=== PATIENT | male | born 1930 | race Caucasian/White ===

== ENCOUNTER 2016-10-25 21:43 | Emergency (ER) | payer MEDICARE, BC ==
[~2016-10-25] VITALS: Ht 167.6 cm; Wt 78.4 kg
[~2016-10-25 21:43] MED LIST: ASPI-483 PO; ATEN-39 PO; INSU100C11 SQ; INSU100C13 SQ; LEVO75TA58 PO; LISI-126 PO; NIFE90TA7 PO; SIMV80TA54 PO
[2016-10-25 21:45] VITALS: TEMP 99.8; Ht 167.6 cm; Wt 78.4 kg
--- OUTSIDE RECORDS SUMMARY | 2016-10-25 21:47 | XMS REPORT | Continuity of Care Document ---
Author Author [facility] Organization [facility] Address Unknown Phone Unavailable Allergies Active Description Code Type Severity Reaction Onset Reported/Identified Relationship to Patient Clinical Status Yes No Known Contrast Allergies No Known Contrast Allergies Drug Allergy Unknown N/A 02/14/2004 Yes No Known Drug Allergies No Known Drug Allergies Drug Allergy Unknown N/A 02/14/2004 Yes No Known Drug Intolerances No Known Drug Intolerances Drug Allergy Unknown N/A 02/14/2004 Yes No Known Food Allergies No Known Food Allergies Drug Allergy Unknown N/A 02/14/2004 Yes NO KNOWN LATEX ALLERGY/SENSITI NO KNOWN LATEX ALLERGY/SENSITI Drug Allergy Unknown N/A 2003 Yes No Known Drug Intolerances No Known Drug Intolerances Drug Allergy Unknown none 06/05/2015 Medications Problems Date Dx Coded Attending Type Code Diagnosis Diagnosed By 06/05/2015 Jayjay Back MD D64.9 ANEMIA, UNSPECIFIED 06/05/2015 Jayjay Back MD E11.21 TYPE 2 DIABETES MELLITUS WITH DIABETIC NEPHROPATHY 06/05/2015 Jayjay Back MD 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 06/05/2015 Jayjay Back MD E83.39 OTHER DISORDERS OF PHOSPHORUS METABOLISM 06/05/2015 Jayjay Back MD 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 06/05/2015 Jayjay Back MD 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 06/05/2015 Jayjay Back MD I95.1 ORTHOSTATIC HYPOTENSION 06/05/2015 Jayjay Back MD J44.9 CHRONIC OBSTRUCTIVE PULMONARY DISEASE, UNSPECIFIED 06/05/2015 Jayjay Back MD N17.9 ACUTE KIDNEY FAILURE, UNSPECIFIED 06/05/2015 Jayjay Back MD N18.3 CHRONIC KIDNEY DISEASE, STAGE 3 (MODERATE) 06/05/2015 Jayjay Back MD R55 SYNCOPE AND COLLAPSE 06/05/2015 Jayjay Back MD Z66 DO NOT RESUSCITATE 06/05/2015 Jayjay Back MD Z79.4 NURSING HOME (CURRENT) USE OF INSULIN 06/05/2015 Jayjay Back MD Z95.1 PRESENCE OF AORTOCORONARY BYPASS GRAFT Procedures Code Description Performed By Performed On [id number] MEASURE OF CARDIAC SAMPL PRESSURE, L HEART, CHAO Back MD, [facility] 06/05/2015 [id number] MEASUREMENT OF ARTERIAL FLOW, CORONARY, PERC APPRO Wong DOUGLASS, [facility] 06/05/2015 [id number] FLUOROSCOPY OF MULT COR ART USING L OSM CONTRAST Wong DOUGLASS [facility] 06/05/2015 [id number] FLUOROSCOPY OF MULT COR A GRAFT USING L OSM CONTRA Wong DOUGLASS, Jayjay 06/05/2015 [id number] FLUOROSCOPY OF R INT MAMM GRAFT USING L OSM CONTRA Wong DOUGLASS [facility] 06/05/2015 [id number] FLUOROSCOPY OF L INT MAMM GRAFT USING L OSM CONTRA 06/05/2015 [id number] FLUOROSCOPY OF BILATERAL RENAL ARTERIES USING L OS Wong DOUGLASS [facility] 06/05/2015 [id number] FLUOROSCOPY OF OTHER LOWER ARTERIES USING L OSM CO Wong DOUGLASS [facility] 06/05/2015 Results Test Result Range URINALYSIS, ROUTINE - 06/05/15 14:20 UA LEUKOCYTE ESTERASE DIPSTICK NEGATIVE NEGATIVE UA NITRITE DIPSTICK NEGATIVE NEGATIVE UA PROTEIN DIPSTICK 1+ NEGATIVE UA GLUCOSE DIPSTICK NEGATIVE NEGATIVE UA KETONE DIPSTICK NEGATIVE NEGATIVE UA UROBILINOGEN DIPSTICK NORMAL NORMAL UA BILIRUBIN DIPSTICK NEGATIVE NEGATIVE UA BLOOD DIPSTICK NEGATIVE NEGATIVE UA SPECIFIC GRAVITY 1.020 1.015-1.025 UR PH 5.0 5.0-7.0 UA MICROSCOPIC - 06/05/15 14:20 UA BACTERIA 1+ NEGATIVE UA EPITHELIAL CELLS 1+ epi/hpf 0 - 1+ UA GRANULAR CAST 2-5 cast/lpf NEGATIVE UA MUCUS 2+ NEG TO 1+ UA RBC 0-3 rbc/hpf 0 - 3 UA SPERM PRESENT UA VOLUME FOR EXAM 12.0 mL (12mL STD) UA WBC 2-5 wbc/hpf 0 - 5 B-TYPE NATRIURETIC PEPTIDE - 06/05/15 14:24 B-TYPE NATRIURETIC PEPTIDE 107 pg/mL < 100 CBC W/DIFF - 06/05/15 14:24 EOSINOPHIL # 0.3 k/cumm 0.1-0.5 EOSINOPHIL % 2 % 2-4 GRANULOCYTE # 10.0 k/cumm 2.0-9.0 GRANULOCYTE % 64 % 50-75 LYMPHOCYTE # 4.2 k/cumm 1.0-4.0 LYMPHOCYTE % 27 % 20-30 MEAN CELL HGB 27.9 pg 27.0-33.0 MEAN CELL HGB CONCENTRATION 31.3 g/dL 32.0-37.0 MEAN CELL VOLUME 89.3 fl 80.0-100.0 MONOCYTE # 1.1 k/cumm 0.1-1.0 MONOCYTE % 7 % 4-6 RED BLOOD CELL 4.66 m/cumm 4.00-6.00 RED CELL DISTRIBUTION WIDTH 14.7 % 11.0- 15.6 WHITE BLOOD CELL 15.6 k/cumm 5.0-10.0 HEMOGLOBIN 13.0 gm/dL 14.0-18.0 HEMATOCRIT 41.6 % 40.0-54.0 PLATELET COUNT 331 k/cumm 150-400 PROTHROMBIN TIME WITH INR - 06/05/15 14:24 INTERNATIONAL NORMAL RATIO 1.1 0.9-1.1 PROTHROMBIN TIME 12.1 sec 9.3-12.2 PARTIAL THROMBOPLASTIN TIME - 06/05/15 14:24 PARTIAL THROMBOPLASTIN TIME 33 sec 23-39 METABOLIC PANEL, COMPREHN - 06/05/15 14:24 POTASSIUM 4.8 mmol/L 3.5-5.3 EST GFR (MDRD) 30 mL/min > 59 ANION GAP 8 mmol/L 5-15 EST CrCl (CG) 26 mL/min > 59 GLUCOSE 212 mg/dL 70-99 CALCIUM 8.2 mg/dL 8.5-10.1 BLOOD UREA NITROGEN 35 mg/dL 7-20 CREATININE 2.1 mg/dL 0.7-1.3 SODIUM 139 mmol/L 135-148 CHLORIDE 107 mmol/L 98-110 AST/SGOT 13 Units/L 10-37 ALT/SGPT 21 Units/L < 66 CARBON DIOXIDE 24 mmol/L 21-32 TOTAL PROTEIN 7.8 gm/dL 6.4-8.2 ALBUMIN 3.1 gm/dL 3.4-5.0 BILI TOTAL 0.4 mg/dL 0.0-1.0 ALKALINE PHOSPHATASE TOTAL 99 IU/L 45- 117 MAGNESIUM - 06/05/15 14:24 MAGNESIUM 1.9 mg/dL 1.8-2.4 THYROID STIM HORMONE (TSH) - 06/05/15 14:24 THYROID STIM HORMONE (TSH) 2.90 uIU/mL 0.34-4.82 TROPONIN I - 06/05/15 14:24 TROPONIN I < 0.02 ng/mL < 0.07 GLUCOSE (POC) - 06/05/15 17:07 GLUCOSE (POC) 221 mg/dL 70-99 TROPONIN I - 06/05/15 17:53 TROPONIN I < 0.02 ng/mL < 0.07 GLUCOSE (POC) - 06/05/15 20:00 GLUCOSE (POC) 163 mg/dL 70-99 TROPONIN I - 06/05/15 22:39 TROPONIN I < 0.02 ng/mL < 0.07 GLUCOSE (POC) - 06/06/15 04:54 GLUCOSE (POC) 155 mg/dL 70-99 METABOLIC PANEL, BASIC - 06/06/15 05:14 POTASSIUM 4.3 mmol/L 3.5-5.3 EST GFR (MDRD) 34 mL/min > 59 ANION GAP 7 mmol/L 5-15 EST CrCl (CG) 29 mL/min > 59 GLUCOSE 153 mg/dL 70-99 CALCIUM 8.0 mg/dL 8.5-10.1 BLOOD UREA NITROGEN 35 mg/dL 7-20 CREATININE 1.9 mg/dL 0.7-1.3 SODIUM 139 mmol/L 135-148 CHLORIDE 108 mmol/L 98-110 CARBON DIOXIDE 24 mmol/L 21-32 LIPID PANEL - 06/06/15 05:14 CHOLESTEROL/HDL RATIO 5.0 < 5.0 LDL CHOLESTEROL 83 mg/dL < 100 VLDL CHOLESTEROL 33 mg/dL < 30 TRIGLYCERIDES 164 mg/dL < 150 CHOLESTEROL 145 mg/dL < 200 HDL CHOLESTEROL 29 mg/dL > 39 GLUCOSE (POC) - 06/06/15 12:16 GLUCOSE (POC) 113 mg/dL 70-99 GLUCOSE (POC) - 06/06/15 17:10 GLUCOSE (POC) 101 mg/dL 70-99 GLUCOSE (POC) - 06/06/15 21:00 GLUCOSE (POC) 275 mg/dL 70-99 GLUCOSE (POC) - 06/07/15 07:09 GLUCOSE (POC) 124 mg/dL 70-99 CBC - 06/07/15 11:20 MEAN CELL HGB 28.2 pg 27.0-33.0 MEAN CELL HGB CONCENTRATION 32.1 g/dL 32.0-37.0 MEAN CELL VOLUME 88.0 fl 80.0-100.0 RED BLOOD CELL 4.43 m/cumm 4.00-6.00 RED CELL DISTRIBUTION WIDTH 14.6 % 11.0- 15.6 WHITE BLOOD CELL 12.4 k/cumm 5.0-10.0 HEMOGLOBIN 12.5 gm/dL 14.0-18.0 HEMATOCRIT 39.0 % 40.0-54.0 PLATELET COUNT 335 k/cumm 150-400 RENAL FUNCTION PANEL - 06/07/15 11:20 POTASSIUM 4.3 mmol/L 3.5-5.3 EST GFR (MDRD) 34 mL/min > 59 ANION GAP 6 mmol/L 5-15 EST CrCl (CG) 29 mL/min > 59 GLUCOSE 80 mg/dL 70-99 CALCIUM 8.1 mg/dL 8.5-10.1 BLOOD UREA NITROGEN 34 mg/dL 7-20 CREATININE 1.9 mg/dL 0.7-1.3 SODIUM 141 mmol/L 135-148 CHLORIDE 107 mmol/L 98-110 CARBON DIOXIDE 28 mmol/L 21-32 ALBUMIN 2.9 gm/dL 3.4-5.0 PHOSPHORUS 2.7 mg/dL 2.5-4.9 GLUCOSE (POC) - 06/07/15 11:29 GLUCOSE (POC) 83 mg/dL 70-99 GLUCOSE (POC) - 06/07/15 17:17 GLUCOSE (POC) 129 mg/dL 70-99 GLUCOSE (POC) - 06/07/15 20:59 GLUCOSE (POC) 194 mg/dL 70-99 GLUCOSE (POC) - 06/08/15 05:35 GLUCOSE (POC) 125 mg/dL 70-99 GLUCOSE (POC) - 06/08/15 11:53 GLUCOSE (POC) 129 mg/dL 70-99 GLUCOSE (POC) - 06/08/15 17:27 GLUCOSE (POC) 129 mg/dL 70-99 GLUCOSE (POC) - 06/08/15 20:27 GLUCOSE (POC) 191 mg/dL 70-99 PROTHROMBIN TIME WITH INR - 06/09/15 04:48 INTERNATIONAL NORMAL RATIO 1.0 0.9-1.1 PROTHROMBIN TIME 11.4 sec 9.3-12.2 CBC - 06/09/15 04:49 MEAN CELL HGB 27.9 pg 27.0-33.0 MEAN CELL HGB CONCENTRATION 31.8 g/dL 32.0-37.0 MEAN CELL VOLUME 87.8 fl 80.0-100.0 RED BLOOD CELL 4.33 m/cumm 4.00-6.00 RED CELL DISTRIBUTION WIDTH 14.8 % 11.0- 15.6 WHITE BLOOD CELL 13.3 k/cumm 5.0-10.0 HEMOGLOBIN 12.1 gm/dL 14.0-18.0 HEMATOCRIT 38.0 % 40.0-54.0 PLATELET COUNT 318 k/cumm 150-400 RENAL FUNCTION PANEL - 06/09/15 04:49 POTASSIUM 4.4 mmol/L 3.5-5.3 EST GFR (MDRD) 36 mL/min > 59 ANION GAP 8 mmol/L 5-15 EST CrCl (CG) 31 mL/min > 59 GLUCOSE 147 mg/dL 70-99 CALCIUM 8.7 mg/dL 8.5-10.1 BLOOD UREA NITROGEN 27 mg/dL 7-20 CREATININE 1.8 mg/dL 0.7-1.3 SODIUM 140 mmol/L 135-148 CHLORIDE 109 mmol/L 98-110 CARBON DIOXIDE 23 mmol/L 21-32 ALBUMIN 3.0 gm/dL 3.4-5.0 PHOSPHORUS 2.3 mg/dL 2.5-4.9 MAGNESIUM - 06/09/15 04:49 MAGNESIUM 2.0 mg/dL 1.8-2.4 GLUCOSE (POC) - 06/09/15 05:37 GLUCOSE (POC) 160 mg/dL 70-99 GLUCOSE (POC) - 06/09/15 11:50 GLUCOSE (POC) 163 mg/dL 70-99 GLUCOSE (POC) - 06/09/15 17:16 GLUCOSE (POC) 122 mg/dL 70-99 GLUCOSE (POC) - 06/10/15 05:12 GLUCOSE (POC) 140 mg/dL 70-99 CBC - 06/10/15 06:46 MEAN CELL HGB 28.0 pg 27.0-33.0 MEAN CELL HGB CONCENTRATION 31.9 g/dL 32.0-37.0 MEAN CELL VOLUME 87.7 fl 80.0-100.0 RED BLOOD CELL 4.22 m/cumm 4.00-6.00 RED CELL DISTRIBUTION WIDTH 14.8 % 11.0- 15.6 WHITE BLOOD CELL 11.9 k/cumm 5.0-10.0 HEMOGLOBIN 11.8 gm/dL 14.0-18.0 HEMATOCRIT 37.0 % 40.0-54.0 PLATELET COUNT 298 k/cumm 150-400 RENAL FUNCTION PANEL - 06/10/15 09:39 POTASSIUM 4.4 mmol/L 3.5-5.3 EST GFR (MDRD) 38 mL/min > 59 ANION GAP 9 mmol/L 5-15 EST CrCl (CG) 32 mL/min > 59 GLUCOSE 190 mg/dL 70-99 CALCIUM 8.5 mg/dL 8.5-10.1 BLOOD UREA NITROGEN 24 mg/dL 7-20 CREATININE 1.7 mg/dL 0.7-1.3 SODIUM 139 mmol/L 135-148 CHLORIDE 106 mmol/L 98-110 CARBON DIOXIDE 24 mmol/L 21-32 ALBUMIN 2.9 gm/dL 3.4-5.0 PHOSPHORUS 2.6 mg/dL 2.5-4.9 GLUCOSE (POC) - 06/10/15 12:08 GLUCOSE (POC) 101 mg/dL 70-99 GLUCOSE (POC) - 06/10/15 17:01 GLUCOSE (POC) 107 mg/dL 70-99 GLUCOSE (POC) - 06/10/15 20:07 GLUCOSE (POC) 245 mg/dL RENAL FUNCTION PANEL - 06/11/15 04:48 POTASSIUM 4.2 mmol/L 3.5-5.3 EST GFR (MDRD) 34 mL/min > 59 ANION GAP 10 mmol/L 5-15 EST CrCl (CG) 29 mL/min > 59 GLUCOSE 132 mg/dL 70-99 CALCIUM 8.1 mg/dL 8.5-10.1 BLOOD UREA NITROGEN 33 mg/dL 7-20 CREATININE 1.9 mg/dL 0.7-1.3 SODIUM 139 mmol/L 135-148 CHLORIDE 107 mmol/L 98-110 CARBON DIOXIDE 22 mmol/L 21-32 ALBUMIN 2.7 gm/dL 3.4-5.0 PHOSPHORUS 2.8 mg/dL 2.5-4.9 GLUCOSE (POC) - 06/11/15 05:59 GLUCOSE (POC) 138 mg/dL 70-99 GLUCOSE (POC) - 06/11/15 10:06 GLUCOSE (POC) 158 mg/dL 70-99 GLUCOSE (POC) - 06/11/15 12:18 GLUCOSE (POC) 359 mg/dL 70-99 GLUCOSE (POC) - 06/11/15 18:09 GLUCOSE (POC) 140 mg/dL 70-99 GLUCOSE (POC) - 06/11/15 21:21 GLUCOSE (POC) 191 mg/dL 70-99 RENAL FUNCTION PANEL - 06/12/15 05:13 POTASSIUM 4.4 mmol/L 3.5-5.3 EST GFR (MDRD) 36 mL/min > 59 ANION GAP 8 mmol/L 5-15 EST CrCl (CG) 31 mL/min > 59 GLUCOSE 123 mg/dL 70-99 CALCIUM 8.3 mg/dL 8.5-10.1 BLOOD UREA NITROGEN 30 mg/dL 7-20 CREATININE 1.8 mg/dL 0.7-1.3 SODIUM 139 mmol/L 135-148 CHLORIDE 108 mmol/L 98-110 CARBON DIOXIDE 23 mmol/L 21-32 ALBUMIN 2.7 gm/dL 3.4-5.0 PHOSPHORUS 2.4 mg/dL 2.5-4.9 GLUCOSE (POC) - 06/12/15 05:46 GLUCOSE (POC) 132 mg/dL 70-99 GLUCOSE (POC) - 06/12/15 12:40 GLUCOSE (POC) 152 mg/dL 70-99 Encounters ACCT No. Visit Date/Time Discharge Status Pt. Type Provider Facility Loc./Unit Complaint [id number] 06/05/2015 10:31:00 2015 17:39:00 DIS Inpatient Wong DOUGLASS, [facility] [id number]
[2016-10-25] MEDS ORDERED: ONDANSETRON 4mg/2ml INJECTION IV ONE (22:15)
[2016-10-25] MEDS ORDERED: NORMAL SALINE 1,000 ML IV ONE (22:15)
--- NOTE | 2016-10-25 22:16 | ERPDOC ---
Departure Disposition Decision Date: October 26, 2016 Disposition Decision Time: 01:53 Disposition: DISCHARGED HOME, SELF-CARE Impression Impression Impression: Primary Impression: Diverticulitis Diverticulitis site: large intestine Diverticulitis bleeding: without bleeding Diverticulitis complication: without perforation or abscess Qualified Codes: K57.32 - Diverticulitis of large intestine without perforation or abscess without bleeding Severity: Moderate Condition: Improved Seen By: Physician only Referrals: WOLF CRUZ DO (Family) Patient Instructions: Diverticulitis (ED) Problems/Meds/Labs Reviewed?: Yes Medications reviewed and manag: Yes Additional Instructions: Zofran 4 mg dissolvable tablets, one every 6 hours as needed for nausea Bactrim DS, one tablet twice daily for 10 days See your doctor later this week for any worsening or ongoing problems Follow up care ordered?: Yes Mental Status: Alert Scripts Ondansetron (Zofran Odt) 4 Mg Tab.rapdis 4 MG PO Q6HR, #10 TAB Oral disintegrating tablet Prov: WOLF STEELE MD 10/26/16 Sulfamethoxazole/Trimethoprim (Bactrim Ds Tablet) 1 Each Tablet 1 TAB PO BID, #20 TAB Take 1 tablet, by mouth, 2 times a day. Prov: WOLF STEELE MD 10/26/16 HPI - Abdominal Pain General Chief Complaint: Nausea,Vomiting,Diarrhea Stated Complaint: VOMITING,SYNCOPE Time Seen by Provider: 22:07 Source: patient History/Exam Limitations: no limitations HPI - Abdominal Pain Initial Comments Patient became nauseated as he was walking to go to the bathroom in his assisted living apartment [facility]. Once in the bathroom the patient vomited a large amount, and then walking back to bed patient became lightheaded, fell onto all fours, and then apparently passed out for a few seconds. Patient was able to initiate his medical arm, EMS was contacted and found the patient hypotensive briefly, but this realized by the time he was in the ER. Currently the patient states he is a full gassy feeling in the lower abdomen, mild persistent nausea, but all other symptoms have resolved. Occurred At: home Onset: Rapid Duration: 1 hr Quality: fullness Location: RLQ, LLQ Radiation: no radiation Associated Symptoms: nausea/vomiting, syncope, weakness, DENIES: back pain, chest pain, diaphoresis, fatigue, fever/chills, headache, heartburn, rash, shortness of breath, swelling/mass in abdomen Hx of Similar Symptoms: No Allergies: Coded Allergies: No Known Drug Allergies (Verified Allergy, Unknown, 08/25/11) Past History Patient Medical History Problem List Updates: Diverticulosis Past Medical History Metabolic: diabetes, hypercholesterolemia, hypertension Cardiac: CAD Respiratory: COPD Family History Family PMH: FOUND: COPD, CA, diabetes, hypertension Vaccines Hx Influenza Vaccination: Yes (2010) Hx Pneumococcal Vaccination: Yes (2008) Hx Tetanus, Diptheria, Pertuss: Yes (UNKNOWN, NO SKIN TEAR) Social History Smoking Status: Never smoker Does patient use chewing tobac: No Second Hand Exposure: No Substance Use Type: does not use Alcohol Intake: none Record Review Pertinent history updated: Yes Review of Systems Constitutional Constitutional: DENIES: appetite decrease, appetite increase, chills, dizziness , fever, weakness ENMT Ears: DENIES: pain Hearing: DENIES: hearing loss, tinnitus Balance: DENIES: vertigo Mouth/Throat: DENIES: change in swallowing, change in voice, hoarsness, painful swallowing, sore throat Cardiovascular Cardiac: DENIES: chest pain, dyspnea on exertion Rhythm/Rate: DENIES: irregular beat, palpitations, tachycardia Vascular: DENIES: pedal edema Pulmonary Respiratory: DENIES: cough, dyspnea, pleuritic chest pain GI Upper Abdomen: DENIES: dysphagia, heartburn/indigestion, nausea, pain, vomiting Lower Abdomen: DENIES: blood in stool, constipation, diarrhea, pain General: DENIES: burning, dysuria, frequency, pain, urgency Musculoskeletal General: DENIES: cramps, joint pain, joint swelling, pain, weakness Integumentary Skin: DENIES: rash, sores Neurological General: DENIES: headache, numbness, tingling, vertigo, weakness Psychiatric Psychiatric: DENIES: anxiety, depression, nervousness Physical Exam General General Nourishment: well nourished, well developed, appears stated age, no acute distress General Body Habitus: well groomed Vitals and Pain First Documented Vital Signs Date Time Temp Pulse Resp B/P Pulse Ox O2 Delivery O2 Flow Rate FiO2 10/25/16 21:45 99.8 70 20 139/62 96 Room Air Weight: Kilograms: Height (feet): Height (inches): Triage Pain Scale: RN VS reviewed by Provider: Yes Normal Exams: Head: Normocephalic w/o trauma Eyes: Pupils are PERRLA w/ EOMI, No scleral icterus, irritation, or foreign bodies noted ENMT: No facial trauma, nasal exudates, pharyngeal erythema, or exudates are noted Neck: Full range of motion, without adenopathy, JVD, bruits or thyromegaly Chest/Resp: Clear all arambula, with good airflow, and symmetry bilaterally CV: Regular rate and rhythm, without murmur or gallop, Pulses 2+ all extremities, capillary refill, <2 seconds all ext., no pedal edema noted Lymphatic: No lymphadenopathy, or lymphedema noted Musculoskeletal: No tenderness, or deformity noted, good range of motion, all extremities Integumentary: No rashes, hives, or bruising noted, hair and nails, without abnormality Neurologic: Patient is alert, and oriented, cranial nerves, motor/sensory/ cerebellar, exams w/o gross deficits, to observation Psychiatric: Patient exhibits, appropriate attention, emotion and affect Abdomen (brief) Abdominal Brief: FOUND: bowel normo active x4, soft, tender (mild diffuse lobe Neo tenderness, minimal.), NOT FOUND: distended, hepatosplenomegaly, pulsatile mass Progress Results/Orders Orders Procedure Category Date Status Time Iv Lock (Ed Only) EDM 10/25/16 Transmitted 22:08 Cbc W/Auto LAB 10/25/16 Complete Diff-Reflex Manual Cmp - Comprehensive LAB 10/25/16 Complete Metabolic Ondansetron Inj PHA 10/25/16 Complete (Zofran) 22:15 Normal Saline (Normal PHA 10/25/16 Complete Saline Iv) 22:15 Ct Abd/Pelvis W/O CT 10/25/16 Logged Contrast Hydromorphone PHA 10/26/16 Complete (Dilaudid) 00:00 Sulfamethoxazole/Trimethoprim PHA 10/26/16 In Process (Bactrim D 09:00 Methylprednisolone PHA 10/26/16 Complete Sod Succ (Solu-Medrol 01:30 Ondansetron Odt PHA 10/26/16 Complete (Prepack) (Zofran Odt 01:30 UA, LAB 10/26/16 Complete Dip&Micro(Complete) & 01:21 Lab Results Laboratory Tests Test 10/25/16 22:21 10/26/16 01:21 White Blood Count 13.6T/MM3 Red Blood Count 4.02M/MM3 Hemoglobin 12.0GM/DL Hematocrit 36.5% Mean Corpuscular Volume 90.8UM3 Mean Corpuscular Hemoglobin 29.9UUG Mean Corpuscular Hemoglobin Concent 32.9GM/DL RDW Standard Deviation 47.2FL Platelet Count 467T/MM3 Mean Platelet Volume 11.2UM3 Immature Granulocyte % (Auto) % Neutrophils (%) (Auto) % Lymphocytes (%) (Auto) % Monocytes (%) (Auto) % Eosinophils (%) (Auto) % Basophils (%) (Auto) % Absolute Immature Granulocyte (auto T/MM3 Absolute Neutrophils (auto) T/MM3 Absolute Lymphocytes (auto) T/MM3 Absolute Monocytes (auto) T/MM3 Absolute Eosinophils (auto) T/MM3 Absolute Basophils (auto) T/MM3 Neutrophils % (Manual) 81.0% Band Neutrophils % 3.0% Lymphocytes % (Manual) 12.0% Monocytes % (Manual) 3.0% Eosinophils % (Manual) 1.0% Absolute Neutrophils (Manual) 11.0T/MM3 Band Neutrophils # 0.4T/MM3 Lymphocytes # (Manual) 1.6T/MM3 Monocytes # (Manual) 0.4T/MM3 Eosinophils # (Manual) 0.1T/MM3 Red Cell Morphology Comment Normal Turbidity < 20 Sodium Level 145MEQ/L Potassium Level 3.8MEQ/L Chloride Level 101MEQ/L Carbon Dioxide Level 20MEQ/L Anion Gap 24MEQ/L Blood Urea Nitrogen 43.0MG/DL Creatinine 2.4MG/DL Glomerular Filtration Rate Calc 26 BUN/Creatinine Ratio 18RATIO Glucose Level 147MG/DL Calculated Osmolality 293MOSM/KG Calcium Level 9.4MG/DL Total Bilirubin 4.80MG/DL Icterus Index < 2 Aspartate Amino Transf (AST/SGOT) 148U/L Alanine Aminotransferase (ALT/SGPT) 138U/L Alkaline Phosphatase 1004U/L Total Protein 7.7G/DL Albumin 4.0G/DL Globulin 3.7G/DL Albumin/Globulin Ratio 1.1RATIO Chemistry Specimen Hemolysis < 15 Urine Collection Type Cleancatch-midstream Urine Color Yellow Urine Turbidity Clear Urine pH 5.0 Urine Specific Glover 1.020 Urine Protein 1+ Urine Glucose (UA) Trace Urine Ketones Negative Urine Blood 1+ Urine Nitrite Negative Urine Bilirubin 2+ Urine Urobilinogen 4.0EU/DL Urine Leukocyte Esterase Negative Urine RBC 1-3/HPF Urine WBC None seen/HPF Urine Bacteria None seen Urine Culture Indicated Cult not indicated Medications Current ED Medications Ondansetron HCl 4 mg 4 mg O ONCE IV Last administered on 10/25/16 22:32; Start 10/25/16 at 22:15; Stop 10/25/16 at 22:16; Status DC Sodium Chloride (Normal Saline IV) 1,000 ml @ 0 mls/hr Q0M ONCE IV Last administered on 10/25/16 22:32; Start 10/25/16 at 22:15; Stop 10/25/16 at 22:16 ; Status DC Hydromorphone HCl (Dilaudid) 0.5 mg O ONCE IV Last administered on 10/26/16 00:00; Start 10/26/16 at 00:00; Stop 10/26/16 at 00:01; Status DC Trimethoprim/ Sulfamethoxazole (Bactrim Ds) 1 tab BID PO Last administered on 01:30; Start 10/26/16 at 09:00 Methylprednisolone Sodium Succinate (Solu-Medrol) 125 mg O ONCE IV Last administered on 10/26/16 01:27; Start 10/26/16 at 01:30; Stop 10/26/16 at 01:31 ; Status DC Ondansetron HCl (ZOFRAN ODT (PrePack)) 1 pack O ONCE SENT HOME Last administered on 10/26/16 01:29; Start 10/26/16 at 01:30; Stop 10/26/16 at 01:31 ; Status DC Progress Progress Patient given 1 L normal saline IV fluid bolus and Zofran 4 mg IV - patient has had no relief Given Dilaudid 0.5 mg IV CBC - normal CMP - shows significant abnormalities consistent with the patient's previous history, but we have no reference loss since 2011. Creatinine is elevated at 2+ , bilirubin is elevated at 4.9, liver enzymes are globally elevated with alkaline phosphatase greater than 1000. UA -positive bilirubin, otherwise normal CT abdomen pelvis without - mild diverticulitis Patient elects home treatment, started on her 25 mg Solu-Medrol IV in the ER and Bactrim DS twice daily for 10 days. Patient also given Zofran for nausea Patient has known, and bile duct traction, is seeing a specialist in 3 weeks, and has no symptoms with stable lab values. WOLF STEELE MD October 25, 2016 22:16
--- OUTSIDE RECORDS SUMMARY | 2016-10-25 22:19 | XMS REPORT | Continuity of Care Document ---
Author Author [facility] Organization [facility] Address Unknown Phone Unavailable Allergies Active [...] MD N17.9 ACUTE KIDNEY FAILURE, UNSPECIFIED 06/05/2015 aJyjay Back MD N18.3 CHRONIC KIDNEY DISEASE, STAGE 3 (MODERATE) 06/05/2015 Jayjay Back MD R55 SYNCOPE AND COLLAPSE 06/05/2015 Jayjay Back MD Z66 DO NOT RESUSCITATE 06/05/2015 Jayjay Back MD Z79.4 PRISON (CURRENT) USE OF INSULIN 06/05/2015 Jayjay Back MD Z95.1 PRESENCE OF AORTOCORONARY BYPASS GRAFT Procedures Code Description Performed By Performed On [id number] MEASURE OF CARDIAC SAMPL PRESSURE, L HEART, CHAO Back MD, [facility] 06/05/2015 [id number] MEASUREMENT OF ARTERIAL FLOW, CORONARY, PERC APPRO Wong DOUGLASS, [facility] 06/05/2015 [id number] FLUOROSCOPY OF MULT COR ART USING L OSM CONTRAST Wong DOUGLASS [facility] 06/05/2015 [id number] FLUOROSCOPY OF MULT COR A GRAFT USING L OSM CONTRA Wong DOUGLASS, Jayjay 06/05/2015 [id number] FLUOROSCOPY OF R INT MAMM GRAFT USING L OSM CONTRA Wong DOUGLASS [facility] 06/05/2015 [id number] FLUOROSCOPY OF L INT MAMM GRAFT USING L OSM CONTRA 06/05/2015 [id number] FLUOROSCOPY OF BILATERAL RENAL ARTERIES USING L OS Wong DOUGLASS [facility] 06/05/2015 [id number] FLUOROSCOPY OF OTHER LOWER ARTERIES USING L OSM CO Wong DOUGLASS [facility] 06/05/2015 Results Test Result Range URINALYSIS, ROUTINE [...] Status Pt. Type Provider Facility Loc./Unit Complaint [id number] 06/05/2015 10:31:00 2015 17:39:00 DIS Inpatient Wong DOUGLASS, [facility] [address]
--- NOTE | 2016-10-25 22:20 | NUR ---
LAB IN WITH ELIZABETH
--- NOTE | 2016-10-25 22:20 | NUR ---
PHARMACY PT STATES THAT HE USES [facility]
[2016-10-25 22:29] LABS: HCT - HEMATOCRIT 36.5 % (41-53); MEAN CORPUSCULAR HGB 29.9 UUG (26-34); MEAN CORPUSCULAR HGB CONC(MCHC 32.9 GM/DL (31-37); MEAN CORPUSCULAR VOLUME 90.8 UM3 (80-100); MEAN PLATELET VOLUME 11.2 UM3 (9.4-12.4); RED BLOOD COUNT 4.02 M/MM3 (4.50-5.90); WBC - WHITE BLOOD COUNT 13.6 T/MM3 (4.5-11.0)
[2016-10-25 22:38] LABS: ALBUMIN/GLOBULIN RATIO 1.1 RATIO (1.1-2.2); ALKALINE PHOSPHATASE 1004 U/L (38-126); ALT (SGPT) 138 U/L (21-72); ANION GAP 24 MEQ/L (5-15); AST (SGOT) 148 U/L (17-59); BUN/CREATININE RATIO 18 RATIO (6-26); CALCIUM 9.4 MG/DL (8.4-10.2); CHLORIDE 101 MEQ/L (98-107); CO2 - CARBON DIOXIDE 20 MEQ/L (22-30); CREATININE 2.4 MG/DL (0.8-1.5); GLOMERULAR FILTRATION RATE 26; GLUCOSE 147 MG/DL (75-110); POTASSIUM 3.8 MEQ/L (3.6-5); SODIUM 145 MEQ/L (134-144); TOTAL PROTEIN 7.7 G/DL (6.3-8.2)
[2016-10-25 22:48] LABS: BAND NEUTROPHILS # 0.4 T/MM3; EOSINOPHILS # (MANUAL) 0.1 T/MM3 (0-0.5); LYMPHOCYTES # (MANUAL) 1.6 T/MM3 (1-4.8); MONOCYTES # (MANUAL) 0.4 T/MM3 (0-0.8)
[2016-10-26] MEDS ORDERED: HYDROMORPHONE 2mg/ml INJECTION IV ONE
--- NOTE | 2016-10-26 00:57 | NUR ---
STATUS PT RESTING WITH EYES CLOSED ON CART. RESPIRATIONS EVEN AND UNLABORED.
[2016-10-26 01:28] LABS: BLOOD, URINE 1+ (NEGATIVE); COLOR,URINE YELLOW (YELLOW); LEUKOCYTE ESTERASE ,URINE NEGATIVE (NEGATIVE); NITRITE,URINE NEGATIVE (NEGATIVE)
[2016-10-26] MEDS ORDERED: ONDANSETRON ODT 4mg #3 (PrePack) SENT HOME ONE (01:30)
[2016-10-26 01:32] LABS: BACTERIA,URINE NONE SEEN (NEGATIVE); WBC,URINE NONE SEEN /HPF (0-5)
[2016-10-26] MEDS ORDERED: SULF1TAB42 PO (01:54)
[2016-10-26] MEDS ORDERED: ONDA4TAB7 PO (01:54)
[2016-10-26 02:07] VITALS: BP 119/56; PULSE 62; RESP 12; O2SAT 94
--- NOTE | 2016-10-26 02:07 | NUR ---
DEPART PT IS DISCHARGED AT THIS TIME, PT IS ASSISTED TO DRESS BY FAMILY AND LEAVES VIA WHEELCHAIR.
--- NOTE | 2016-10-26 07:58 | DI ---
Indication: ITS.REASON: lower abd pain, vomiting PROCEDURE: CT ABD/PELVIS W/O CONTRAST: Encounter: Initial Comparison: August 11, 2016 Technique: Axial CT images were performed through the abdomen and pelvis without intravenous contrast. Coronal and sagittal two-dimensional reformats. Automated Exposure Control and Iterative Reconstruction dose reducing techniques were utilized. Findings: The possible intrapulmonary lymph node along the right major fissure measuring 6 mm in size on axial image #12. Mild atelectasis in the right lower lobe. Heart is enlarged. The liver shows no contour deforming mass and scattered granulomas. The gallbladder is surgically absent. Granulomatous disease within the normal sized spleen. There is density within the distal common duct, similar to the prior study with continued dilatation of the extrahepatic duct which has worsened now measuring up to 2 cm in diameter. Kidneys are stable. No abdominal or pelvic adenopathy or bladder appears normal. No free fluid. Sigmoid diverticulosis is again noted without evidence of acute diverticulitis. Some colonic wall thickening the proximal sigmoid colon. There is a giant diverticulum again noted between the sigmoid colon and the bladder without adjacent inflammatory change. No evidence of a bowel obstruction. The appendix is normal. Bone windows show degenerative changes in the spine. Impression: 1. Continued choledocholithiasis with worsening common duct obstruction. Again ERCP is recommended for further evaluation. 2. 6 mm right lower lobe pulmonary nodule. Recommend follow-up noncontrast chest CT in 12 months to evaluate for stability. 3. Colonic wall thickening in the proximal sigmoid colon. Recommend flexible sigmoidoscopy or colonoscopy for further evaluation to exclude neoplasm. There is a preliminary report by [facility]. .
[2016-10-26] MEDS ORDERED: SULFAMETHOXAZOLE/TMP 800mg/160mg TABLET PO SCH (09:00)
== END 2016-10-26 02:07 | disposition home or self-care (01) ==
LOC: ED 21:43
DX: K57.32 Diverticulitis of large intestine without perforation or abscess without bleeding (principal)
CPT/HCPCS: 74176; 80053; 81001; 85025; 96361; 96374; 96375; 99284; A9270; J1170; J2405; J2930; J7030

== ENCOUNTER 2017-05-02 12:12 | Inpatient (IN) ==
--- OUTSIDE RECORDS SUMMARY | 2017-05-02 12:29 | External Medical Summary | Continuity of Care Document ---
:1930 Author Organization [facility] Allergies Active Description Code Type Severity Reaction Onset Reported/ Identified Relationship Clinical to Patient Status Yes No Known No Drug Unknown N/A 02/14/2004 Contrast Known Aller Allergies Contr gy ast Aller gies Yes No Known No Drug Unknown N/A 02/14/2004 Drug Known Aller Allergies Drug gy Aller gies Yes No Known No Drug Unknown N/A 02/14/2004 Drug Known Aller Intolerances Drug gy Intol eranc es Yes No Known No Drug Unknown N/A 02/14/2004 Food Known Aller Allergies Food gy Aller gies Yes NO KNOWN NO Drug Unknown N/A 02/14/2004 LATEX KNOWN Aller ALLERGY/SENS LATEX gy ITI ALLER GY/SE NSITI Yes No Known No Drug Unknown none 06/05/2015 Drug Known Aller Intolerances Drug gy Intol eranc es Medications Problems Date Dx Attending Type Code Diagnosis Diagnosed By Coded 06/05/2015 Wong DOUGLASS, F D64.9 ANEMIA, UNSPECIFIED Jayjay 06/05/2015 Wong DOUGLASS, F 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 06/05/2015 Wong DOUGLASS, F E11.22 TYPE 2 DIABETES Jayjay MELLITUS W DIABETIC CHRONIC KIDNEY 06/05/2015 Wong DOUGLASS, F 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 06/05/2015 Wong DOUGLASS, F I12.9 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 06/05/2015 Wong DOUGLASS, F 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 06/05/2015 Wong DOUGLASS, F I95.1 ORTHOSTATIC Jayjay HYPOTENSION 06/05/2015 Wong DOUGLASS, F J44.9 CHRONIC OBSTRUCTIVE Jayjay PULMONARY DISEASE, UNSPECIFIED 06/05/2015 Wong DOUGLASS, F N17.9 ACUTE KIDNEY Jayjay FAILURE, UNSPECIFIED 06/05/2015 Wong DOUGLASS, F N18.3 CHRONIC KIDNEY Jayjay DISEASE, STAGE 3 (MODERATE) 06/05/2015 Wong DOUGLASS, A R55 SYNCOPE AND COLLAPSE Jayjay 06/05/2015 Wong DOUGLASS, F Z66 DO NOT RESUSCITATE Jayjay 06/05/2015 Wong DOUGLASS, F 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 06/05/2015 Wong DOUGLASS, F 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 10/28/2016 Jovana DOUGLASS, J F D64.9 ANEMIA, UNSPECIFIED Anirudh 10/28/2016 Jovana DOUGLASS, J F D72.829 ELEVATED WHITE BLOOD Anirudh CELL COUNT, UNSPECIFIED 10/28/2016 Jovana DOUGLASS, J F E03.9 HYPOTHYROIDISM, Anirudh UNSPECIFIED 10/28/2016 Jovana DOUGLASS, J F E11.649 TYPE 2 DIABETES Anirudh MELLITUS WITH HYPOGLYCEMIA WITHOUT 10/28/2016 Jovana DOUGLASS, J F E78.5 HYPERLIPIDEMIA, Anirudh UNSPECIFIED 10/28/2016 Jovana DOUGLASS, J F 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 10/28/2016 Jovana DOUGLASS, J F 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 10/28/2016 Jovana DOUGLASS, J F J44.9 CHRONIC OBSTRUCTIVE Anirudh PULMONARY DISEASE, UNSPECIFIED 10/28/2016 Jovana DOUGLASS, J F K57.92 DVTRCLI OF INTEST, Anirudh PART UNSP, W/O PERF OR ABSCESS 10/28/2016 Jovana DOUGLASS, J F K80.51 CALCULUS OF BILE Anirudh DUCT W/O CHOLANGITIS OR CHOLECYST 10/28/2016 Jovana DOUGLASS, J F K92.0 HEMATEMESIS Anirudh 10/28/2016 Jovana DOUGLASS, J F N17.9 ACUTE KIDNEY Anirudh FAILURE, UNSPECIFIED 10/28/2016 Jovana DOUGLASS, J F Z79.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) Anirudh USE OF INSULIN 10/28/2016 Jovana DOUGLASS, J F Z79.82 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) Anirudh USE OF ASPIRIN 10/28/2016 Jovana DOUGLASS, J F Z95.1 PRESENCE OF Anirudh AORTOCORONARY BYPASS GRAFT Procedures Code Description Performed By Performed On Jayjay Back MD 06/05/2015 [id number] MEASURE OF CARDIAC SAMPL PRESSURE, L HEART, PERC Amirani MD, [facility] 06/05/2015 [id number] MEASUREMENT OF ARTERIAL FLOW, CORONARY, CHAO Back MD, Jayjay 06/05/2015 [id number] FLUOROSCOPY OF MULT COR ART USING L OSM CONTRAST Wong DOUGLASS Jayjay 06/05/2015 [id number] FLUOROSCOPY OF MULT COR A GRAFT USING L OSM CONTRA Wong DOUGLASS Jayjay 06/05/2015 [id number] FLUOROSCOPY OF R INT MAMM GRAFT USING L OSM CONTRA 06/05/2015 [id number] FLUOROSCOPY OF L INT MAMM GRAFT USING L OSM CONTRA Wong DOUGLASS Jayjay 06/05/2015 [id number] FLUOROSCOPY OF BILATERAL RENAL ARTERIES USING L OS Wong DOUGLASS Jayjay 06/05/2015 [id number] FLUOROSCOPY OF OTHER LOWER ARTERIES USING L OSM CO Nettie Mace DO 10/28/2016 [id number] EXTIRPATION OF MATTER FROM COMMON BILE DUCT, ENDO Encounters ACCT Visit Discharge Status Pt. Type Provider Facility Loc./Unit Complaint No. Date/Time [id number] 10/28/2016 10/31/2016 DIS Inpatient oJvana [id number] [id number] 15:38:00 15:14:00 MD [facility] [id number] 06/05/2015 06/12/2015 DIS Inpatient Wong [id number] [id number] 10:31:00 17:39:00 , [facility]
--- NOTE | 2017-05-02 12:37 | Emergency Department Report ---
SOB HPI - General Chief Complaint: Shortness of Breath/Dyspnea <Rick Noriega - 05/03/17 07:11 > Stated Complaint: Sent by Dr Hill, diff breathing <Johanna Noriegan - 07:11> Time Seen by Provider: 05/02/17 12:15 <Rick Noriega - 05/03/17 07:11> Source: patient <KymvenkataJessica 05/02/17 12:37> Mode of arrival: wheelchair <Jessica Eddy 05/02/17 12:37> Limitations: no limitations <Jessica Eddy 05/02/17 12:37> - History of Present Illness Pt brought over from his PCP office where he arrived with a complaint of SOA and not feeling well for about 2 weeks. SpO2 at PCP was in the 80s after ambulation pt was dyspnic and showed some potential changes on his EKG. Here pt c/o SOA with a non productive cough. He denies CP or nausea but does report diaphoresis at night. Denies pedal edema <Jessica Eddy 05/02/17 12:37> MD Complaint: shortness of breath, cough <Jessica Eddy 05/02/17 12:41> Onset (ago): week(s) <Jessica Eddy 05/02/17 12:41> Severity: moderate <Jessica Eddy 05/02/17 12:41> Consistency/Duration: constant <Jessica Eddy 05/02/17 12:41> Relieving factors: nothing <Jessica Eddy 05/02/17 12:41> Exacerbating factors: exertion, movement <Jessica Eddy 05/02/17 12:41> Known history of: diabetes <Jessica Eddy 05/02/17 12:41> Associated symptoms: cough, diaphoresis <Jessica Eddy 05/02/17 12:41> Treatment prior to arrival: aspirin <Jessica Eddy 05/02/17 12:41> - Related Data Home oxygen amount: none <Jessica Eddy 05/02/17 12:41> Home Medications Medication Instructions Recorded Confirmed Atenolol 50 mg PO DAILY #0 06/18/09 05/02/17 Simvastatin [Zocor] 80 mg PO HS #0 06/18/09 05/02/17 Aspirin [Aspirin EC] 81 mg PO DAILY 04/27/17 05/02/17 Calcitriol [Rocaltrol] 0.25 mcg PO DAILY 04/27/17 05/02/17 Insulin Aspart [Novolog Flexpen] 8 unit SQ WB 04/27/17 05/02/17 Insulin Aspart [Novolog Flexpen] 10 unit SQ WS 04/27/17 05/02/17 Insulin Aspart [Novolog Flexpen] 14 unit SQ WL 04/27/17 05/02/17 Insulin Glargine,Hum.rec.anlog 60 unit SQ HS 04/27/17 05/02/17 [Lantus Solostar] Levothyroxine Sodium 50 mcg PO DAILY 04/27/17 05/02/17 NIFEdipine [Nifedipine ER] 90 mg PO DAILY 04/27/17 05/02/17 [place]-3S/Dha/Epa/Fish Oil [Fish 300 mg PO BID 04/27/17 05/02/17 Oil [place]-3 Softgel] Aspirin [Aspirin EC] 243 mg PO O 05/02/17 05/02/17 D-Methorphan/PE/Acetaminophen 2 tab PO BID PRN 05/02/17 05/02/17 [Tylenol Cold Multi-Symp Caplet] <Rick Noriega - 05/03/17 07:11> Allergies Allergy/AdvReac Type Severity Reaction Status Date / Time No Known Drug Allergies Allergy Unknown Verified 05/02/17 12:41 <Rick Noriega - 05/03/17 07:11> Review of Systems All systems: reviewed and negative except as stated <Jessica Eddy 12:41> Constitutional: Reports: weakness. Denies: fever, chills <Jessica Eddy 05/02/17 12:41> Cardiovascular: Reports: dyspnea on exertion. Denies: chest pain, palpitations , edema <Jessica Eddy 05/02/17 12:41> Respiratory: Reports: cough, dyspnea. Denies: wheezes <Jessica Eddy 05/02/17 12:41> Gastrointestinal: Denies: abdominal pain, nausea, vomiting, diarrhea < SurjitJessica Mclean 05/02/17 12:41> Musculoskeletal: Reports: arthralgia <SurjitJessica Edwina Mclean 05/02/17 12:41> Neurological: Reports: weakness <Jessica Eddy 05/02/17 12:41> [facility] Patient Stated Medical History Cataracts Yes Hypertension Yes Myocardial Infarction Yes Diabetes Mellitus Type 2 Yes Clinic Medical History NSTEMI (non-ST elevated myocardial infarction) (Acute Medical) Myocardial infarction acute (Acute Medical) Myocardial infarction complications (Acute Medical) 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) Essential (primary) hypertension (Chronic Medical) Mixed hyperlipidemia (Chronic Medical) Type 2 diabetes mellitus without complications (Chronic Medical) CKD (chronic kidney disease) (Chronic Medical) COPD (chronic obstructive pulmonary disease) (Chronic Medical) Hypoglycemia (Inactive Medical) <Rick Noriega 05/03/17 07:11> Surgical History: Eye Surgery <SurjitJessica Edwina 05/02/17 12:37> - Social History Smoking status: Former smoker <Luis DanieldavidJessica 05/02/17 12:37> Physical Exam - Limitations Limitations: no limitations <KymvenkataJessica Mclean 05/02/17 12:41> - General General appearance: alert <Rick Noriega 05/03/17 07:11> alert, in distress <SurjitJessica Bland 05/02/17 12:41> - Normal Exams: Head:: Normocephalic without trauma <Jessica Eddy Edwina Mclean 05/02/17 12:41> Eyes:: Pupils are PERRLA w/ EOMI <SurjitJessica Mclean 05/02/17 12:41> Neck:: Full range of motion, without adenopathy <Jessica Eddy Edwina Mclean 12:41> Cardiovascular:: Regular rate and rhythm, without murmur or gallop, Pulses 2+ all extremities <Jessica Eddy 05/02/17 12:41> Abdomen:: Bowel sounds positive, soft, non-tender, non-distended <Jessica Eddy R - 05/02/17 12:41> Musculoskeletal:: No tenderness, or deformity noted, good range of motion, all extremities <Jessica Eddy - 05/02/17 12:41> Integumentary:: No rashes <Jessica Eddy - 05/02/17 12:41> Neurological:: Patient is alert, and oriented, cranial nerves, motor/sensory/ cerebellar, exams w/o gross deficits, to observation <Jessica Eddy - 12:41> Psychiatric:: Patient exhibits, appropriate attention, emotion and affect < Jessica Eddy - 05/02/17 12:41> - Respiratory Respiratory exam: Present: respiratory distress, accessory muscle use. Absent: wheezes, stridor <GoveRick - 05/03/17 07:11> Present: respiratory distress, accessory muscle use < Jessica Eddy - 05/02/17 12:59> - Expanded Respiratory Exam Location: Right: decreased breath sounds, Lower: decreased breath sounds < Jessica Eddy - 05/02/17 12:59> - Cardiovascular Cardiovascular exam: Present: regular rate, normal rhythm, normal heart sounds. Absent: systolic murmur <Rick Noriega Q - 05/03/17 07:11> - Abdominal Exam Abdominal exam: Present: soft, normal bowel sounds. Absent: distention, tenderness <Rick Noriega Q - 05/03/17 07:11> - Neurological Exam Neurological exam: Present: alert, oriented X3 <Rick Noriega - 05/03/17 07: 11> - Psychiatric Psychiatric exam: Present: normal affect, normal mood <Rick Noriega Q - 05/03 07:11> Course Vital Signs Temperature 97.7 F 05/02/17 12:13 Pulse Rate 61 05/02/17 12:13 Respiratory Rate 26 H 05/02/17 12:13 Blood Pressure 188/78 H 05/02/17 12:13 Pulse Oximetry 95 05/02/17 12:13 Temperature 98.3 F 05/03/17 00:00 Pulse Rate 59 L 05/03/17 06:00 Respiratory Rate 42 H 05/03/17 06:00 Blood Pressure 168/79 H 05/03/17 06:00 Pulse Oximetry 97 05/03/17 06:00 <Rick Noriega - 05/03/17 07:11> Vital Signs Temperature 97.7 F 05/02/17 12:13 Pulse Rate 61 05/02/17 12:13 Respiratory Rate 26 H 05/02/17 12:13 Blood Pressure 188/78 H 05/02/17 12:13 Pulse Oximetry 95 05/02/17 12:13 Temperature 98.3 F 05/03/17 00:00 Pulse Rate 59 L 05/03/17 06:00 Respiratory Rate 42 H 05/03/17 06:00 Blood Pressure 168/79 H 05/03/17 06:00 Pulse Oximetry 97 05/03/17 06:00 <Jessica Eddy 05/02/17 12:41> Shortness of Breath/Dyspnea - [facility] Narrative Medical decision making narrative: This patient seen and examined by me, given EKG changes, EKG was presented to Dr. Back, cardiology. Dr. Rosales did not feel that this was an acute CO, however did agree that there was signs of myocardial ischemia. Patient's troponin returned at 3.3. Dr. Rosales was recontacted, decision was made to admit to the CCU, possible heart cath today. <Rick Noriega - 05/03/17 07:11> Labs, Xray, and EKG reviewed. Discussed with Dr Noriega who made notification with Dr Ty.. Pt is to be admitted for heart cath. Family and pt advised of findings and need for admission, questions answered and pt verbalizes understanding <Jessica Eddy 05/02/17 14:03> - Differential Diagnosis Likely: acute exacerbation of chronic obstructive airways disease, congestive heart failure, community acquired pneumonia, pulmonary embolism <Jessica Eddy 05/02/17 12:41> - Medical Records Attestation: I reviewed the patient's medical records. <Rick Noriega 07:11> - Lab Data Attestation: I reviewed the patient's lab results. <Rick Noriega - 05/03 07:11> I reviewed the patient's lab results. <Jessica Eddy 14:03> Result diagrams: 05/03/17 04:25 05/03/17 04:25 <Rick Noriega Q - 05/03/17 07:11> Lab Results 05/02/17 05/02/17 05/02/17 Range/Units 12:41 12:41 12:41 WBC 13.7 H (4.5-11.0) T/MM3 RBC 3.97 L (4.50-5.90) M/MM3 Hgb 11.2 L (13.5-17.5) GM/DL Hct 35.0 L (41-53) % MCV 88.2 (80-100) UM3 MCH 28.2 (26-34) UUG MCHC 32.0 (31-37) GM/DL RDW Std Deviation 48.2 (36.9-50.2) FL Plt Count 357 (130-400) T/MM3 MPV 11.3 (9.4-12.4) UM3 Immature Gran % (Auto) 0.3 (0.0-0.5) % Neut % (Auto) 72.0 H (33-66) % Lymph % (Auto) 18.0 L (23-45) % [place] % (Auto) 8.7 (0-9.0) % Eos % (Auto) 0.6 (0-4) % Baso % (Auto) 0.4 (0-2) % Neut # (Auto) 9.9 H (1.8-7.7) T/MM3 Lymph # (Auto) 2.5 (1-4.8) T/MM3 [place] # (Auto) 1.2 H (0-0.8) T/MM3 Eos # (Auto) 0.1 (0-0.5) T/MM3 Baso # (Auto) 0.1 (0-0.2) T/MM3 Abs Immat Gran (auto) 0.04 H (0.00-0.03) T/MM3 D-Dimer 1002 H (0-230) NG/ML Turbidity < 20 (0-20) Sodium 141 (134-144) MEQ/L Potassium 5.0 (3.6-5) MEQ/L Chloride 107 (98-107) MEQ/L Carbon Dioxide 19 L (22-30) MEQ/L Anion Gap 15 (5-15) MEQ/L BUN 50.0 H (9-20) MG/DL Creatinine 2.5 H (0.8-1.5) MG/DL GFR Calculation 24 BUN/Creatinine Ratio 20 (6-26) RATIO Glucose 228 H (75-110) MG/DL Calculated Osmolality 291 H (261-280) MOSM/KG Calcium 8.9 (8.4-10.2) MG/DL Total Bilirubin 0.70 (0.20-1.30) MG/DL Icterus Index < 2 (0-7) AST 26 (17-59) U/L ALT 44 (21-72) U/L Alkaline Phosphatase 177 H (38-126) U/L Troponin I 3.300 H (0-0.12) ng/ml B-Natriuretic Peptide 42513 H (0-175) pg/mL Total Protein 7.2 (6.3-8.2) G/DL Albumin 3.5 (3.5-5.0) G/DL Globulin 3.7 H (2.4-3.6) G/DL Albumin/Globulin Ratio 0.9 L (1.1-2.2) RATIO Plasma Lactate 2.2 (0.6-2.2) MMOL/L Specimen Hemolysis 18 (0-25) Ur Collection Type Urine Color (YELLOW) Urine Clarity Urine pH (5.0-8.0) Ur Specific [place] (1.015-1.025) Urine Protein (NEGATIVE) Urine Glucose (UA) (NEGATIVE) Urine Ketones (NEGATIVE) Urine Occult Blood (NEGATIVE) Urine Nitrate (NEGATIVE) Urine Bilirubin (NEGATIVE) Urine Urobilinogen (NORMAL) EU/DL Ur Leukocyte Esterase (NEGATIVE) Urine RBC (0-3) /HPF Urine WBC (0-5) /HPF Ur Transition Epith Cell /HPF Urine Bacteria (NEGATIVE) Ur Culture Indicated? 05/02/17 Range/Units 13:15 WBC (4.5-11.0) T/MM3 RBC (4.50-5.90) M/MM3 Hgb (13.5-17.5) GM/DL Hct (41-53) % MCV (80-100) UM3 MCH (26-34) UUG MCHC (31-37) GM/DL RDW Std Deviation (36.9-50.2) FL Plt Count (130-400) T/MM3 MPV (9.4-12.4) UM3 Immature Gran % (Auto) (0.0-0.5) % Neut % (Auto) (33-66) % Lymph % (Auto) (23-45) % [place] % (Auto) (0-9.0) % Eos % (Auto) (0-4) % Baso % (Auto) (0-2) % Neut # (Auto) (1.8-7.7) T/MM3 Lymph # (Auto) (1-4.8) T/MM3 [place] # (Auto) (0-0.8) T/MM3 Eos # (Auto) (0-0.5) T/MM3 Baso # (Auto) (0-0.2) T/MM3 Abs Immat Gran (auto) (0.00-0.03) T/MM3 D-Dimer (0-230) NG/ML Turbidity (0-20) Sodium (134-144) MEQ/L Potassium (3.6-5) MEQ/L Chloride (98-107) MEQ/L Carbon Dioxide (22-30) MEQ/L Anion Gap (5-15) MEQ/L BUN (9-20) MG/DL Creatinine (0.8-1.5) MG/DL GFR Calculation BUN/Creatinine Ratio (6-26) RATIO Glucose (75-110) MG/DL Calculated Osmolality (261-280) MOSM/KG Calcium (8.4-10.2) MG/DL Total Bilirubin (0.20-1.30) MG/DL Icterus Index (0-7) AST (17-59) U/L ALT (21-72) U/L Alkaline Phosphatase (38-126) U/L Troponin I (0-0.12) ng/ml B-Natriuretic Peptide (0-175) pg/mL Total Protein (6.3-8.2) G/DL Albumin (3.5-5.0) G/DL Globulin (2.4-3.6) G/DL Albumin/Globulin Ratio (1.1-2.2) RATIO Plasma Lactate (0.6-2.2) MMOL/L Specimen Hemolysis (0-25) Ur Collection Type Urine, catheter Urine Color Yellow (YELLOW) Urine Clarity Clear Urine pH 5.0 (5.0-8.0) Ur Specific [place] 1.025 (1.015-1.025) Urine Protein 2+ A (NEGATIVE) Urine Glucose (UA) Trace A (NEGATIVE) Urine Ketones Negative (NEGATIVE) Urine Occult Blood 1+ A (NEGATIVE) Urine Nitrate Negative (NEGATIVE) Urine Bilirubin Negative (NEGATIVE) Urine Urobilinogen 1.0 (NORMAL) EU/DL Ur Leukocyte Esterase Negative (NEGATIVE) Urine RBC 5-10 H (0-3) /HPF Urine WBC None seen (0-5) /HPF Ur Transition Epith Cell 1-3 /HPF Urine Bacteria Trace H (NEGATIVE) Ur Culture Indicated? Cult not indicated <Rick Noriega Q - 05/03/17 07:11> Lab Results 05/02/17 05/02/17 05/02/17 Range/Units 12:41 12:41 12:41 WBC 13.7 H (4.5-11.0) T/MM3 RBC 3.97 L (4.50-5.90) M/MM3 Hgb 11.2 L (13.5-17.5) GM/DL Hct 35.0 L (41-53) % MCV 88.2 (80-100) UM3 MCH 28.2 (26-34) UUG MCHC 32.0 (31-37) GM/DL RDW Std Deviation 48.2 (36.9-50.2) FL Plt Count 357 (130-400) T/MM3 MPV 11.3 (9.4-12.4) UM3 Immature Gran % (Auto) 0.3 (0.0-0.5) % Neut % (Auto) 72.0 H (33-66) % Lymph % (Auto) 18.0 L (23-45) % [place] % (Auto) 8.7 (0-9.0) % Eos % (Auto) 0.6 (0-4) % Baso % (Auto) 0.4 (0-2) % Neut # (Auto) 9.9 H (1.8-7.7) T/MM3 Lymph # (Auto) 2.5 (1-4.8) T/MM3 [place] # (Auto) 1.2 H (0-0.8) T/MM3 Eos # (Auto) 0.1 (0-0.5) T/MM3 Baso # (Auto) 0.1 (0-0.2) T/MM3 Abs Immat Gran (auto) 0.04 H (0.00-0.03) T/MM3 D-Dimer 1002 H (0-230) NG/ML Turbidity < 20 (0-20) Sodium 141 (134-144) MEQ/L Potassium 5.0 (3.6-5) MEQ/L Chloride 107 (98-107) MEQ/L Carbon Dioxide 19 L (22-30) MEQ/L Anion Gap 15 (5-15) MEQ/L BUN 50.0 H (9-20) MG/DL Creatinine 2.5 H (0.8-1.5) MG/DL GFR Calculation 24 BUN/Creatinine Ratio 20 (6-26) RATIO Glucose 228 H (75-110) MG/DL Calculated Osmolality 291 H (261-280) MOSM/KG Calcium 8.9 (8.4-10.2) MG/DL Total Bilirubin 0.70 (0.20-1.30) MG/DL Icterus Index < 2 (0-7) AST 26 (17-59) U/L ALT 44 (21-72) U/L Alkaline Phosphatase 177 H (38-126) U/L Troponin I 3.300 H (0-0.12) ng/ml B-Natriuretic Peptide 59656 H (0-175) pg/mL Total Protein 7.2 (6.3-8.2) G/DL Albumin 3.5 (3.5-5.0) G/DL Globulin 3.7 H (2.4-3.6) G/DL Albumin/Globulin Ratio 0.9 L (1.1-2.2) RATIO Plasma Lactate 2.2 (0.6-2.2) MMOL/L Specimen Hemolysis 18 (0-25) Ur Collection Type Urine Color (YELLOW) Urine Clarity Urine pH (5.0-8.0) Ur Specific [place] (1.015-1.025) Urine Protein (NEGATIVE) Urine Glucose (UA) (NEGATIVE) Urine Ketones (NEGATIVE) Urine Occult Blood (NEGATIVE) Urine Nitrate (NEGATIVE) Urine Bilirubin (NEGATIVE) Urine Urobilinogen (NORMAL) EU/DL Ur Leukocyte Esterase (NEGATIVE) Urine RBC (0-3) /HPF Urine WBC (0-5) /HPF Ur Transition Epith Cell /HPF Urine Bacteria (NEGATIVE) Ur Culture Indicated? 05/02/17 Range/Units 13:15 WBC (4.5-11.0) T/MM3 RBC (4.50-5.90) M/MM3 Hgb (13.5-17.5) GM/DL Hct (41-53) % MCV (80-100) UM3 MCH (26-34) UUG MCHC (31-37) GM/DL RDW Std Deviation (36.9-50.2) FL Plt Count (130-400) T/MM3 MPV (9.4-12.4) UM3 Immature Gran % (Auto) (0.0-0.5) % Neut % (Auto) (33-66) % Lymph % (Auto) (23-45) % [place] % (Auto) (0-9.0) % Eos % (Auto) (0-4) % Baso % (Auto) (0-2) % Neut # (Auto) (1.8-7.7) T/MM3 Lymph # (Auto) (1-4.8) T/MM3 [place] # (Auto) (0-0.8) T/MM3 Eos # (Auto) (0-0.5) T/MM3 Baso # (Auto) (0-0.2) T/MM3 Abs Immat Gran (auto) (0.00-0.03) T/MM3 D-Dimer (0-230) NG/ML Turbidity (0-20) Sodium (134-144) MEQ/L Potassium (3.6-5) MEQ/L Chloride (98-107) MEQ/L Carbon Dioxide (22-30) MEQ/L Anion Gap (5-15) MEQ/L BUN (9-20) MG/DL Creatinine (0.8-1.5) MG/DL GFR Calculation BUN/Creatinine Ratio (6-26) RATIO Glucose (75-110) MG/DL Calculated Osmolality (261-280) MOSM/KG Calcium (8.4-10.2) MG/DL Total Bilirubin (0.20-1.30) MG/DL Icterus Index (0-7) AST (17-59) U/L ALT (21-72) U/L Alkaline Phosphatase (38-126) U/L Troponin I (0-0.12) ng/ml B-Natriuretic Peptide (0-175) pg/mL Total Protein (6.3-8.2) G/DL Albumin (3.5-5.0) G/DL Globulin (2.4-3.6) G/DL Albumin/Globulin Ratio (1.1-2.2) RATIO Plasma Lactate (0.6-2.2) MMOL/L Specimen Hemolysis (0-25) Ur Collection Type Urine, catheter Urine Color Yellow (YELLOW) Urine Clarity Clear Urine pH 5.0 (5.0-8.0) Ur Specific [place] 1.025 (1.015-1.025) Urine Protein 2+ A (NEGATIVE) Urine Glucose (UA) Trace A (NEGATIVE) Urine Ketones Negative (NEGATIVE) Urine Occult Blood 1+ A (NEGATIVE) Urine Nitrate Negative (NEGATIVE) Urine Bilirubin Negative (NEGATIVE) Urine Urobilinogen 1.0 (NORMAL) EU/DL Ur Leukocyte Esterase Negative (NEGATIVE) Urine RBC 5-10 H (0-3) /HPF Urine WBC None seen (0-5) /HPF Ur Transition Epith Cell 1-3 /HPF Urine Bacteria Trace H (NEGATIVE) Ur Culture Indicated? Cult not indicated <Jessica Eddy R 05/02/17 12:41> - Radiology Data Attestation: I reviewed the patient's radiology results. <Rick Noriega Q 05/03/17 07:11> I reviewed the patient's radiology results. (read per Dr Woodson and Dr Noriega) <Jessica Eddy 05/02/17 14:03> Faint haziness in the right lower lobe, atelectasis versus edema versus infiltrate <Rick Noriega Q 05/03/17 07:11> - EKG Data EKG #1 EKG attestation: Yes: I reviewed and interpreted this EKG. <Rikc Noriega Q 05/03/17 07:11> Rate: normal <Rick Noriega Q 05/03/17 07:11> Isabel/QRS: normal <Rick Noriega Q 05/03/17 07:11> Heart block present: 1st Degree <Rick Noriega 05/03/17 07:11> ST segment elevation in: III, aVF <Rick Noriega Q 05/03/17 07:11> ST segment depression in: v3, v4, v5 <Rick Noriega Q 05/03/17 07:11> When compared to previous EKG there are: changes noted <Rick Noriega Q - 07:11> Interpretation: subendocardial ischemia <Rick Noriega - 05/03/17 07:11> Disposition Clinical Impression: Myocardial infarction complications Myocardial infarction acute Qualifiers: Myocardial infarction ST status: non-ST elevation myocardial infarction Qualified Code(s): I21.4 - Non-ST elevation (NSTEMI) myocardial infarction <Johanna Noriegan 05/03/17 07:11> Disposition: 02 To [facility] [place] <Johanna Noriegan [place] 05/03/17 07:11> Condition: Stable <Rick Noriega 05/03/17 07:11> Instructions: <Rick Noriega 05/03/17 07:11> Prescriptions: No Action Atenolol 50 mg PO DAILY #0 [place]-3S/Dha/Epa/Fish Oil [Fish Oil [place]-3 Softgel] 300 mg PO BID Insulin Aspart [Novolog Flexpen] 10 unit SQ WS Insulin Aspart [Novolog Flexpen] 14 unit SQ WL Levothyroxine Sodium 50 mcg PO DAILY Aspirin [Aspirin EC] 81 mg PO DAILY NIFEdipine [Nifedipine ER] 90 mg PO DAILY Calcitriol [Rocaltrol] 0.25 mcg PO DAILY Aspirin [Aspirin EC] 243 mg PO O D-Methorphan/PE/Acetaminophen [Tylenol Cold Multi-Symp Caplet] 2 tab PO BID PRN PRN Reason: Prn Orders Simvastatin [Zocor] 80 mg PO HS #0 Insulin Glargine,Hum.rec.anlog [Lantus Solostar] 60 unit SQ HS Insulin Aspart [Novolog Flexpen] 8 unit SQ WB <Johanna Noriegan 05/03/17 07:11> Referrals: Willy Hill DO [Family Provider] - <Johanna Noriegan - 07:11> Forms: <Johanna Noriegan 05/03/17 07:11> Time of Disposition: 14:03 <Jessica Eddy - 05/02/17 14:03> - Seen By: midlevel and physician <Jessica Eddy - 05/02/17 14:03>
--- NOTE | 2017-05-02 13:20 | XRay Report ---
Indication: dyspnea Procedure: XR chest 1V: Encounter: Initial Comparison: 09/06/2011 Technique: A single portable AP chest radiograph was obtained. Findings: Lungs and airways: Normal lung volumes. Hazy asymmetric right basilar consolidation. Normal pulmonary vasculature. Pleura: No pleural effusion or pneumothorax. Heart and mediastinum: Cardiomegaly. Aortic atherosclerosis.. Osseous structures and soft tissues: No acute osseous abnormality is seen. Postoperative changes of median sternotomy. Degenerative arthrosis of the AC joints. Impression: Hazy asymmetric right basilar airspace consolidation suggesting developing pneumonia. .
[2017-05-02] MEDS ORDERED: HEPARIN 1,000unit/ml INJECTION 10ml IV ONE (13:38)
--- NOTE | 2017-05-02 13:43 | Cardiology History & Physical ---
History of Present Illness Chief complaint: BROOKS HPI: Damian is a 86 year old male who is known to Dr. Back's practice with a history of CAD with CABG, HTN, HLD, DM type II, CKD and COPD. Today he was brought to the ED from his PCPs office where he arrived with a complaint of SOA and not feeling well for about 2 weeks. SpO2 at PCP was in the 80s after ambulation. He was dyspneic and showed some potential changes on his EKG. In the ED He reportedly complained of SOA with a non productive cough. He denied CP or nausea but does report diaphoresis at night. Denies pedal edema. His last heart cath was 06/09/2015: LAD & Cx occluded proximally, All OMs 90%, Diagonal 90% diffuse, RCA occluded mid. Grafts: ORDONEZ to LAD patent, SVG to RCA patent, Caudal branch of MAGALIE 90%SVG to MOM occluded. His last echo was 08/30/16: EF 56%, biatrial dilation, mild MR, Ao sclerosis, mild TR, mod PHTN, PAP 57. Review of Systems - Constitutional Constitutional: Absent: chills, fatigue, fever(s) - EENMT Eyes: Absent: change in vision Balance: Absent: vertigo Mouth/Throat: Absent: sore throat - Cardiovascular Cardiovascular: Present: dyspnea on exertion, orthopnea. Absent: chest pain, palpitations, syncope Vascular: Absent: pedal edema - Respiratory Respiratory: Present: cough, dyspnea, dyspnea on exertion, wheezing - Gastrointestinal Gastrointestinal: Absent: constipation, diarrhea, nausea, vomiting - Genitourinary Genitourinary: Absent: dysuria - Integumentary/Breasts Integumentary: Absent: rash - Neurological Neurological: Absent: dizziness - Endocrine Endocrine: Absent: palpitations PFSH Patient Stated Medical History Cataracts Yes Hypertension Yes Myocardial Infarction Yes Diabetes Mellitus Type 2 Yes Hyperlipidemia Yes Thyroid disease Yes COPD Yes CAD Yes Surgical History: CABG x3 2001 Family History: Mother, at age 86, CVA Father, at 97, DM - Social History Smoking status: Former smoker Packs-years: 56 Quit date: 06/06/88 Substance use type: does not use Alcohol intake frequency: does not drink Housing: assisted living facility Household members: none Current occupational status: retired Current residence: Assisted Living Medications Home Medications Medication Instructions Recorded Confirmed Type Atenolol 50 mg PO DAILY #0 06/18/09 05/02/17 History Simvastatin [Zocor] 80 mg PO HS #0 06/18/09 05/02/17 History Aspirin [Aspirin EC] 81 mg PO DAILY 04/27/17 05/02/17 History Calcitriol [Rocaltrol] 0.25 mcg PO DAILY 04/27/17 05/02/17 History Insulin Aspart [Novolog Flexpen] 8 unit SQ WB 04/27/17 05/02/17 History Insulin Aspart [Novolog Flexpen] 10 unit SQ WS 04/27/17 05/02/17 History Insulin Aspart [Novolog Flexpen] 14 unit SQ WL 04/27/17 05/02/17 History Insulin Glargine,Hum.rec.anlog 60 unit SQ HS 04/27/17 05/02/17 History [Lantus Solostar] Levothyroxine Sodium 50 mcg PO DAILY 04/27/17 05/02/17 History NIFEdipine [Nifedipine ER] 90 mg PO DAILY 04/27/17 05/02/17 History Evant-3S/Dha/Epa/Fish Oil [Fish 300 mg PO BID 04/27/17 05/02/17 History Oil Evant-3 Softgel] Aspirin [Aspirin EC] 243 mg PO O 05/02/17 05/02/17 History D-Methorphan/PE/Acetaminophen 2 tab PO BID PRN 05/02/17 05/02/17 History [Tylenol Cold Multi-Symp Caplet] Allergies Allergy/AdvReac Type Severity Reaction Status Date / Time No Known Drug Allergies Allergy Unknown Verified 05/02/17 12:41 Exam Vital signs: Temperature 97.7 F 05/02/17 12:13 Pulse Rate 61 05/02/17 12:13 Respiratory Rate 26 H 05/02/17 12:13 Blood Pressure 188/78 H 05/02/17 12:13 Pulse Oximetry 97 05/02/17 12:25 - Constitutional no acute distress, well nourished, cooperative - Routine HEENT Exam Head: Present: normocephalic ENT: Present: mucous membranes moist - Routine Neck Exam Present: JVD. Absent: carotid bruit - Routine Chest/Breast/Axilla Exam Chest wall: Absent: tenderness - Routine Respiratory Exam Present: decreased breath sounds, rales (bibasilar), diminished air movement. Absent: CTA bilaterally - Routine Cardiovascular Exam Present: RRR, no murmur, bradycardia - Routine Abdominal Exam Present: soft, normoactive bowel sounds - Routine Extremities Exam Present: no edema - Routine Skin Exam Present: intact, dry, warm - Routine Neurological Exam Present: alert, oriented X3 - Routine Psychiatric Exam Present: normal affect, normal thought process Results 05/03/17 04:25 05/03/17 04:25 Cardiac Enzymes 05/02/17 Range/Units 12:41 AST 26 (17-59) U/L Troponin I 3.300 H (0-0.12) ng/ml CBC 05/02/17 Range/Units 12:41 WBC 13.7 H (4.5-11.0) T/MM3 RBC 3.97 L (4.50-5.90) M/MM3 Hgb 11.2 L (13.5-17.5) GM/DL Hct 35.0 L (41-53) % Plt Count 357 (130-400) T/MM3 Neut # (Auto) 9.9 H (1.8-7.7) T/MM3 Lymph # (Auto) 2.5 (1-4.8) T/MM3 [place] # (Auto) 1.2 H (0-0.8) T/MM3 Eos # (Auto) 0.1 (0-0.5) T/MM3 Baso # (Auto) 0.1 (0-0.2) T/MM3 Comprehensive Metabolic Panel 05/02/17 Range/Units 12:41 Sodium 141 (134-144) MEQ/L Potassium 5.0 (3.6-5) MEQ/L Chloride 107 (98-107) MEQ/L Carbon Dioxide 19 L (22-30) MEQ/L BUN 50.0 H (9-20) MG/DL Creatinine 2.5 H (0.8-1.5) MG/DL Glucose 228 H (75-110) MG/DL Calcium 8.9 (8.4-10.2) MG/DL AST 26 (17-59) U/L ALT 44 (21-72) U/L Alkaline Phosphatase 177 H (38-126) U/L Total Protein 7.2 (6.3-8.2) G/DL Albumin 3.5 (3.5-5.0) G/DL Intake and Output 05/01/17 05/02/17 05/02/17 22:59 06:59 14:59 Other: Weight 190 lb 14.725 oz Patient Weight 05/03/17 06:59 Weight 190 lb 14.725 oz - Imaging and Cardiology Echo: pending Imaging & Cardiology Narrative: Date of Exam: 05/02/17 Ordering Provider: Jessica Eddy APRN Type of Exam(s): XR chest 1V Reason for Exam(s): dyspnea Indication: dyspnea Procedure: XR chest 1V: Encounter: Initial Comparison: 09/06/2011 Technique: A single portable AP chest radiograph was obtained. Findings: Lungs and airways: Normal lung volumes. Hazy asymmetric right basilar consolidation. Normal pulmonary vasculature. Pleura: No pleural effusion or pneumothorax. Heart and mediastinum: Cardiomegaly. Aortic atherosclerosis.. Osseous structures and soft tissues: No acute osseous abnormality is seen. Postoperative changes of median sternotomy. Degenerative arthrosis of the AC joints. Impression: Hazy asymmetric right basilar airspace consolidation suggesting developing pneumonia. 05/02/17 15:00 EKG interpretations - EKG EKG results cardiology: sinus rhythm EKG shows: bradycardia Hospital Course This is a general summary of the patient's hospital course. For more details refer to the complete medical record. Time spent with patient: 25 - 35 minutes DVT Prophylaxis: Heparin drip Assessment and Plan - Attestation Attestation Narrative: 05/03/17 14:36 Recommendation After examining the patient I agree with the above assessment. I am involved in the formulation of the patient's plan of care. - Assessment and Plan (1) NSTEMI (non-ST elevated myocardial infarction) Current visit: Yes Status: Acute Denies chest pain or pressure. BROOKS last 2 weeks. - Troponin elevated to 3.300, repeat 3.110 - EKG with ST depression in precordial leads, ST elevation in lead III. 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 Hill, we appreciate your assistance (6) CKD (chronic kidney disease) Current visit: Yes Status: Chronic BUN 50/ CR 2.5 (7) COPD (chronic obstructive pulmonary disease) Current visit: Yes Status: Chronic Exacerbation versus pneumonia. Consult Dr. Hill, thank you for your assistance. - Assessment and Plan NSTEMI: Denies chest pain or pressure. BROOKS last 2 weeks. - Troponin elevated to 3.300, repeat 3.110 - EKG with ST depression in precordial leads, ST elevation in lead III. - NPO for left heart cath today with possible percutaneous intervention COPD: Exacerbation versus pneumonia. Consult Dr. Hill, thank you for your assistance.
[2017-05-02] MEDS ORDERED: HEPARIN DRIP 20,000 UNIT/500 ML BAG IV SCH (13:45)
[2017-05-02] MEDS: SALINE FLUSH 10ml SYRINGE IVF PRN (13:45)
[2017-05-02] MEDS ORDERED: HEPARIN - PHARMACY CONSULT MC ONE (14:25)
[2017-05-02 14:43] VITALS: BMI 29.7
[2017-05-02] MEDS: NS 1,000 ML IV SCH (15:15)
[2017-05-02] MEDS ORDERED: FentaNYL 100 MCG/2 ML INJECTION ONE (15:17)
[2017-05-02] MEDS ORDERED: HEPARIN 1,000unit/ml INJECTION 10ml ONE (15:17)
[2017-05-02] MEDS ORDERED: HEPARIN 1,000 UNITS/500 ML PREMIX (*CVL ONLY*) IV ONE (15:17)
[2017-05-02] MEDS ORDERED: MIDAZOLAM 2mg/2ml INJECTION ONE (15:17)
[2017-05-02] MEDS ORDERED: LIDOCAINE 1% (10mg/ml) 30ml SDV INJ ONE (15:18)
[2017-05-02] MEDS ORDERED: ADENOSINE 6mg/2ml INJECTION IVP ONE (16:08)
[2017-05-02] MEDS ORDERED: EPTIFIBATIDE ONE (16:20)
[2017-05-02] MEDS ORDERED: EPTIFIBATIDE 75 MG/100 ML VIAL IV ONE (16:20)
[2017-05-02] MEDS ORDERED: TICAGRELOR 90 MG TABLET ONE (16:42)
[2017-05-02] MEDS: EPTIFIBATIDE 75 MG/100 ML VIAL IV SCH (16:50)
[2017-05-02] MEDS ORDERED: BISACODYL 10 MG SUPPOSITORY RECTALLY PRN (17:07)
[2017-05-02] MEDS ORDERED: HYDROCODONE/APAP 7.5 MG/325 MG TABLET PO PRN (17:07)
[2017-05-02] MEDS ORDERED: LORazepam 0.5 MG TABLET PO PRN (17:07)
[2017-05-02] MEDS ORDERED: ATROPINE 1 MG/ML INJECTION IVP PRN (17:07)
[2017-05-02] MEDS ORDERED: MAG-AL + SIM ORAL LIQUID 30ml PO PRN (17:07)
[2017-05-02] MEDS ORDERED: MORPHINE SULFATE 4mg INJECTION IVP PRN ×2 (17:07)
[2017-05-02] MEDS ORDERED: PROMETHAZINE 25 MG INJECTION IVP PRN (17:07)
[2017-05-02] MEDS ORDERED: ACETAMINOPHEN 325 MG TABLET PO PRN (17:07)
[2017-05-02] MEDS ORDERED: Bisacodyl EC TAB 5 MG TABLET PO PRN (17:07)
[2017-05-02] MEDS ORDERED: METOCLOPRAMIDE 10mg/2ml INJECTION IVP PRN (17:07)
[2017-05-02] MEDS ORDERED: ONDANSETRON 4 MG/2 ML INJECTION IVP PRN (17:07)
[2017-05-02] MEDS ORDERED: INSULIN ASPART 100unit/ml INJECTION SQ SCH (17:30)
[2017-05-02] MEDS: NITROGLYCERIN 0.4 MG SUBLINGUAL TABLET SL PRN ×3 (18:13→20:06)
[2017-05-02] MEDS ORDERED: PIPERACILLIN/TAZOBACTAM 3.375 GM in NS 100 ML IV ONE (18:30)
--- NOTE | 2017-05-02 18:46 | Pharmacy Consult- Renal Dosing ---
Pharamcy Consul-Renal Dosing - Consult Information RENAL DOSING:Zosyn indication: pneumonia Today's SCr = 2.5 mg/dl. Calculated CrCl = 20 ml/min. Zosyn dose adjusted to Zosyn 2.25 GM IV Q6h Pharmacy will monitor and adjust as needed. Thank you, Jessica Cardona RPh
[2017-05-02] MEDS ORDERED: INSULIN GLARGINE 100unit/ml INJECTION SQ SCH (21:00)
[2017-05-02] MEDS ORDERED: SIMVASTATIN 40 MG TABLET PO SCH (21:00)
[2017-05-02] MEDS ORDERED: DEXTROSE 50% SYRINGE 50ml (1 AMP) IVP PRN (21:20)
[2017-05-02] MEDS ORDERED: GLUCOSE ORAL GEL 40% 37.5gm PO PRN (21:20)
--- NOTE | 2017-05-02 21:24 | Consult Note ---
Consult Information - Data of Consult Consult date: 05/02/17 Requesting Physician: Jayjay Back MD Primary Care Provider: Willy Hill DO Family Provider: Willy Hill DO - Consult Narrative Reason for consult: possible pneumonia History of present illness: patient is a pleasant 86yo male recently established with our clinic. he has a known history of CAD, CKD, T2DM, HTN and hyperlipidemia. his associate account director is Dr. Back. he was seen in our ER a few days ago for low blood sugars and weakness but otherwise no focal issues. he hasn't had much in the way of blood sugar issues since. shortly after leaving the ER he started in with shortness of air on exertion and well as lightheadedness. he eventually developed symptoms like this at rest. he got out of bed late last night and had a near- syncopal episode. he got up to go to the bathroom and became lightheaded. he also again became short of breath. he felt himself becoming weaker and he started to fall. he caught himself on the door handle and eased himself to the ground. he did bump his left temporomandibular junction and temporal area on the right but not very hard. it doesn't appear he lost consciousness. he has no residual pain from the fall. he sat on the ground and rested for about 15 minutes and got himself back up and eventually to bed. he was seen today in clinic and it was noted an EKG had T wave inversions in the inferior and precordial leads and he also had ST depression in the precordial leads as well. he was given a total of 325mg PO aspirin in clinic and sent to the ER for further workup. see clinic noted for further details on this. in the ER he was noted to have a cbc with a mild anemia, a wbc count of about 14,000 and otherwise unremarkable. his cmp demonstrated a creatinine of 2.5 (baseline about 2.0), an Alk phos of 177 and otherwise unremarkable. a d-dimer was about 1000. bnp was markedly high and troponin was about 3.0. repeat EKG's were unchanged from previous in the ER. a CXR showed pulmonary edema versus a budding pneumonia in his RLL and some general congestion otherwise. he was started on heparin in the ER and Dr. Back of cardiovascular care consulted. the patient went urgently to cardiac catheterization where initial verbal reports not significant thrombus still noted in the left RCA but final report is pending. patient has been admitted to the ICU and put on integrelin in hopes of being able to place a stent in a couple of days. he is currently stable on 6 liters of high flow nasal cannula. groin site is stable and no issues there yet. we are consulted for the possibility of pneumonia noted on the CXR earlier today. no fevers. no headaches, stroke symptoms, focal neurologic deficits. has been generally fatigued and weak as noted above without focal weakness. no other falls, trauma, injuries. no ear pain, sinus pain, sore throat. no recent travel, camping, sick exposures, swimming, falcon exposures, rashes, skin changes. no vertigo, tinnitus, hearing changes, cranial nerve symptoms, aspiration symptoms. no decrease in alertness. no altered mentation/sensorum or changes in cognition. no delerium symptoms or confusion. he denies chest pain at rest and at exertion. no full syncope. no vision changes. no blackouts. no new or changing numbness/weakness/tingling anywhere. denies night sweats to me. no unintentional weight loss or other constitutional symptoms. no pain or brusing over right side of face. no neck pain. no residual pain or discomfort from episode last night. no obvious othostatic symptoms. appetite not great but hard to say if this has changed much. no orthopnea, PND, new edema, leg asymmetry, palpitations. has had mild cough over the last few days with clear to yellow sputum. no hemoptysis. no new DVT or PE risk factors from previous baseline. no abdominal pain, nausea, vomiting , hematemesis, coffee ground emesis, dysphagia, GERD symptoms, diarrhea, constipation, bloody/black stools, GI warning symptoms. no dysuria, hematuria, urinary frequency, flank pain, nocturia, urinary/bowel incontinance, polyuria, oliguria, changes in urinary stream. no mood changes or depression symptoms. daughter present for some of encounter today. see above and below for other review of systems as well as clinic note from today. no new issues otherwise at this time. 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 cholecystectomy. ERCP and removal of gallstone from common bile duct. possible prostate surgery in past Family History: -father at age 97 -daughters alive and healthy -mother . had dementia - Social History Smoking status: Former smoker Current residence: Assisted Living Social history: -former smoker but not for years -lives at assisted living -no significant alcohol use -no illicit drug use -retired Review of Systems - Constitutional Constitutional: Present: as per HPI - EENMT Eyes: Present: as per HPI - Cardiovascular Cardiovascular: Present: as per HPI Vascular: Present: see HPI - Respiratory Respiratory: Present: as per HPI - Gastrointestinal Gastrointestinal: Present: as per HPI - Genitourinary Genitourinary: Present: as per HPI - Musculoskeletal Musculoskeletal: Present: as per HPI Musculoskeletal Comments: no new muscle or joint aches. no boggy or inflammed joints. - Integumentary/Breasts Integumentary: Present: as per HPI - Neurological Neurological: Present: as per HPI - Psychiatric Psychiatric: Present: as per HPI - Endocrine Endocrine: Present: as per HPI - Hematologic/Lymphatic Hematologic/Lymphatic: Present: as per HPI - Allergic/Immunologic Allergic/Immunologic: Present: as per HPI Medications Home Medications Medication Instructions Recorded Confirmed Type Atenolol 50 mg PO DAILY #0 06/18/09 05/02/17 History Simvastatin [Zocor] 80 mg PO HS #0 06/18/09 05/02/17 History Aspirin [Aspirin EC] 81 mg PO DAILY 04/27/17 05/02/17 History Calcitriol [Rocaltrol] 0.25 mcg PO DAILY 04/27/17 05/02/17 History Insulin Aspart [Novolog Flexpen] 8 unit SQ WB 04/27/17 05/02/17 History Insulin Aspart [Novolog Flexpen] 10 unit SQ WS 04/27/17 05/02/17 History Insulin Aspart [Novolog Flexpen] 14 unit SQ WL 04/27/17 05/02/17 History Insulin Glargine,Hum.rec.anlog 60 unit SQ HS 04/27/17 05/02/17 History [Lantus Solostar] Levothyroxine Sodium 50 mcg PO DAILY 04/27/17 05/02/17 History NIFEdipine [Nifedipine ER] 90 mg PO DAILY 04/27/17 05/02/17 History Depue-3S/Dha/Epa/Fish Oil [Fish 300 mg PO BID 04/27/17 05/02/17 History Oil Depue-3 Softgel] Aspirin [Aspirin EC] 243 mg PO O 05/02/17 05/02/17 History D-Methorphan/PE/Acetaminophen 2 tab PO BID PRN 05/02/17 05/02/17 History [Tylenol Cold Multi-Symp Caplet] Allergies Allergy/AdvReac Type Severity Reaction Status Date / Time No Known Drug Allergies Allergy Unknown Verified 05/02/17 12:41 Exam Vital Signs: Temperature 97.7 F 05/02/17 12:13 Pulse Rate 68 05/02/17 19:00 Respiratory Rate 40 H 05/02/17 19:00 Blood Pressure 110/57 05/02/17 18:45 Pulse Oximetry 98 05/02/17 19:00 Telemetry Rhythm: Sinus Rhythm Height/Weight/BMI: Height 1.68 m Weight 83.6 kg Body Mass Index 29.7 - Constitutional Present: mild distress, well nourished, well developed, cooperative Comments: not diaphoretic, combative. sensorum normal. not obtunded. - Routine HEENT Exam Head: Present: normocephalic, atraumatic ENT: Present: mucous membranes moist, nares patent - Routine Neck Exam Present: supple, full ROM Comments: no tracheal deviation. no JVD right now. no head trauma. no ecchymosis, brusing or deformity on left side of face/TMJ/temporal area. no bony spine/ neck tenderness. TMJ normal in range of motion at this time. no photophobia. no clinical evidence of meningitis at this time. - Routine Chest/Breast/Axilla Exam Comments: no tenderness to chest wall - Routine Respiratory Exam Comments: lungs actually clear to auscultation bilaterally at this time. moving air at his usual baseline. no crackles, wheezes, rales. no retractions, accessory muscle use, stridor, airway compromise, respiratory distress right now. patient in moderate respiratory distress on exertion though. no new edema in extremities. extremities symmetrical and compartments soft b/l X4 at this time. pulses normal and extremities well perfused in all 4 extremities at this time. patient doesn't appear toxic. legs symmetrical and compartments soft b/ l in extremities X4 at this time. - Routine Cardiovascular Exam Present: RRR Comments: no new murmurs. no changes from previous. see above and below. - Routine Abdominal Exam Present: soft (X4.), normoactive bowel sounds (X4.), non distended (X4.), non tender (X4.) Comments: no rebound, guarding, rigidity. no ascites, distension, jaundice. no organomegally. - Routine Extremities Exam Comments: no flank pain b/l at this time. see above and below. no boggy or inflammed joints. - Routine Back/Spine/Pelvis Exam Comments: see above. - Detailed Skin Exam Comments: no new rashes or skin changes to uncovered areas. - Routine Neurological Exam CN2-12 in tact. DTR's/sensation/motor/muscle strength normal and symmetrical b/ l in extremities X4 at this time. PERRLA. EOMI. no nystagmus. consensual reflex in tact. affect and cognition unchanged from usual baseline. no clinical evidence of ashley, depression, anxiety, altered mentation/sensorum/ alertness, confusion. no changes from usual baseline. - Routine Psychiatric Exam Present: normal affect, normal thought process Comments: no clinical evidence of psychosis, delerium, hallucinations. see above and below. Results - Labs CBC & Chem 7: 05/02/17 18:47 05/02/17 18:53 Microbiology Results: Microbiology 05/02/17 18:53 Peripheral/Iv Start Blood Culture - Preliminary Culture Initiated - Results Pending Assessment and Plan Assessment and Plan: acute NSTEMI infiltrate on CXR, community acquired pneumonia versus cardiogenic pulmonary edema acute hypoxic respiratory failure secondary to the above T2DM HTN chronic kidney disease hyperlipidemia hypothyroid recent episodes of hypoglycemia -vital signs, telemetry, oxygen, cardiac diet, and other admission orders per cardiology. -recheck cbc, cmp, troponin, CK, mg, phos, lactic acid now. continue to follow troponins and lactic acids. check blood cultures X2, sputum culture and gram stain, respiratory PCR, urine strep pneumonia, urine legionella, mycoplasma serologies, procalcitonin, TSH. a1C is 9.4 from earlier today. see the above for other testing and results from this stay. -non contrast CT of chest now to better qualify infiltrate. -echocardiogram pending. EKG's per cardiology. -continue integralin per cardiology. continue brilinta per cardiology. continue ASA, synthroid, home statin, home beta-froylan, calcitriol, procardia. check GLUBS. start novolog s/s. start hypoglycemia protocol. start zosyn IV. would consider vancomycin and floroquinolone but renal issues a concern given baseline chronic kidney disease and recent contrast as well as diureses. spoke with Dr. Yancey of infectious disease and she agrees with just the zosyn for now. continue bumex per cardiology. continue norco prn per cardiology. continue dulcolax prn per cardiology. continue morphine as well as oxygen per cardiology. continue zofran prn, atropine prn, fish oil, nitro sublingual prn. cardiology has patient on low flow IV normal saline for now. -decrease long acting insulin in half for now. hold scheduled short acting insulin for now given recent low blood sugars and will adjust as we go. -cardiology primary. cardiac rehab consulted. infectious disease, Dr. Yancey consulted and spoken with and she agrees with current management. all other chronic medical conditions stable and no changes to plan of care at this time. ppx -intergrelin should serve as DVT ppx. -PO diet as above for GI ppx. -DNR/DNI. patient consulted at length on indications for and details of cardiopulmonary recuscitation including defibrillation, medications to restart heart, intubation, chest compressions. we will abide by the patient's wishes in this regard. -dispo heavily dependent on the above. DVT Prophylaxis: other (integralin. patient had heparin earlier today. ) GI Prophylaxis: other (PO diet.) Resuscitation Status: Do Not Resuscitate (DNR/DNI.) - Time spent with patient Time with patient PN: 50 minutes Sepsis Assessment - Evaluation Possible source: pulmonary SIRS Criteria: pulse > or equal to 90 beats/minute, WBC > or equal to 12,000
--- NOTE | 2017-05-02 22:27 | Cardiac Catheterization Report ---
DATE OF PROCEDURE May 02, 2017 The patient is an 86-year-old gentleman with history of coronary artery disease who was admitted with shortness of breath with elevated troponin and abnormal EKG suggestive of ischemia. He was referred for further evaluation by cardiac catheterization and possible intervention. Informed consent was obtained after explaining the procedure and the potential risks to the patient who agreed to proceed with the procedure. PROCEDURE 1. Left heart catheterization. 2. Coronary angiography. 3. Selective ORDONEZ angiography. 4. Bypass angiography. 5. Thrombectomy and PTCA of the vein graft to RCA. 6. Right femoral angiography to visualize the vessel for closure device. 7. Successful Mynx deployment for hemostasis. TECHNIQUE He was prepped and draped in the usual sterile techniques. Conscious sedation was performed using Versed and fentanyl. 1% lidocaine was used for local anesthesia. Using modified Seldinger technique, arterial access was obtained into the right femoral artery with placement of a 6-Turkmen arterial sheath. The patient was on heparin drip and additional 3000 units of heparin were administered. CORONARY ANGIOGRAPHY Left main was free of significant lesions. Left anterior descending artery was occluded. Ramus intermedius had 99% stenosis with a small-caliber vessel of about 1.5 to 2 mm. Left circumflex artery was occluded. Right coronary artery was occluded. ORDONEZ to LAD was patent with excellent flow. A vein graft to obtuse marginal was occluded. A vein graft to right coronary was occluded with a large quantity of thrombus. This appeared to be the culprit vessel. After reviewing the images we decided to proceed with intervention on the graft to the RCA. A 6-Turkmen multipurpose guide was advanced to the ostium of the graft. A [place] wire was used to cross the lesion into distal graft. A 3.0 by 25 balloon was delivered and multiple overlapping inflations were performed. The next angiogram showed no reconstitution of the blood flow. Next, we used an aspiration catheter which was advanced and multiple aspirations were performed. Through the aspiration catheter we were able to administer intracoronary adenosine. The next angiogram showed reconstitution of the blood flow into distal PDA and posterolateral artery which were small vessels with a large quantity of thrombus distally extending from the graft to the proximal part of the [place] vessel. At this point the case was terminated. Patient tolerated the procedure well with no complications. He was started on Integrilin to improve the thrombus burden. Right femoral angiography showed patent common femoral, proximal SFA and profunda and therefore Mynx was used for hemostasis. IMPRESSION 1. Coronary artery disease as described above. 2. Occlusion of the graft to the RCA which appears to be the culprit vessel. 3. Successful recanalization and thrombectomy and PTCA of the graft to the RCA. 4. Successful Mynx deployment for hemostasis. PLAN Will continue Integrilin to improve the thrombus burden and will bring him back in a day or two to repeat angiography and possibly proceed with stent deployment. ARTHUR
[2017-05-02] MEDS: TICAGRELOR 90 MG TABLET PO SCH (22:48)
[2017-05-03] MEDS: PIPERACILLIN/TAZOBACTAM 2.25 GM in NS 100 ML IV SCH ×4 (01:09→19:47)
[2017-05-03] MEDS ORDERED: ACETAMINOPHEN 325 MG TABLET PO PRN ×3 (01:15→22:49)
[2017-05-03] MEDS: EPTIFIBATIDE 75 MG/100 ML VIAL IV SCH ×3 (05:29→23:54)
[2017-05-03] MEDS: LEVOTHYROXINE 50 MCG TABLET PO SCH (05:39)
[2017-05-03] MEDS: NS 1,000 ML IV SCH ×2 (05:40→19:23)
[2017-05-03] MEDS ORDERED: INSULIN ASPART 100unit/ml INJECTION SQ SCH ×2 (08:00→12:00)
--- NOTE | 2017-05-03 08:22 | CT Scan Report ---
Indication: infiltrate PROCEDURE: CT chest wo con: Encounter: Initial Comparison: Chest x-ray dated May 02, 2017 Technique: Axial CT images were performed through the chest without intravenous contrast. Coronal and sagittal two-dimensional reformats. Automated Exposure Control and Iterative Reconstruction dose reducing techniques were utilized. Findings: Right pleural effusion with consolidation and groundglass opacity in the right upper and lower lobes. Small left pleural effusion with compressive atelectasis. No pneumothorax. The central airways are patent. No axillary or mediastinal adenopathy. Heart size is mildly enlarged. The upper abdomen shows postoperative changes from cholecystectomy and pneumobilia. Granulomatous disease in the spleen. Bone windows show no acute findings. Impression: 1. Right-sided airspace consolidation with bilateral pleural effusions could be due to pneumonia or aspiration. 2. Pneumobilia presumably related to prior biliary intervention. There is a preliminary report by [facility]. .
[2017-05-03] MEDS: ATENOLOL 50 MG TABLET PO SCH (08:48)
[2017-05-03] MEDS: ASPIRIN *EC* 81 MG TABLET PO SCH (08:48)
[2017-05-03] MEDS: OMEGA-3 ACID ESTERS 1 GM CAPSULE PO SCH ×2 (08:50→21:16)
[2017-05-03] MEDS: TICAGRELOR 90 MG TABLET PO SCH ×2 (08:51→21:16)
[2017-05-03] MEDS: CALCITRIOL 0.25 MCG CAPSULE PO SCH (08:51)
--- NOTE | 2017-05-03 09:03 | Cardiology Progress Note ---
<Leslie Zapien - Last Filed: 05/04/17 09:17> Subjective Principal diagnosis: NSTEMI Interval history: Ed is seen in follow up following NSTEMI and left heart cath yesterday. He reports pain throughout his heart cath and requests more sedation for repeat cath later today. He reports some chest pain in the night but now is pain free. He denies dyspnea. Exam Vital signs: Temperature 97.5 F 05/03/17 07:32 Pulse Rate 68 05/03/17 07:30 Respiratory Rate 65 H 05/03/17 07:30 Blood Pressure 148/77 H 05/03/17 07:01 Pulse Oximetry 96 05/03/17 07:30 - Constitutional no acute distress, well nourished, cooperative - Routine HEENT Exam Head: Present: normocephalic ENT: Present: mucous membranes moist - Routine Neck Exam Absent: JVD, carotid bruit - Routine Chest/Breast/Axilla Exam Chest wall: Absent: tenderness - Routine Respiratory Exam Present: CTA bilaterally, diminished air movement. Absent: rales, wheezes - Routine Cardiovascular Exam Present: RRR, no murmur, bradycardia - Routine Abdominal Exam Present: soft, normoactive bowel sounds - Routine Extremities Exam Present: no edema - Routine Skin Exam Present: intact, dry, warm - Routine Neurological Exam Present: alert, oriented X3 - Routine Psychiatric Exam Present: normal affect, normal thought process Results 05/03/17 04:25 05/03/17 04:25 Cardiac Enzymes 05/02/17 05/02/17 05/02/17 Range/Units 15:03 18:53 22:52 AST 23 (17-59) U/L Troponin I 3.110 H 3.090 H 6.050 H D (0-0.12) ng/ml 05/03/17 Range/Units 04:25 AST 103 H D (17-59) U/L Troponin I 45.300 H D (0-0.12) ng/ml Lipids 05/03/17 Range/Units 04:25 Triglycerides 115 (40-160) MG/DL Cholesterol 147 (132-199) MG/DL HDL Cholesterol 24 L (40-60) MG/DL Cholesterol/HDL Ratio 6.1 H (0-5.0) RATIO CBC 05/02/17 05/03/17 Range/Units 18:47 04:25 WBC 13.3 H 13.5 H (4.5-11.0) T/MM3 RBC 3.69 L 3.67 L (4.50-5.90) M/MM3 Hgb 10.4 L 10.2 L (13.5-17.5) GM/DL Hct 32.7 L 32.3 L (41-53) % Plt Count 342 360 (130-400) T/MM3 Neut # (Auto) 9.5 H 10.2 H (1.8-7.7) T/MM3 Lymph # (Auto) 2.5 1.8 (1-4.8) T/MM3 [place] # (Auto) 1.1 H 1.3 H (0-0.8) T/MM3 Eos # (Auto) 0.1 0.0 (0-0.5) T/MM3 Baso # (Auto) 0.0 0.1 (0-0.2) T/MM3 Comprehensive Metabolic Panel 05/02/17 05/03/17 Range/Units 18:53 04:25 Sodium 141 142 (134-144) MEQ/L Potassium 4.8 4.3 (3.6-5) MEQ/L Chloride 107 106 (98-107) MEQ/L Carbon Dioxide 20 L 22 (22-30) MEQ/L BUN 46.0 H 49.0 H (9-20) MG/DL Creatinine 2.4 H 2.5 H (0.8-1.5) MG/DL Glucose 202 H 139 H (75-110) MG/DL Calcium 8.8 8.5 (8.4-10.2) MG/DL AST 23 103 H D (17-59) U/L ALT 39 42 (21-72) U/L Alkaline Phosphatase 168 H 146 H (38-126) U/L Total Protein 7.4 6.9 (6.3-8.2) G/DL Albumin 3.2 L 3.2 L (3.5-5.0) G/DL Intake and Output 05/02/17 05/03/17 05/03/17 22:59 06:59 14:59 Intake Total 300 / 300 184.578 / 184.578 Output Total 250 / 250 850 / 850 Balance 50 / 50 -665.422 / -665.422 Intake: IV 184.578 / 184.578 Eptifibatide 75 mg In 100 84.578 / 84.578 ml @ 1 MCG/KG/MIN 6.686 mls/hr IV .[id number] [facility] Rx #:[id number] Piperacillin/Tazobactam 2 100 / 100 .25 gm In Ns 100 ml @ 200 mls/hr IV Q6H [facility] Rx#: [id number] Oral 300 / 300 Output: Urine 250 / 250 850 / 850 Other: Urine Appearance Cloudy Urine Color Yellow Urine Odor Strong # Voids 1 Weight 181 lb 14.102 oz Patient Weight 05/04/17 06:59 Weight 181 lb 14.102 oz - Imaging and Cardiology Imaging & Cardiology Narrative: Date of Exam: 05/02/17 Type of Exam(s): CA heart cath LT DATE OF PROCEDURE May 02, 2017 The patient is an 86-year-old gentleman with history of coronary artery disease who was admitted with shortness of breath with elevated troponin and abnormal EKG suggestive of ischemia. He was referred for further evaluation by cardiac catheterization and possible intervention. Informed consent was obtained after explaining the procedure and the potential risks to the patient who agreed to proceed with the procedure. PROCEDURE 1. Left heart catheterization. 2. Coronary angiography. 3. Selective ORDONEZ angiography. 4. Bypass angiography. 5. Thrombectomy and PTCA of the vein graft to RCA. 6. Right femoral angiography to visualize the vessel for closure device. 7. Successful Mynx deployment for hemostasis. TECHNIQUE He was prepped and draped in the usual sterile techniques. Conscious sedation was performed using Versed and fentanyl. 1% lidocaine was used for local anesthesia. Using modified Seldinger technique, arterial access was obtained into the right femoral artery with placement of a 6-Chinese arterial sheath. The patient was on heparin drip and additional 3000 units of heparin were administered. CORONARY ANGIOGRAPHY Left main was free of significant lesions. Left anterior descending artery was occluded. Ramus intermedius had 99% stenosis with a small-caliber vessel of about 1.5 to 2 mm. Left circumflex artery was occluded. Right coronary artery was occluded. ORDONEZ to LAD was patent with excellent flow. A vein graft to obtuse marginal was occluded. A vein graft to right coronary was occluded with a large quantity of thrombus. This appeared to be the culprit vessel. After reviewing the images we decided to proceed with intervention on the graft to the RCA. A 6-Chinese multipurpose guide was advanced to the ostium of the graft. A [place] wire was used to cross the lesion into distal graft. A 3.0 by 25 balloon was delivered and multiple overlapping inflations were performed. The next angiogram showed no reconstitution of the blood flow. Next, we used an aspiration catheter which was advanced and multiple aspirations were performed. Through the aspiration catheter we were able to administer intracoronary adenosine. The next angiogram showed reconstitution of the blood flow into distal PDA and posterolateral artery which were small vessels with a large quantity of thrombus distally extending from the graft to the proximal part of the [place] vessel. At this point the case was terminated. Patient tolerated the procedure well with no complications. He was started on Integrilin to improve the thrombus burden. Right femoral angiography showed patent common femoral, proximal SFA and profunda and therefore Mynx was used for hemostasis. IMPRESSION 1. Coronary artery disease as described above. 2. Occlusion of the graft to the RCA which appears to be the culprit vessel. 3. Successful recanalization and thrombectomy and PTCA of the graft to the RCA. 4. Successful Mynx deployment for hemostasis. PLAN Will continue Integrilin to improve the thrombus burden and will bring him back in a day or two to repeat angiography and possibly proceed with stent deployment. 05/03/17 09:03 - EKG Interpretation EKG: sinus rhythm (ST T wave changes suggestive of ischemia) EKG shows: bradycardia Assessment and Plan - Assessment and Plan (1) NSTEMI (non-ST elevated myocardial infarction) Current visit: Yes Status: Acute Left heart cath revealed vein graft to RCA occluded. Ballooned and Integrilin drip overnight. Continue Aspirin and Brilinta for dual anti-platelet therapy, continue home BB Plan repeat cath with possible stent placement this after noon. 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 BROOKS last 2 weeks. - Troponin elevated to 3.300, repeat 3.110 - EKG with ST depression in precordial leads, ST elevation in lead III. 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 Hill, we appreciate your assistance CKD (chronic kidney disease) BUN 50/ CR 2.5 COPD (chronic obstructive pulmonary disease) Exacerbation versus pneumonia. Consult Dr. Hill, thank you for your assistance. 05/03/17 Left heart cath revealed vein graft to RCA occluded. Ballooned and Integrilin drip overnight. Continue Aspirin and Brilinta for dual anti-platelet therapy, continue home BB Plan repeat cath with possible stent placement this afternoon. trend serial troponin Bumex 2mg IV Q6h for diuresis Change simvastatin to Atorvastatin 80mg daily Hospital Course Summary Disclaimer: The visit summary below is not to be considered part of the above Progress Note. <Jayjay Back - Last Filed: 05/05/17 11:59> Exam Vital signs: Temperature 98.7 F 05/05/17 04:30 Pulse Rate 72 05/05/17 08:00 Respiratory Rate 32 H 05/05/17 11:15 Blood Pressure 135/72 05/05/17 07:00 Pulse Oximetry 94 05/05/17 11:15 Results 05/05/17 04:30 05/05/17 04:30 Cardiac Enzymes 05/05/17 Range/Units 04:30 AST 61 H (17-59) U/L CBC 05/05/17 Range/Units 04:30 WBC 16.5 H (4.5-11.0) T/MM3 RBC 3.39 L (4.50-5.90) M/MM3 Hgb 9.5 L (13.5-17.5) GM/DL Hct 29.9 L (41-53) % Plt Count 391 (130-400) T/MM3 Comprehensive Metabolic Panel 05/05/17 Range/Units 04:30 Sodium 140 (134-144) MEQ/L Potassium 3.5 L (3.6-5) MEQ/L Chloride 103 (98-107) MEQ/L Carbon Dioxide 22 (22-30) MEQ/L BUN 60.0 H* (9-20) MG/DL Creatinine 3.9 H D (0.8-1.5) MG/DL Glucose 202 H (75-110) MG/DL Calcium 8.5 (8.4-10.2) MG/DL Unconjugated Bilirubin 0.20 (0.00-1.1) MG/DL AST 61 H (17-59) U/L ALT 43 (21-72) U/L Alkaline Phosphatase 108 D (38-126) U/L Total Protein 7.0 (6.3-8.2) G/DL Albumin 3.2 L (3.5-5.0) G/DL Intake and Output 05/04/17 05/05/17 05/05/17 22:59 06:59 14:59 Intake Total 100 / 100 340 / 340 240 / 240 Output Total 125 / 125 Balance -25 / -25 340 / 340 240 / 240 Intake: IV 100 / 100 100 / 100 Piperacillin/Tazobactam 2 100 / 100 100 / 100 .25 gm In Ns 100 ml @ 200 mls/hr IV Q8H [facility] Rx#: [id number] Oral 240 / 240 240 / 240 Output: Urine 125 / 125 Other: Urine Appearance Clear Urine Color Dark Yellow Size of Bowel Movement Moderate # Voids 1 Weight 83.1 kg Patient Weight 05/06/17 06:59 Weight 83.1 kg Assessment and Plan - Assessment and Plan (1) NSTEMI (non-ST elevated myocardial infarction) Current visit: Yes Status: Acute (2) 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 I am involved in the formulation of the patient's plan of care. Hospital Course Summary Disclaimer: The visit summary below is not to be considered part of the above Progress Note.
[2017-05-03] MEDS: NITROGLYCERIN 0.4 MG SUBLINGUAL TABLET SL PRN ×2 (09:23→10:37)
--- NOTE | 2017-05-03 10:33 | Echocardiogram ---
DATE OF PROCEDURE May 02, 2017 This is a two-dimensional echo with spectral Doppler, color-flow and M-mode. It was obtained in a patient with myocardial infarction. Left atrium is dilated. Left ventricle end-diastolic dimension is normal. Left ventricular wall thickness is normal. [place] and inferior dillard are hypo-to- akinetic with ejection fraction of about 40%. Right atrium is dilated. Right ventricle is normal. Aortic root dimension is normal. Mitral valve annulus is calcified. Mitral valve leaflets are normal with moderate mitral regurgitation. Aortic valve shows fibrocalcific changes with no stenosis. Trace of aortic insufficiency is present. Tricuspid valve shows moderate tricuspid regurgitation with moderate pulmonary hypertension with estimated pulmonary artery systolic pressure of 53. Pulmonary valve shows mild pulmonary insufficiency. There is no pericardial effusion. IMPRESSION 1. Wall motion abnormalities as described above with ejection fraction of about 40%. 2. Biatrial dilation. 3. Mitral annulus calcification with moderate mitral regurgitation. 4. Aortic sclerosis with trace of aortic insufficiency. 5. Moderate tricuspid regurgitation with moderate pulmonary hypertension with estimated pulmonary artery systolic pressure of 53. 6. Mild pulmonary insufficiency. MTDD
[2017-05-03] MEDS ORDERED: NITROGLYCERIN DRIP 50 MG/250 ML BAG IV PRN (11:03)
[2017-05-03] MEDS: INSULIN ASPART 100unit/ml INJECTION SQ PRN (11:34)
[2017-05-03] MEDS: ALBUTEROL/IPRATROPIUM 2.5mg-0.5mg/3ml NEB AEROSOL PRN (15:28)
[2017-05-03] MEDS ORDERED: LIDOCAINE 1% (10mg/ml) 30ml SDV INJ ONE (16:52)
[2017-05-03] MEDS ORDERED: HEPARIN 1,000 UNITS/500 ML PREMIX (*CVL ONLY*) IV ONE (16:52)
[2017-05-03] MEDS ORDERED: FentaNYL 100 MCG/2 ML INJECTION ONE (16:53)
[2017-05-03] MEDS ORDERED: MIDAZOLAM 2mg/2ml INJECTION ONE (16:53)
[2017-05-03] MEDS ORDERED: HEPARIN 1,000unit/ml INJECTION 10ml ONE (17:43)
[2017-05-03] MEDS ORDERED: EPTIFIBATIDE 75 MG/100 ML VIAL IV ONE (17:55)
[2017-05-03] MEDS ORDERED: PROMETHAZINE 25 MG INJECTION IVP PRN (19:18)
[2017-05-03] MEDS ORDERED: BISACODYL 10 MG SUPPOSITORY RECTALLY PRN (19:18)
[2017-05-03] MEDS ORDERED: LORazepam 0.5 MG TABLET PO PRN (19:18)
[2017-05-03] MEDS ORDERED: Bisacodyl EC TAB 5 MG TABLET PO PRN (19:18)
[2017-05-03] MEDS ORDERED: ONDANSETRON 4 MG/2 ML INJECTION IVP PRN (19:18)
[2017-05-03] MEDS ORDERED: METOCLOPRAMIDE 10mg/2ml INJECTION IVP PRN (19:18)
[2017-05-03] MEDS ORDERED: HYDROCODONE/APAP 7.5 MG/325 MG TABLET PO PRN (19:18)
[2017-05-03] MEDS ORDERED: MAG-AL + SIM ORAL LIQUID 30ml PO PRN (19:18)
[2017-05-03] MEDS ORDERED: ATROPINE 1 MG/ML INJECTION IVP PRN (19:18)
[2017-05-03] MEDS ORDERED: MORPHINE SULFATE 4mg INJECTION IVP PRN ×2 (19:18)
[2017-05-03] MEDS ORDERED: NITROGLYCERIN 0.4 MG SUBLINGUAL TABLET SL PRN (19:18)
[2017-05-03] MEDS: ATORVASTATIN 40 MG TABLET PO SCH (21:16)
[2017-05-03] MEDS ORDERED: VANCOMYCIN - PHARMACY CONSULT MC ONE (22:18)
--- NOTE | 2017-05-03 22:31 | Progress Note ---
- Date 05/03/17 Subjective: patient feels like he's doing better as I speak with him today despite the fact troponin rising after cardiac cath yesterday. denies chest pain although it still appears from notes he's had a few minor episodes. no SOA at rest. denies headaches, stroke symptoms, focal neurologic deficits, dizziness, syncope near syncope. he hasn't really had an opportunity to ambulate much of course. occasional oozing at cath site and cardiology is following this. he's denying pain there at this time. no numbness/weakness/tingling down legs or arms. no falls, trauma, injuries. hard to tell if exertional tolerance has changed much. no altered mental status/alertness/sensorum symptoms. no confusion. currently resting well as I see him. he arouses easily. no orthopnea PND, new edema. on 6 to 8 liters high flow nasal cannula but seems to drop a bit when sleeping. no skin changes or new rashes otherwise. no palpitations. no events called on telemetry to us. no acute issues overnight or throughout the day today. cough improved he says. no sputum production. no hemoptysis. no abdominal pain, GERD symptoms, nausea, vomiting, diarrhea. no bloody/black stools. no BM since admission but denies constipation. no hematemesis, coffee ground emesis. no dysuria, hematuria. urinating more secondary to the bumex but otherwise no urinary changes. nursing notes no acute issues. no new issues otherwise at this time. Objective Vital signs: Temperature 97.5 F 05/03/17 07:32 Pulse Rate 62 05/03/17 19:15 Respiratory Rate 35 H 05/03/17 19:15 Blood Pressure 136/64 05/03/17 19:15 Pulse Oximetry 92 05/03/17 19:15 Rhythm: Normal Sinus Rhythm - Constitutional Present: no acute distress, cooperative. Absent: diaphoretic, disheveled, combative, agitated, somnolent, obtunded - Routine HEENT Exam Head: Present: normocephalic, atraumatic ENT: Present: mucous membranes moist - Routine Respiratory Exam Present: dyspnea (still somem with exertion.), CTA bilaterally. Absent: accessory muscle use, patient mechanically ventilated, prolonged expiratory phase, rales, respiratory distress, rhonchi, stridor, wheezes, crackles, distant breath sounds Comments: RR's in mid-20's as I'm speaking with patient. there is discordance with this and the reading on monitor which reads in 40's at this time but clinically this patient is not tachypneic to me right now. - Routine Cardiovascular Exam Comments: cardiac exam unchanged from previous. no new edema. pulses normal and clinically well perfused in all 4 extremities b/l at this time. legs symmetrical and compartments soft b/l in LE's at this time. - Routine Abdominal Exam Present: soft (X4.), normoactive bowel sounds (X4.), non distended (X4.), non tender (X4.). Absent: tenderness (X4.), distended (X4.), rebound, guarding, firm, rigid, organomegaly Comments: no abdominal distension, ascites, jaundice. - Routine Exam Comments: no tenderness over bladder area. - Routine Extremities Exam Present: non tender (X4 extremities.). Absent: cyanosis, joint swelling, pallor , extremity cold to touch - Routine Musculoskeletal Exam Musculoskeletal: Present: no joint swelling, no tenderness, no erythema, moving extremities well. Absent: joint erythera, joint swelling - Routine Skin Exam Present: intact Comments: no new skin changes or rashes to uncovered areas. - Routine Neurological Exam Present: alert, oriented X3. Absent: altered mental status no changes neurologically from previous. no photophobia or clinical evidence of meningitis at this time. affect and cognition at patient's usual baseline at this time. - Routine Lymphatic Exam Lymphatic: Absent: lymphedema - Routine Psychiatric Exam Present: normal affect, normal thought process, cooperative. Absent: suicidal ideation, homicidal ideation, auditory hallucinations, visual hallucinations, tactile hallucinations, depressed, anxious, agitated, paranoid, manic Comments: see the above. Results - Labs CBC & Chem 7: 05/03/17 04:25 05/03/17 04:25 Microbiology Results: Microbiology 05/03/17 09:55 Sputum, Expectorated Gram Stain - Final 05/03/17 09:55 Sputum, Expectorated Sputum Culture - Preliminary Culture Initiated - Results Pending Assessment and Plan Assessment and Plan: acute NSTEMI s/p ballooning to graft to RCA. significant thrombosis still noted. on integrelin. hospital acquired pneumonia and severe sepsis (patient hospitalized a few months ago for gallbladder issues in [place]) gram positive cocci in clusters in sputum cx. see above for other culture results. acute hypoxic respiratory failure secondary to the above T2DM chronic multifactorial anemia leukocytosis secondary to the above. HTN chronic kidney disease hyperlipidemia hypothyroid recent episodes of hypoglycemia -vital signs, telemetry, oxygen, cardiac diet, continuous pulse oximetry and other admission orders per cardiology. cath site orders and monitoring per cardiology. this exam was deferred to them today. -cbc's with stable leukocyosis and anemia. lipid panel with low HDL and otherwise unchanged from previous. cmp with generally stable creatinine at about 2.5 and sugars in 100's generally. GLUBS with sugars in 100's generally. CK normal. troponin's trending as high as 50's now post-cath. mg, phos ok. lactic acids trended down to normal. sputum gram stain with significant amounts of gram positive cocci in clusters as well as that which is noted above. respiratory PCR unremarkable. tsh and procalcitonin unremarkable. CT chest from yesterday notable for likely pneumonia and otherwise unremarkable. echocardiogram with EF of 40% and moderate pulmonary HTN and some notable moderate tricuspid regurgitation as well as some wall motion abnormalities. EKG's repeated by cardiology notable for the ST depression in precordials resolving but previous T wave inversions in inferior and precordial leads remain. otherwise EKG's unchanged from previous in general. see previous notes for other testing and results from this stay. -sputum culture, blood cultures X2, mycoplasma serologies, urine legionella , urine strep pneumonia all still pending. -cbc, bmp, mg, EKG in AM per cardiology. pharmacy consulted for vancomycin. -continue integralin, brilinta, ASA, synthroid, statin, beta-froylan, calcitriol, procardia, GLUBS, novolog s/s, hypoglycemia protocol, zosyn IV (day 2), bumex, tylenol prn, dulcolax prn, morphine IV prn, zofran prn, atropine prn, fish oil, nitroglycerin for now. stat IV vancomycin with pharmacy to dose as there area gram positive cocci in clusters in sputum culture. will have to hold on floroquinolone for now given renal function and other meds (gentamicin, etc.) we could use are not a good idea given renal function either. if patient deteriorates we may have to use but right now the risk isn't worth the benefit. continue current duonebs prn. add tessalxiomara perles scheduled. cardiology still continuing low flow IV normal saline. -d/c norco prn as patient not using it. holding short acting insulin for now as sugars look ok on current sliding scale. continue holding home lantus for now. -cardiology primary. cardiac rehab consulted. infectious disease, Dr. Yancey consulted and spoken with. inpatient rehab consulted. speech therapy consulted as noted previously as well. all other chronic medical conditions stable and no changes to plan of care at this time. ppx -intergrelin should serve as DVT ppx. will start SCD's as well. -PO diet as above for GI ppx. will start ppi IV as patient not eating much and is in ICU. is also on anticoagulants as noted above. -DNR/DNI. -dispo continue ICU care for now. DVT Prophylaxis: SCD's, other (integralin. ) GI Prophylaxis: Protonix, other (continue PO diet.) Resuscitation Status: Do Not Resuscitate (DNR/DNI.) - Time spent with patient Time with patient PN: 25 minutes Sepsis Assessment - Evaluation Possible source: pulmonary Confirmed Suspected Infection: Yes SIRS Criteria: WBC > or equal to 12,000 Severe Sepsis: cardiac dysfunction, SpO2 <90% or ventilated, Creatinine >2.0 mg/ dL
[2017-05-04] MEDS: PIPERACILLIN/TAZOBACTAM 2.25 GM in NS 100 ML IV SCH ×4 (01:49→19:16)
[2017-05-04] MEDS: INSULIN ASPART 100unit/ml INJECTION SQ PRN ×3 (06:24→21:12)
[2017-05-04] MEDS: LEVOTHYROXINE 50 MCG TABLET PO SCH (06:26)
--- NOTE | 2017-05-04 07:52 | Cardiology Report ---
DATE OF PROCEDURE May 03, 2017 The patient is an 86-year-old gentleman who was admitted with VT and a cardiac catheterization was performed yesterday which showed occlusion of the vein graft to RCA and it was intervened with thrombectomy PTCA. There was a large quantity of thrombus present in the graft and therefore he was started on Integrilin yesterday and was brought back in for evaluation and possible further intervention. Informed consent was obtained after explaining the procedure and the potential risks to the patient including risk of renal failure. The patient and family agreed to proceed with the procedure. PROCEDURE 1. PTCA and stent of the vein graft to RCA using 3.0 x 26 and 3.5 x 18 drug- eluting Resolute [place] stents. 2. Right femoral angiography to visualize the vessel for Mynx deployment. 3. Successful Mynx deployment for hemostasis. TECHNIQUE The patient was prepped and draped in the usual sterile techniques. Conscious sedation was performed using Versed and fentanyl. 1% lidocaine was used for local anesthesia. Using modified Seldinger technique, arterial access was obtained into the right femoral artery with placement of a 6-Setswana arterial sheath. The patient was on Integrilin and 6000 units of heparin was administered. He is already on dual antiplatelet therapy including Brilinta and aspirin. A 6-Setswana JR4 guide was advanced to the ostium of the graft to the RCA. Angiography of the graft showed subtotal occlusion distally with large quantity of thrombus present. Next, we used a 2.5 x 15 balloon which was delivered to the lesion site and inflated up to 15 atmospheres. Next, the balloon was exchanged for a 3.0 x 26 drug-eluting Resolute [place] stent which was delivered to the most distal part of the lesion where it was deployed by inflating the balloon to 16 atmospheres. Next, we used a 3.5 x 18 drug-eluting Resolute [place] stent which was delivered proximal to the previous stent and deployed by inflating the balloon to 18 atmospheres. Next, angiogram showed excellent results with no residual stenosis. Right femoral angiography showed patent common femoral, proximal SFA and profunda and therefore Mynx was used for hemostasis. IMPRESSION 1. Successful PTCA and stent of the vein graft to RCA using 3.0 x 26 and 3.5 x 18 drug-eluting [place] stents. 2. Successful Mynx deployment for hemostasis. PLAN Will keep him on dual antiplatelet therapy at least for year and continue Integrilin for 18 hours. MTDD
[2017-05-04] MEDS: TICAGRELOR 90 MG TABLET PO SCH ×2 (08:52→21:01)
[2017-05-04] MEDS: OMEGA-3 ACID ESTERS 1 GM CAPSULE PO SCH ×2 (08:53→21:00)
[2017-05-04] MEDS: ATENOLOL 50 MG TABLET PO SCH (08:53)
[2017-05-04] MEDS: PANTOPRAZOLE 40 MG INJECTION IVP SCH (08:59)
[2017-05-04] MEDS: ASPIRIN *EC* 81 MG TABLET PO SCH (08:59)
[2017-05-04] MEDS ORDERED: PNEUMOCOCCAL 13 VACCINE 0.5ml INJECTION IM ONE (09:00)
--- NOTE | 2017-05-04 09:23 | Infectious Disease Consult ---
Infectious Disease Consult Date of Consultation: 05/04/17 Requesting Physician: Willy Hill Reason for Consultation: antibiotic recs History of Present Illness: Mr. Roque is an 86 y/o man with history of CAD with CABG, HTN, HLD, DM type II , CKD and COPD. He was admitted on 05/02/17 with dyspnea and cough and not feeling well for about 2 weeks. He was found to be hypoxic, have a positive troponin and ST depression on EKG. He was taken urgently to the catheterization laboratory technician, and underwent thrombectomy and PTCA of the vein graft to RCA. He was placed on integrilin, and returned to the catheterization laboratory technician yesterday and underwent PTCA and stent of the vein graft to RCA using 3.0 x 26 and 3.5 x 18 drug-eluting Resolute [place] stents. His procalcitonin was 0.5 on admission. He's been on 6L of O2 since admission. CT chest on 05/02 showed RUL and RLL consolidations. He was started on Zosyn for pneumonia. Blood cultures are NGTD. Urine legionella antigen is negative. Sputum culture from 05/03 had a polymicrobial gram stain, including GPC in clusters, but is growing heavy growth of GNRs today. There were some GNRs on the gram stain also. He was given a dose of Vancomycin last night (1.5 gm). His creatinine on admission was 2.5 and now it's 2.9. He has also been receiving bumex. I've been asked to help with his antibiotics. He reports having cough, mostly non-productive, dyspnea, chest discomfort and some chills for the past 2 weeks. His chills and chest pain are better, but he is still short of breath and wheezing. He does not have a dumas in. Medications Home Medications Medication Instructions Recorded Confirmed Type Atenolol 50 mg PO DAILY #0 06/18/09 05/02/17 History Simvastatin [Zocor] 80 mg PO HS #0 06/18/09 05/02/17 History Aspirin [Aspirin EC] 81 mg PO DAILY 04/27/17 05/02/17 History Calcitriol [Rocaltrol] 0.25 mcg PO DAILY 04/27/17 05/02/17 History Insulin Aspart [Novolog Flexpen] 8 unit SQ WB 04/27/17 05/02/17 History Insulin Aspart [Novolog Flexpen] 10 unit SQ WS 04/27/17 05/02/17 History Insulin Aspart [Novolog Flexpen] 14 unit SQ WL 04/27/17 05/02/17 History Insulin Glargine,Hum.rec.anlog 60 unit SQ HS 04/27/17 05/02/17 History [Lantus Solostar] Levothyroxine Sodium 50 mcg PO DAILY 04/27/17 05/02/17 History NIFEdipine [Nifedipine ER] 90 mg PO DAILY 04/27/17 05/02/17 History [place]-3S/Dha/Epa/Fish Oil [Fish 300 mg PO BID 04/27/17 05/02/17 History Oil [place]-3 Softgel] Aspirin [Aspirin EC] 243 mg PO O 05/02/17 05/02/17 History D-Methorphan/PE/Acetaminophen 2 tab PO BID PRN 05/02/17 05/02/17 History [Tylenol Cold Multi-Symp Caplet] Allergies Allergy/AdvReac Type Severity Reaction Status Date / Time No Known Drug Allergies Allergy Unknown Verified 05/02/17 12:41 [facility] Medical History NSTEMI (non-ST elevated myocardial infarction) (Acute Medical) Myocardial infarction acute (Acute Medical) Myocardial infarction complications (Acute Medical) 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 cholecystectomy. ERCP and removal of gallstone from common bile duct. possible prostate surgery in past Family History: father at age 97 daughters alive and healthy mother . had dementia - Social History Smoking status: Former smoker Current occupational status: retired Current residence: [facility] Review of Systems All systems PM: 10-point ROS was reviewed, no additional remarkable complaints except - Constitutional Constitutional: Present: chills, night sweats. Absent: fever(s), headache(s) - EENMT Eyes: Absent: change in vision Mouth/Throat: Absent: sore throat - Cardiovascular Cardiovascular: Present: chest pain, dyspnea on exertion - Respiratory Respiratory: Present: cough, dyspnea, wheezing - Gastrointestinal Gastrointestinal: Absent: diarrhea, nausea, vomiting - Genitourinary Genitourinary: Absent: dysuria - Musculoskeletal Musculoskeletal: Present: myalgias ("all over") - Neurological Neurological: Absent: headache(s) Exam Vital Signs: Temperature 98.2 F 05/04/17 00:00 Pulse Rate 59 L 05/04/17 05:00 Respiratory Rate 33 H 05/04/17 04:00 Blood Pressure 122/69 05/04/17 04:00 Pulse Oximetry 91 05/04/17 04:10 - Constitutional Present: no acute distress, well nourished, well developed - Routine HEENT Exam Head: Present: normocephalic, atraumatic Eye: Present: EOMI, PERRL ENT: Present: mucous membranes moist, oropharynx clear Comments: dentures in place - Routine Neck Exam Present: supple - Routine Respiratory Exam Present: dyspnea, decreased breath sounds, wheezes (bilaterally anteriorly), distant breath sounds Comments: On 6L O2 - Routine Cardiovascular Exam Present: RRR - Routine Abdominal Exam Present: soft, normoactive bowel sounds, non tender. Absent: distended, rebound , guarding - Routine Extremities Exam Absent: cyanosis, clubbing, edema - Routine Skin Exam Present: intact. Absent: rash - Routine Neurological Exam Present: alert, oriented X3, CN II-XII intact. Absent: motor deficit - Routine Psychiatric Exam Present: normal affect, normal thought process Results - Labs CBC & Chem 7: 05/04/17 05:02 05/04/17 05:02 Microbiology Results: Microbiology 05/03/17 09:55 Sputum, Expectorated Gram Stain - Final 05/03/17 09:55 Sputum, Expectorated Sputum Culture - Preliminary Gram Negative Tanner Blood cultures 05/02: NGTD - Impressions PROCEDURE: XR chest 1V: Encounter: Initial Comparison: Chest CT dated May 02, 2017 Findings: Continued consolidation in the right lower lobe with small pleural effusions. Mild airspace opacity in the right upper lobe. No pneumothorax. Cardiac silhouette is mildly enlarged. Prior sternotomy. Pulmonary vascularity is mildly prominent. Impression: Right lower lobe pneumonia with mild pulmonary edema. . Impression: Acute NSTEMI s/p ballooning (05/02) followed by stenting (05/03) to graft to RCA. Hospital acquired pneumonia (recent hospitalization in [place]). Sputum culture with heavy growth GNRs. Acute hypoxic respiratory failure secondary to the above, +/- volume overload. T2DM, IR Leukocytosis HANSA on chronic kidney disease (baseline creatinine around 2) hyperlipidemia hypothyroidism HTN Recommendation: Recommend continuing with Zosyn alone to cover the GNR in sputum culture. His creatinine and volume status will need to be monitored closely. Recommend a 7 day course of antibiotics for pneumonia.
--- NOTE | 2017-05-04 09:24 | Cardiology Progress Note ---
<Leslie Zapien - Last Filed: 05/04/17 09:17> Subjective Principal diagnosis: NSTEMI Interval history: Ed is seen in follow up following NSTEMI and left heart cath 05/02/17 and . He has some conversational dyspnea but denies chest pain. Dressing to right groin removed, site is dry. Exam Vital signs: Temperature 98.2 F 05/04/17 00:00 Pulse Rate 59 L 05/04/17 05:00 Respiratory Rate 33 H 05/04/17 04:00 Blood Pressure 122/69 05/04/17 04:00 Pulse Oximetry 91 05/04/17 04:10 - Constitutional mild distress, well nourished, cooperative - Routine HEENT Exam Head: Present: normocephalic ENT: Present: mucous membranes moist - Routine Neck Exam Absent: JVD, carotid bruit - Routine Chest/Breast/Axilla Exam Chest wall: Absent: tenderness - Routine Respiratory Exam Present: accessory muscle use, dyspnea, CTA bilaterally, diminished air movement (left base). Absent: rales, wheezes - Routine Cardiovascular Exam Present: RRR, no murmur - Routine Abdominal Exam Present: soft, normoactive bowel sounds - Routine Skin Exam Present: intact, dry, warm - Routine Neurological Exam Present: alert, oriented X3 - Routine Psychiatric Exam Present: normal affect, normal thought process - Additional findings Additional findings: Acetaminophen (Tylenol) 650 mg PO Q6H PRN PRN Reason: Pain Hydrocodone Bitart/Acetaminophen ([place] 7.5/325) 1 - 2 tab PO Q5H PRN PRN Reason: Pain Al Hydroxide/Mg Hydroxide (Maalox Plus) 30 ml PO Q3H PRN PRN Reason: Indigestion Albuterol/Ipratropium (Duoneb) 3 ml AEROSOL RTQID PRN Last Admin: 05/03/17 15:28 Dose: 3 ml Aspirin (Ecotrin) 81 mg PO DAILY [facility] Last Admin: 05/04/17 08:59 Dose: 81 mg Atorvastatin Calcium (Lipitor) 80 mg PO HS [facility] Last Admin: 05/03/17 21:16 Dose: 80 mg Atropine Sulfate (Atropine) 0.5 mg IVP Q5M PRN PRN Reason: Bradycardia Benzonatate (Tessalon Perles) 100 mg PO TID [facility] Bisacodyl (Dulcolax) 5 - 10 mg PO DAILY PRN PRN Reason: Constipation Bisacodyl (Dulcolax) 10 mg RECTALLY DAILY PRN PRN Reason: Constipation Bumetanide (Bumex Inj) 2 mg IVP BID [facility] Calcitriol (Rocaltrol) 0.25 mcg PO DAILY [facility] Last Admin: 05/03/17 08:51 Dose: 0.25 mcg Dextrose (D50%W) 10 - 20 ml IVP PRN PRN PRN Reason: Hypoglycemia Glucose (Glutose 15) 37.5 gm PO PRN PRN PRN Reason: Hypoglycemia Eptifibatide (Integrilin) 75 mg in 100 mls @ 6.686 mls/hr IV .[id number] [facility] PRN Reason: 1 MCG/KG/MIN Stop: 05/04/17 12:00 Last Infusion: 05/04/17 07:00 Dose: Infused Piperacillin Sod/Tazobactam (Sod 2.25 gm/ Sodium Chloride) 100 mls @ 200 mls/ hr IV Q6H [facility] Last Infusion: 05/04/17 07:00 Dose: Infused Nitroglycerin (Nitroglycerin Drip) 50 mg in 250 mls @ 1.5 mls/hr IV .Q24H PRN; 5 MCG/MIN PRN Reason: Protocol Last Titration: 05/03/17 17:00 Dose: Infused Insulin Aspart (Novolog) 0 unit SQ SS PRN; Protocol PRN Reason: Hyperglycemia Last Admin: 05/04/17 06:24 Dose: 1 unit Levothyroxine Sodium (Synthroid) 50 mcg PO ACB [facility] Last Admin: 05/04/17 06:26 Dose: 50 mcg Lorazepam (Ativan) 0.5 - 1 mg PO Q4H PRN PRN Reason: Anxiety Lorazepam (Ativan Inj) 0.5 - 1 mg IVP Q4H PRN PRN Reason: Anxiety Magnesium Hydroxide (Mom) 30 ml PO DAILY PRN PRN Reason: Constipation Metoclopramide HCl (Reglan) 5 - 10 mg IVP Q6H PRN PRN Reason: Nausea &/or vomiting Metoprolol Tartrate (Lopressor) 25 mg PO BIDWM [facility] Morphine Sulfate (Morphine Sulfate Inj) 2 - 4 mg IVP Q2H PRN PRN Reason: Pain Stop: 05/04/17 19:17 Morphine Sulfate (Morphine Sulfate Inj) 2 - 4 mg IVP Q5M PRN PRN Reason: Angina Nifedipine (Procardia Xl) 90 mg PO DAILY [facility] Last Admin: 05/03/17 08:52 Dose: 90 mg Nitroglycerin (Nitrostat) 0.4 mg SL Q5MIN3 PRN PRN Reason: Angina [id number] Ethyl Esters (Lovaza) 1 gm PO BID [facility] Last Admin: 05/04/17 08:53 Dose: 1 gm Ondansetron HCl (Zofran) 4 mg IVP Q6H PRN PRN Reason: Nausea &/or vomiting Pantoprazole Sodium (Protonix Iv) 40 mg IVP DAILY [facility] Last Admin: 05/04/17 08:59 Dose: 40 mg Promethazine HCl (Phenergan Inj) 12.5 - 25 mg IVP Q6H PRN PRN Reason: Nausea &/or vomiting Sodium Chloride (Iv Flush) 10 - 80 ml IVF PRN PRN PRN Reason: Flushing Last Admin: 05/02/17 13:45 Dose: 10 ml Ticagrelor (Brilinta) 90 mg PO BID [facility] Last Admin: 05/04/17 08:52 Dose: 90 mg Results 05/04/17 05:02 05/04/17 05:02 Cardiac Enzymes 05/03/17 05/03/17 05/03/17 Range/Units 09:56 16:13 22:36 Troponin I 53.300 H 54.800 H 64.900 H (0-0.12) ng/ml 05/04/17 Range/Units 05:02 Troponin I 57.900 H (0-0.12) ng/ml CBC 05/04/17 Range/Units 05:02 WBC 15.4 H (4.5-11.0) T/MM3 RBC 3.52 L (4.50-5.90) M/MM3 Hgb 9.9 L (13.5-17.5) GM/DL Hct 31.1 L (41-53) % Plt Count 376 (130-400) T/MM3 Neut # (Auto) Not performed Lymph # (Auto) Not performed [place] # (Auto) Not performed Eos # (Auto) Not performed Baso # (Auto) Not performed Comprehensive Metabolic Panel 05/04/17 Range/Units 05:02 Sodium 142 (134-144) MEQ/L Potassium 3.8 (3.6-5) MEQ/L Chloride 105 (98-107) MEQ/L Carbon Dioxide 24 (22-30) MEQ/L BUN 53.0 H* (9-20) MG/DL Creatinine 2.9 H D (0.8-1.5) MG/DL Glucose 169 H (75-110) MG/DL Calcium 8.4 (8.4-10.2) MG/DL Intake and Output 05/03/17 05/04/17 05/04/17 22:59 06:59 14:59 Intake Total 154.043 / 154.043 600 / 600 100.465 / 100.465 Output Total 825 / 825 600 / 600 Balance -670.957 / -670.957 0 / 0 100.465 / 100.465 Intake: IV 154.043 / 154.043 600 / 600 100.465 / 100.465 Eptifibatide 75 mg In 100 42.593 / 42.593 0.465 / 0.465 ml @ 1 MCG/KG/MIN 6.686 mls/hr IV .[id number] [facility] Rx #:[id number] Nitroglycerin Drip 50 mg 11.45 / 11.45 In 250 ml @ 5 MCG/MIN 1.5 mls/hr IV .Q24H PRN Rx#: [id number] Piperacillin/Tazobactam 2 100 / 100 100 / 100 100 / 100 .25 gm In Ns 100 ml @ 200 mls/hr IV Q6H [facility] Rx#: [id number] Vancomycin 1,500 mg In NS 500 / 500 500ml 500 ml @ 250 mls/ hr IV O ONE Rx#: [id number] Output: Urine 825 / 825 600 / 600 Other: Urine Appearance Cloudy Urine Color Yellow Urine Odor Strong # Incontinent Voids 1 - Imaging and Cardiology Echo: report reviewed Cardiac cath: report reviewed Imaging & Cardiology Narrative: Date of Exam: 05/02/17 Type of Exam(s): US echo doppler complete DATE OF PROCEDURE May 02, 2017 This is a two-dimensional echo with spectral Doppler, color-flow and M-mode. It was obtained in a patient with myocardial infarction. Left atrium is dilated. Left ventricle end-diastolic dimension is normal. Left ventricular wall thickness is normal. [place] and inferior dillard are hypo-to- akinetic with ejection fraction of about 40%. Right atrium is dilated. Right ventricle is normal. Aortic root dimension is normal. Mitral valve annulus is calcified. Mitral valve leaflets are normal with moderate mitral regurgitation. Aortic valve shows fibrocalcific changes with no stenosis. Trace of aortic insufficiency is present. Tricuspid valve shows moderate tricuspid regurgitation with moderate pulmonary hypertension with estimated pulmonary artery systolic pressure of 53. Pulmonary valve shows mild pulmonary insufficiency. There is no pericardial effusion. IMPRESSION 1. Wall motion abnormalities as described above with ejection fraction of about 40%. 2. Biatrial dilation. 3. Mitral annulus calcification with moderate mitral regurgitation. 4. Aortic sclerosis with trace of aortic insufficiency. 5. Moderate tricuspid regurgitation with moderate pulmonary hypertension with estimated pulmonary artery systolic pressure of 53. 6. Mild pulmonary insufficiency. 05/04/17 09:27 05/04/17 09:28 = = = = = = = = = = = = = = = = = = = = = = = = = = = = = = = = = = = = = = = = = = = = = = = = = = = = = = = = = = = Date of Exam: 05/03/17 Type of Exam(s): CA heart cath LT DATE OF PROCEDURE May 03, 2017 The patient is an 86-year-old gentleman who was admitted with AZ and a cardiac catheterization was performed yesterday which showed occlusion of the vein graft to RCA and it was intervened with thrombectomy PTCA. There was a large quantity of thrombus present in the graft and therefore he was started on Integrilin yesterday and was brought back in for evaluation and possible further intervention. Informed consent was obtained after explaining the procedure and the potential risks to the patient including risk of renal failure. The patient and family agreed to proceed with the procedure. PROCEDURE 1. PTCA and stent of the vein graft to RCA using 3.0 x 26 and 3.5 x 18 drug- eluting Resolute Liam stents. 2. Right femoral angiography to visualize the vessel for Mynx deployment. 3. Successful Mynx deployment for hemostasis. TECHNIQUE The patient was prepped and draped in the usual sterile techniques. Conscious sedation was performed using Versed and fentanyl. 1% lidocaine was used for local anesthesia. Using modified Seldinger technique, arterial access was obtained into the right femoral artery with placement of a 6-Uzbek arterial sheath. The patient was on Integrilin and 6000 units of heparin was administered. He is already on dual antiplatelet therapy including Brilinta and aspirin. A 6-Uzbek JR4 guide was advanced to the ostium of the graft to the RCA. Angiography of the graft showed subtotal occlusion distally with large quantity of thrombus present. Next, we used a 2.5 x 15 balloon which was delivered to the lesion site and inflated up to 15 atmospheres. Next, the balloon was exchanged for a 3.0 x 26 drug-eluting Resolute Liam stent which was delivered to the most distal part of the lesion where it was deployed by inflating the balloon to 16 atmospheres. Next, we used a 3.5 x 18 drug-eluting Resolute [place] stent which was delivered proximal to the previous stent and deployed by inflating the balloon to 18 atmospheres. Next, angiogram showed excellent results with no residual stenosis. Right femoral angiography showed patent common femoral, proximal SFA and profunda and therefore Mynx was used for hemostasis. IMPRESSION 1. Successful PTCA and stent of the vein graft to RCA using 3.0 x 26 and 3.5 x 18 drug-eluting Resolute Liam stents. 2. Successful Mynx deployment for hemostasis. PLAN Will keep him on dual antiplatelet therapy at least for year and continue Integrilin for 18 hours. - EKG Interpretation EKG: sinus rhythm EKG shows: bradycardia Assessment and Plan - Assessment and Plan (1) NSTEMI (non-ST elevated myocardial infarction) Current visit: Yes Status: Acute Stop Integrilin at noon. Continue Aspirin and Brilinta - Troponin trending downward. 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 (8) Hospital-acquired pneumonia Current visit: Yes Status: Acute per Dr. Hill and Dr. Yancey - Assessment and Plan 05/02/17 NSTEMI (non-ST elevated myocardial infarction) Denies chest pain or pressure. BROOKS last 2 weeks. - Troponin elevated to 3.300, repeat 3.110 - EKG with ST depression in precordial leads, ST elevation in lead III. 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 Hill, we appreciate your assistance CKD (chronic kidney disease) BUN 50/ CR 2.5 COPD (chronic obstructive pulmonary disease) Exacerbation versus pneumonia. Consult Dr. Hill, thank you for your assistance. 05/03/17 Left heart cath revealed vein graft to RCA occluded. Ballooned and Integrilin drip overnight. Continue Aspirin and Brilinta for dual anti-platelet therapy, continue home BB Plan repeat cath with possible stent placement this afternoon. trend serial troponin Bumex 2mg IV Q6h for diuresis Change simvastatin to Atorvastatin 80mg daily 05/04/17 NSTEMI: Stop Integrilin at noon. Continue Aspirin and Brilinta - Troponin trending downward. Creatinine 2.9 today, hold Bumex, get BNP and CXR - remains on 6L/NC - Change Bumex to 2mg IV Q 12h starting tomorrow - change Atenolol to Metoprolol due to renal function Hospital Course Summary Disclaimer: The visit summary below is not to be considered part of the above Progress Note. <Jayjay Back - Last Filed: 05/05/17 12:06> Exam Vital signs: Temperature 98.7 F 05/05/17 04:30 Pulse Rate 72 05/05/17 08:00 Respiratory Rate 32 H 05/05/17 11:15 Blood Pressure 135/72 05/05/17 07:00 Pulse Oximetry 94 05/05/17 11:15 Results 05/05/17 04:30 05/05/17 04:30 Cardiac Enzymes 05/05/17 Range/Units 04:30 AST 61 H (17-59) U/L CBC 05/05/17 Range/Units 04:30 WBC 16.5 H (4.5-11.0) T/MM3 RBC 3.39 L (4.50-5.90) M/MM3 Hgb 9.5 L (13.5-17.5) GM/DL Hct 29.9 L (41-53) % Plt Count 391 (130-400) T/MM3 Comprehensive Metabolic Panel 05/05/17 Range/Units 04:30 Sodium 140 (134-144) MEQ/L Potassium 3.5 L (3.6-5) MEQ/L Chloride 103 (98-107) MEQ/L Carbon Dioxide 22 (22-30) MEQ/L BUN 60.0 H* (9-20) MG/DL Creatinine 3.9 H D (0.8-1.5) MG/DL Glucose 202 H (75-110) MG/DL Calcium 8.5 (8.4-10.2) MG/DL Unconjugated Bilirubin 0.20 (0.00-1.1) MG/DL AST 61 H (17-59) U/L ALT 43 (21-72) U/L Alkaline Phosphatase 108 D (38-126) U/L Total Protein 7.0 (6.3-8.2) G/DL Albumin 3.2 L (3.5-5.0) G/DL Intake and Output 05/04/17 05/05/17 05/05/17 22:59 06:59 14:59 Intake Total 100 / 100 340 / 340 240 / 240 Output Total 125 / 125 Balance -25 / -25 340 / 340 240 / 240 Intake: IV 100 / 100 100 / 100 Piperacillin/Tazobactam 2 100 / 100 100 / 100 .25 gm In Ns 100 ml @ 200 mls/hr IV Q8H [facility] Rx#: [id number] Oral 240 / 240 240 / 240 Output: Urine 125 / 125 Other: Urine Appearance Clear Urine Color Dark Yellow Size of Bowel Movement Moderate # Voids 1 Weight 83.1 kg Patient Weight 05/06/17 06:59 Weight 83.1 kg Assessment and Plan - Assessment and Plan (1) NSTEMI (non-ST elevated myocardial infarction) Current visit: Yes Status: Acute (2) 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 I am involved in the formulation of the patient's plan of care. Hospital Course Summary Disclaimer: The visit summary below is not to be considered part of the above Progress Note.
[2017-05-04] MEDS: EPTIFIBATIDE 75 MG/100 ML VIAL IV SCH (09:33)
[2017-05-04] MEDS: CALCITRIOL 0.25 MCG CAPSULE PO SCH (09:37)
[2017-05-04] MEDS: BENZONATATE 100 MG CAPSULE PO SCH ×3 (09:37→21:00)
--- NOTE | 2017-05-04 09:39 | XRay Report ---
Indication: chf PROCEDURE: XR chest 1V: Encounter: Initial Comparison: Chest CT dated May 02, 2017 Findings: Continued consolidation in the right lower lobe with small pleural effusions. Mild airspace opacity in the right upper lobe. No pneumothorax. Cardiac silhouette is mildly enlarged. Prior sternotomy. Pulmonary vascularity is mildly prominent. Impression: Right lower lobe pneumonia with mild pulmonary edema. .
[2017-05-04] MEDS: ALBUTEROL/IPRATROPIUM 2.5mg-0.5mg/3ml NEB AEROSOL PRN ×2 (10:57→13:47)
--- NOTE | 2017-05-04 11:56 | Pharmacy Consult-Antibiotics ---
Pharmacy Consult-Vancomycin - Laboratory Information WBC 15.4 T/MM3 (4.5-11.0) H 05/04/17 05:02 BUN 53.0 MG/DL (9-20) H* 05/04/17 05:02 Creatinine 2.9 MG/DL (0.8-1.5) H D 05/04/17 05:02 Procalcitonin 0.50 NG/ML 05/02/17 18:53 - Consult Information Vancomycin protocol initially ordered but will stop per Dr Yancey recommendation of [place] alone. Thank you.
[2017-05-04] MEDS ORDERED: PNEUMOCOCCAL VAC ADMIN CHARGE INJ ONE (13:00)
[2017-05-04] MEDS: HEPARIN SUB-Q 5,000units/0.5ml INJECTION SQ SCH ×2 (14:24→21:02)
[2017-05-04] MEDS: ALBUTEROL/IPRATROPIUM 2.5mg-0.5mg/3ml NEB AEROSOL SCH (19:20)
[2017-05-04] MEDS: ATORVASTATIN 40 MG TABLET PO SCH (21:01)
--- NOTE | 2017-05-04 22:26 | Progress Note ---
- Date 05/04/17 Subjective: patient doing better today. states cough much improved from admission. SOA improved from admission as well albeit not back to baseline. no fevers, chills , body aches, focal neurologic deficits. still generally fatigued and weak but no more than previous. no falls, trauma, injuries. he got up and walked a bit today he says and felt very weak on his feet. no confusion, delerium symptoms, psychosis symptoms, sinus issues. no new skin changes or rashes. cath site in right groin without significant pain and nursing notes this looks good overall. no new edema, leg asymmetry. no chest pain. no orthopnea, PND, other new heart failure symptoms. oxygenation has improved throughout the day and is now on 3 liters O2 and saturating at 98%. other vitals have been generally stable. no hemoptysis. sputum production is minimal at this point. no abdominal pain , GERD symptoms, hematemesis, coffee ground emesis, melena, BRBPR, diarrhea, constipation. patient notes he's had X1 normal BM today. appetite is a bit better today. no nausea, vomiting. no dysuria, hematuria, flank pain, urinary/ bowel incontinance, other urinary symptoms/changes per patient. no new or changing joint or musculoskeletal issues. no events called on telemetery. no acute events overnight. no new issues otherwise at this time. Objective Vital signs: Temperature 98.5 F 05/04/17 16:00 Pulse Rate 65 05/04/17 20:01 Respiratory Rate 36 H 05/04/17 20:01 Blood Pressure 127/56 05/04/17 20:01 Pulse Oximetry 98 05/04/17 20:01 Rhythm: Normal Sinus Rhythm Height/Weight/BMI: Weight 83.2 kg Comments: defer examination of cath site as cardiology is following this. - Constitutional Present: no acute distress, cooperative. Absent: cachectic, diaphoretic, disheveled, combative, agitated, somnolent, obtunded - Routine HEENT Exam Head: Present: normocephalic, atraumatic ENT: Present: mucous membranes moist - Routine Respiratory Exam Present: CTA bilaterally. Absent: accessory muscle use, patient mechanically ventilated, dyspnea, decreased breath sounds, prolonged expiratory phase, rales , respiratory distress, rhonchi, stridor, wheezes, crackles, distant breath sounds, diminished air movement Comments: lung sounds heard in all lung [place] b/l at this time. lung sound excellent right now. - Routine Cardiovascular Exam Comments: cardiac exam unchanged from previous. no new edema. legs symmetrical and compartments soft b/l in LE's at this time. clinically well perfused in all 4 extremities b/l at this time. no pallor or cyanosis of extremities. - Routine Abdominal Exam Present: soft (X4.), normoactive bowel sounds (X4.), non distended (X4.), non tender (X4.). Absent: tenderness (X4.), distended (X4.), rebound, guarding, firm, rigid, organomegaly Comments: no ascites, jaundice, distension. - Routine Exam Comments: no tenderness over bladder area. no clinical evidence of upper UTI at this time. - Routine Extremities Exam Absent: cyanosis, joint swelling, pallor, extremity cold to touch - Routine Back/Spine/Pelvis Exam Comments: see the above. - Routine Musculoskeletal Exam Musculoskeletal: Present: no joint swelling, moving extremities well. Absent: joint erythera, joint swelling - Routine Skin Exam Present: intact Comments: no changes from previous to uncovered areas. - Routine Neurological Exam no focal deficits at this time. no changes neurologically from previous baseline. - Routine Lymphatic Exam Lymphatic: Absent: lymphedema - Routine Psychiatric Exam Present: normal affect, normal thought process, cooperative, good insight. Absent: auditory hallucinations, visual hallucinations, tactile hallucinations, depressed, anxious, agitated, paranoid, manic Comments: affect and cognition at patient's usual baseline. no clinical evidence of delerium or altered mentation/sensorum/alertness at this time. Results - Labs CBC & Chem 7: 05/04/17 05:02 05/04/17 05:02 Microbiology Results: Microbiology 05/03/17 09:55 Sputum, Expectorated Gram Stain - Final 05/03/17 09:55 Sputum, Expectorated Sputum Culture - Preliminary Gram Negative Tanner Assessment and Plan Assessment and Plan: acute NSTEMI s/p ballooning to graft to RCA on 05/02/17. X2 drug eluting stents placed 05/03/17 hospital acquired pneumonia and severe sepsis (patient hospitalized a few months ago for gallbladder issues in [place]) gram negative rods in sputum secondary to the above acute hypoxic respiratory failure secondary to the above T2DM chronic multifactorial anemia leukocytosis secondary to the above. HTN chronic kidney disease hyperlipidemia hypothyroid recent episodes of hypoglycemia -vital signs, telemetry, oxygen, cardiac diet, continuous pulse oximetry and other admission orders per cardiology. cath site orders and monitoring per cardiology. vitals and ICU per cardiology. -cbc's today with generally stable leukcytosis and anemia and otherwise unremarkable. no bands. cmp's with sugars in 100's, creatinine up to 2.9, BUN up to 53 and otherwise unremarkable. mg' s look ok. GLUBS in 100's generally. sputum culture with gram negative rods. urine strep pneumonia and legionella negative. repeat CXR's generally with stable pneumonia and clinically patient is improving in this regard. repeat EKG' s generally stable. see previous notes for other testing and results from this stay. -sputum sensitivities and speciation, blood cultures X2, mycoplasma serologies still pending. -cbc, cmp, mg, EKG in AM per cardiology. -continue current brilinta, ASA, synthroid, statin, beta-froylan, calcitriol , procardia, GLUBS, novolog s/s, hypoglycemia protocol, IV zosyn (day 3), IV bumex, tylenol prn, dulcolax prn, morphine prn, zofran prn, atropine prn per cardiology, fish oil, nitroglycerin, tessalon perles, duonebs scheduled QID at this time. -integrilin discontinued now. continue holding short acting insulin as sugars look ok now on current sliding scale. continue holding lantus for now. considering results of sputum culture above we have discontinued vancomycin. -cardiology primary. cardiac rehab consulted. infectious disease, Dr. Yancey consulted and spoken with and agrees with current management. rehab consulted. speech therapy consulted on admission. no clinical evidence of aspiration since admission. -further management pending above. all other chronic medical conditions stable and no changes to plan of care at this time. ppx -SQ heparin for DVT ppx. d/c SCD's. patient not wearing them anyway and it sounds like he's refusing these. -PO diet and IV ppi as above for GI ppx for now. -DNR/DNI. -dispo continue ICU care for now. DVT Prophylaxis: SQ Heparin GI Prophylaxis: Protonix, other (continue PO diet as tolerated.) Resuscitation Status: Do Not Resuscitate (DNR/DNI) - Time spent with patient Time with patient PN: 25 minutes Sepsis Assessment - Evaluation Possible source: pulmonary (see previous notes for details. )
[2017-05-05] MEDS: HEPARIN SUB-Q 5,000units/0.5ml INJECTION SQ SCH ×3 (01:23→16:49)
[2017-05-05] MEDS: PIPERACILLIN/TAZOBACTAM 2.25 GM in NS 100 ML IV SCH ×4 (04:20→20:36)
[2017-05-05] MEDS: LEVOTHYROXINE 50 MCG TABLET PO SCH (06:00)
[2017-05-05] MEDS: INSULIN ASPART 100unit/ml INJECTION SQ PRN ×4 (06:01→21:50)
[2017-05-05] MEDS: ALBUTEROL/IPRATROPIUM 2.5mg-0.5mg/3ml NEB AEROSOL SCH ×4 (07:00→20:18)
[2017-05-05] MEDS: OMEGA-3 ACID ESTERS 1 GM CAPSULE PO SCH ×2 (08:20→21:07)
[2017-05-05] MEDS: BENZONATATE 100 MG CAPSULE PO SCH ×3 (08:20→21:06)
[2017-05-05] MEDS: TICAGRELOR 90 MG TABLET PO SCH (08:21)
[2017-05-05] MEDS: CALCITRIOL 0.25 MCG CAPSULE PO SCH (08:21)
[2017-05-05] MEDS: SALINE FLUSH 10ml SYRINGE IVF PRN ×3 (08:22→12:58)
[2017-05-05] MEDS: ASPIRIN *EC* 81 MG TABLET PO SCH (08:56)
[2017-05-05] MEDS: PANTOPRAZOLE 40 MG INJECTION IVP SCH (09:00)
[2017-05-05] MEDS ORDERED: BUMETANIDE 2.5mg/10ml INJECTION IVP SCH (09:00)
[2017-05-05] MEDS: NS 1,000 ML IV SCH ×2 (10:17→22:18)
[2017-05-05] MEDS: MORPHINE SULFATE 2mg INJECTION IVP PRN ×2 (14:25→16:31)
--- NOTE | 2017-05-05 14:38 | Ultrasound Report ---
Indication: Renal insufficiency following heart catheterization PROCEDURE: US renal BI: Encounter: Initial Comparison: Renal ultrasound dated September 26, 2015 Technique: Grayscale and color Doppler sonographic imaging of both kidneys was performed. FINDINGS: Both kidneys are present with mild cortical thinning and normal echogenicity. No evidence for collecting system dilatation, contour deforming mass, nephrolithiasis, or abnormal perinephric fluid collection. The right kidney measures 8.5 cm in length, and the left kidney measures 9.4 cm in length. IMPRESSION: No hydronephrosis. .
--- NOTE | 2017-05-05 15:01 | Cardiology Progress Note ---
<Leslie Zapien - Last Filed: 05/06/17 14:20> Subjective Principal diagnosis: NSTEMI Interval history: Ed is seen in follow up following NSTEMI and left heart cath 05/02/17 and . He is tachypneic with accessory muscle use but is laying almost flat in the bed. His daughter is at the bedside and I discussed with Ed at length the severity of his WI, pneumonia and kidney failure. We discussed the use of diuretics and other medications to improve his dyspnea and air hunger. He states that he does not want hemodialysis but would rather be kept comfortable. He denies chest pain. Exam Vital signs: Temperature 97.4 F 05/05/17 11:00 Pulse Rate 70 05/05/17 12:00 Respiratory Rate 32 H 05/05/17 11:15 Blood Pressure 113/61 05/05/17 11:00 Pulse Oximetry 94 05/05/17 11:15 - Constitutional moderate distress, cooperative - Routine HEENT Exam Head: Present: normocephalic ENT: Present: mucous membranes moist - Routine Neck Exam Absent: carotid bruit - Routine Chest/Breast/Axilla Exam Chest wall: Absent: tenderness - Routine Respiratory Exam Present: accessory muscle use, dyspnea, CTA bilaterally, diminished air movement - Routine Cardiovascular Exam Present: RRR, bradycardia - Routine Abdominal Exam Present: soft, normoactive bowel sounds - Routine Extremities Exam Present: no edema - Routine Skin Exam Present: intact, dry, warm - Routine Neurological Exam Present: alert, oriented X3 - Routine Psychiatric Exam Present: normal affect, normal thought process - Additional findings Additional findings: Acetaminophen (Tylenol) 650 mg PO Q6H PRN PRN Reason: Pain Last Admin: 05/04/17 10:27 Dose: 650 mg Albuterol/Ipratropium (Duoneb) 3 ml AEROSOL RTQID [facility] Last Admin: 05/05/17 11:15 Dose: 3 ml Aspirin (Ecotrin) 81 mg PO DAILY [facility] Last Admin: 05/05/17 08:56 Dose: 81 mg Atorvastatin Calcium (Lipitor) 80 mg PO HS [facility] Last Admin: 05/04/17 21:01 Dose: 80 mg Atropine Sulfate (Atropine) 0.5 mg IVP Q5M PRN PRN Reason: Bradycardia Benzonatate (Tessalon Perles) 100 mg PO TID [facility] Last Admin: 05/05/17 08:20 Dose: 100 mg Bisacodyl (Dulcolax) 5 - 10 mg PO DAILY PRN PRN Reason: Constipation Bumetanide (Bumex Inj) 2 mg IVP BID [facility] Last Admin: 05/05/17 08:59 Dose: 2 mg Calcitriol (Rocaltrol) 0.25 mcg PO DAILY [facility] Last Admin: 05/05/17 08:21 Dose: 0.25 mcg Dextrose (D50%W) 10 - 20 ml IVP PRN PRN PRN Reason: Hypoglycemia Glucose (Glutose 15) 37.5 gm PO PRN PRN PRN Reason: Hypoglycemia Heparin Sodium (Porcine) (Heparin Sq) 5,000 units SQ Q8HR [facility] Last Admin: 05/05/17 10:18 Dose: 5,000 units Nitroglycerin (Nitroglycerin Drip) 50 mg in 250 mls @ 1.5 mls/hr IV .Q24H PRN; 5 MCG/MIN PRN Reason: Protocol Last Titration: 05/03/17 17:00 Dose: Infused Piperacillin Sod/Tazobactam (Sod 2.25 gm/ Sodium Chloride) 100 mls @ 200 mls/ hr IV Q8H [facility] Last Admin: 05/05/17 12:57 Dose: 200 mls/hr Sodium Chloride (Normal Saline) 1,000 mls @ 100 mls/hr IV .Q10H [facility] Last Infusion: 05/05/17 12:00 Dose: 100 mls/hr Insulin Aspart (Novolog) 0 unit SQ SS PRN; Protocol PRN Reason: Hyperglycemia Last Admin: 05/05/17 12:57 Dose: 3 unit Levothyroxine Sodium (Synthroid) 50 mcg PO ACB [facility] Last Admin: 05/05/17 06:00 Dose: 50 mcg Methylprednisolone Sodium Succinate (Solu-Medrol) 40 mg IVP Q8HR [facility] Metoprolol Tartrate (Lopressor) 25 mg PO BIDWM [facility] Last Admin: 05/05/17 10:18 Dose: 25 mg Morphine Sulfate (Morphine Sulfate Inj) 2 - 4 mg IVP Q5M PRN PRN Reason: Angina Morphine Sulfate (Morphine Sulfate Inj) 2 mg IVP Q2HR PRN PRN Reason: Air hunger Last Admin: 05/05/17 14:25 Dose: 2 mg Nifedipine (Procardia Xl) 90 mg PO DAILY [facility] Last Admin: 05/05/17 08:20 Dose: 90 mg Nitroglycerin (Nitrostat) 0.4 mg SL Q5MIN3 PRN PRN Reason: Angina Zjctv-3-Igue Ethyl Esters (Lovaza) 1 gm PO BID [facility] Last Admin: 05/05/17 08:20 Dose: 1 gm Ondansetron HCl (Zofran) 4 mg IVP Q6H PRN PRN Reason: Nausea &/or vomiting Pantoprazole Sodium (Protonix Iv) 40 mg IVP DAILY [facility] Last Admin: 05/05/17 09:00 Dose: 40 mg Sodium Chloride (Iv Flush) 10 - 80 ml IVF PRN PRN PRN Reason: Flushing Last Admin: 05/05/17 12:58 Dose: 10 ml Ticagrelor (Brilinta) 90 mg PO BID [facility] Last Admin: 05/05/17 08:21 Dose: 90 mg Results 05/06/17 04:44 05/06/17 04:44 Cardiac Enzymes 05/05/17 Range/Units 04:30 AST 61 H (17-59) U/L CBC 05/05/17 Range/Units 04:30 WBC 16.5 H (4.5-11.0) T/MM3 RBC 3.39 L (4.50-5.90) M/MM3 Hgb 9.5 L (13.5-17.5) GM/DL Hct 29.9 L (41-53) % Plt Count 391 (130-400) T/MM3 Comprehensive Metabolic Panel 05/05/17 Range/Units 04:30 Sodium 140 (134-144) MEQ/L Potassium 3.5 L (3.6-5) MEQ/L Chloride 103 (98-107) MEQ/L Carbon Dioxide 22 (22-30) MEQ/L BUN 60.0 H* (9-20) MG/DL Creatinine 3.9 H D (0.8-1.5) MG/DL Glucose 202 H (75-110) MG/DL Calcium 8.5 (8.4-10.2) MG/DL Unconjugated Bilirubin 0.20 (0.00-1.1) MG/DL AST 61 H (17-59) U/L ALT 43 (21-72) U/L Alkaline Phosphatase 108 D (38-126) U/L Total Protein 7.0 (6.3-8.2) G/DL Albumin 3.2 L (3.5-5.0) G/DL Intake and Output 05/04/17 05/05/17 05/05/17 22:59 06:59 14:59 Intake Total 100 / 100 340 / 340 611.667 / 611.667 Output Total 125 / 125 Balance -25 / -25 340 / 340 611.667 / 611.667 Intake: IV 100 / 100 100 / 100 171.667 / 171.667 Ns 1,000 ml @ 100 mls/hr 171.667 / 171.667 IV .Q10H [facility] Rx#: [id number] Piperacillin/Tazobactam 2 100 / 100 100 / 100 .25 gm In Ns 100 ml @ 200 mls/hr IV Q8H [facility] Rx#: [id number] Oral 240 / 240 440 / 440 Output: Urine 125 / 125 Other: Urine Appearance Clear Urine Color Dark Yellow Size of Bowel Movement Moderate # Voids 1 Weight 183 lb 3.266 oz Patient Weight 05/06/17 06:59 Weight 183 lb 3.266 oz - Imaging and Cardiology Imaging & Cardiology Narrative: Date of Exam: 05/05/17 Ordering Provider: Willy Hill MD Type of Exam(s): US renal BI Reason for Exam(s): do now. bilateral renal ultrasound. I don't want a biopsy. Indication: Renal insufficiency following heart catheterization PROCEDURE: US renal BI: Encounter: Initial Comparison: Renal ultrasound dated September 26, 2015 Technique: Grayscale and color Doppler sonographic imaging of both kidneys was performed. FINDINGS: Both kidneys are present with mild cortical thinning and normal echogenicity. No evidence for collecting system dilatation, contour deforming mass, nephrolithiasis, or abnormal perinephric fluid collection. The right kidney measures 8.5 cm in length, and the left kidney measures 9.4 cm in length. IMPRESSION: No hydronephrosis. 05/05/17 15:03 Assessment and Plan - Assessment and Plan (1) NSTEMI (non-ST elevated myocardial infarction) Status: Acute Stop Brilinta as can cause SOA. 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 - Morphine 2mg IV Q2H for air hunger as needed - Stop Metoprolol and Brilinta - Give loading 600mg Plavix now - Assessment and Plan 05/02/17 NSTEMI (non-ST elevated myocardial infarction) Denies chest pain or pressure. BROOKS last 2 weeks. - Troponin elevated to 3.300, repeat 3.110 - EKG with ST depression in precordial leads, ST elevation in lead III. 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 Hill, we appreciate your assistance CKD (chronic kidney disease) BUN 50/ CR 2.5 COPD (chronic obstructive pulmonary disease) Exacerbation versus pneumonia. Consult Dr. Hill, thank you for your assistance. 05/03/17 Left heart cath revealed vein graft to RCA occluded. Ballooned and Integrilin drip overnight. Continue Aspirin and Brilinta for dual anti-platelet therapy, continue home BB Plan repeat cath with possible stent placement this afternoon. trend serial troponin Bumex 2mg IV Q6h for diuresis Change simvastatin to Atorvastatin 80mg daily 05/04/17 NSTEMI: Stop Integrilin at noon. Continue Aspirin and Brilinta - Troponin trending downward. Creatinine 2.9 today, hold Bumex, get BNP and CXR - remains on 6L/NC - Change Bumex to 2mg IV Q 12h starting tomorrow - change Atenolol to Metoprolol due to renal function 05/05/17 - Stop Brilinta as can cause SOA. Change to Plavix - Stop Beta froylan due to dyspnea - Morphine 2mg IV Q2H for air hunger as needed Creatinine up to 3.9 today - Start NS at 100mL/H - Hold Bumex - Repeat BMP now and in am Hospital Course Summary Disclaimer: The visit summary below is not to be considered part of the above Progress Note. 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 I am involved in the formulation of the patient's plan of care. Hospital Course Summary Disclaimer: The visit summary below is not to be considered part of the above Progress Note.
[2017-05-05] MEDS: METHYLPREDNISOLONE SOD SUCC 40mg/ml INJECTION IVP SCH (17:25)
[2017-05-05] MEDS ORDERED: CLOPIDOGREL 75 MG TABLET PO ONE (17:28)
[2017-05-05] MEDS: ALBUTEROL/IPRATROPIUM 2.5mg-0.5mg/3ml NEB AEROSOL PRN ×2 (17:38→23:15)
--- NOTE | 2017-05-05 18:35 | Progress Note ---
- Date 05/05/17 Subjective: patient seen at bedside again today. while his oxygen needs have stayed at about 3 liters he's found himself more short of air today and he's been quite labored with this. renal function also worsening but patient adamantly refuses any dialysis, acute or chronic. no orthopnea, PND, new edema he just notes he' s SOA all the time. some wheezes. no headaches, storke symptoms, focal neurologic deficits. he is generally fatigued and weak but no more than before he says. still unsteady on his feet when he gets up. no vision changes, cranial nerve symptoms, falls, trauma, injuries. no numbness/weakness/tingling anywhere. exertion especially makes him SOA. RR's in 30's generally at rest and some retractions noted which it sounds like he's had off an on since admission. no dizziness, syncope, near-syncope, fevers, chills, body aches, night sweats, constitutional symptoms. no chest pain. cough minimal if any. no sputum production. no hemoptysis. no palpitations, abdominal pain, GERD symptoms, nausea, vomiting, diarrhea, constipation, bloody/black stools, dysphagia, aspiration symptoms. appetite not all that good today. no dysuria, hematuria, flank pain or other urinary issues. no urinary changes or new symptoms from previous. no new skin changes or rashes. no boggy or inflammed joints. no mood changes otherwise or altered mentation/delerium symtpoms. not obtunded. no events called to us on telemetry. no other acute issues since last visit and patient's respiratory status has just worsened some gradually. Objective Vital signs: Temperature 97.4 F 05/05/17 11:00 Pulse Rate 70 05/05/17 12:00 Respiratory Rate 30 H 05/05/17 17:38 Blood Pressure 113/61 05/05/17 11:00 Pulse Oximetry 92 05/05/17 17:38 Rhythm: Normal Sinus Rhythm Height/Weight/BMI: Weight 83.1 kg - Constitutional Present: moderate distress (from a respiratory standpoint.), cooperative. Absent: cachectic, diaphoretic, disheveled, combative, agitated, somnolent, obtunded - Routine HEENT Exam Head: Present: normocephalic, atraumatic Eye: Absent: periorbital swelling, proptosis ENT: Present: mucous membranes moist - Routine Respiratory Exam Present: accessory muscle use (some accessory muscle use today. ), dyspnea, respiratory distress (mild at rest. moderate on exertion.), wheezes (mild, bibasilar, end-expiratory. ), diminished air movement (moderately diminished air movement at this time. ). Absent: patient mechanically ventilated, prolonged expiratory phase, rales, rhonchi, stridor, crackles, distant breath sounds - Routine Cardiovascular Exam Comments: cardiac exam unchanged from previous. no new edema. legs symmetrical and compartments soft b/l in LE's at this time. pulses strong and clinically well perfused in all 4 extremities b/l at this time. no stigmata of heart failure otherwise at this time. - Routine Abdominal Exam Present: soft (X4.), normoactive bowel sounds (X4.), non distended (X4.), non tender (X4.). Absent: tenderness (X4.), distended (X4.), rebound, guarding, firm, rigid, organomegaly Comments: no ascites, jaundice, distension at this time. - Routine Extremities Exam Present: pulses intact. Absent: cyanosis, joint swelling, pallor, extremity cold to touch - Routine Back/Spine/Pelvis Exam Comments: no flank pain b/l at this time. - Routine Musculoskeletal Exam Musculoskeletal: Present: no joint swelling, no tenderness, no erythema, moving extremities well. Absent: joint erythera, joint swelling - Routine Skin Exam Present: intact Comments: no changes from previous to uncovered areas. - Routine Neurological Exam Present: alert, oriented X3 no changes neurologically from previous baseline. - Routine Lymphatic Exam Lymphatic: Absent: lymphedema - Routine Psychiatric Exam Present: normal affect, normal thought process, cooperative, good insight, good judgment. Absent: auditory hallucinations, visual hallucinations, tactile hallucinations, depressed, anxious, agitated, paranoid, manic Comments: affect and cognition unchanged from usual baseline. no clinical evidence of delerium, ashley, depression, altered mentation, confusion at this time. Results - Labs CBC & Chem 7: 05/05/17 04:30 05/05/17 18:49 Microbiology Results: Microbiology 05/03/17 09:55 Sputum, Expectorated Gram Stain - Final 05/03/17 09:55 Sputum, Expectorated Sputum Culture - Final Klebsiella pneumoniae Normal Respiratory Annita Assessment and Plan Assessment and Plan: acute NSTEMI s/p ballooning to graft to RCA on 05/02/17. X2 drug eluting stents placed 05/03/17 acute contrast and diuresis induced nephropathy and acute kindey injury. hospital acquired pneumonia and severe sepsis from [place]-sensitive klebsiella pneumonia multifactorial acute hypoxic respiratory failure secondary to the above T2DM chronic multifactorial anemia leukocytosis secondary to the above. HTN chronic kidney disease hyperlipidemia hypothyroid recent episodes of hypoglycemia -vital signs, telemetry, oxygen, cardiac diet, continuous pulse oximetry and other admission orders per cardiology. cath site orders and monitoring per cardiology. vitals and ICU care per cardiology. continue current oxygen and use BIPAP an other non-invasive respiratory support as needed and as tolerated. -cbc's with mild increase in wbc count without bandemia, gradually worsening anemia and otherwise unremarkable. GLUBS in 200's generally since starting IV solumedrol. cmp's and bmp's with creatinine up to high 3's, BUN in 60's, electrolyte and acid base status ok this AM and otherwise unremarkable. see above for sputum culture and sensitivity information. repeat CXR's and EKG's generally stable and non-acute. troponins had been in 50's to 60's. see previous notes for other testing and results from this stay. -blood cultures X2, mycoplasma serologies still pending. bilateral renal ultrasound and PVR ordered now. UA ordered. -cbc, cmp, mg, EKG, CXR in AM. follow basic metabolic panels periodically as well during day. -continue current brilinta, ASA, synthroid, statin, beta-froylan, calcitriol , procardia, GLUBS, hypoglycemia protocol, IV zosyn (day 4), IV bumex, tylenol prn, dulcolax prn, morphine prn, zofran prn, atropine prn per cardiology, fish oil, nitroglycerin, tessalon perles, duonebs scheduled QID at this time. continue current solumedrol IV. add pulmicort nebs. patient likely wouldn't tolerate incentive spirometry. increase novolog s/ s to high dose sliding scale. -discontinued IV fluids. patient clinically euvolemic right now and want to avoid fluid overload given renal issues. -cardiology primary. cardiac rehab consulted. infectious disease, Dr. Yancey consulted. rehab consulted. speech therapy consulted again no clinical evidence of aspiration since admission. spoke with patient's iron launder operator over the phone (Dr. Leyva) who agrees with current management. pulmonology a consideration but patient states he would refuse any further respiratory support or treatment. see below. -further management pending above. all other chronic medical conditions stable and no changes to plan of care at this time. ppx -SQ heparin for DVT ppx. -PO diet and IV ppi for GI ppx for now. -DNR/DNI. -dispo patient has had, through nescessity, several insults to his kidneys while here. patient cardiac issues likely causing an acute tubular necrosis initially from the sepsis. on top of this patient has had X2 cardiac cardiac catheterizations and has been diuresed aggressively as well. he is currently not oliguric but it would be a concern he could develop this. not surprisingly patient's creatinine has climbed. right now acid-base status, fluid status electrolyte status, urine output reasonably good and no immediate indication for acute dialysis present. this could change however if any of the above issues should arise. patient and daughter consulted today regarding indications for and details of both long and short term dialysis (emergent/urgent dialysis). the patient claims he wants none of this and simply wants to be kept comfortable if it comes to this. spoke with Dr. Leyva, patient's iron launder operator over phone today. agrees with PVR, UA and renal ultrasound but agrees we're limited to any further workup right now given patient refuses dialysis. he doesn't see the need for a consult with him as he wouldn't do anything differently right now. he notes the best we can hope for is that we treat any issues that may come up with the renal dysfunction (acid base issues, electrolyte issues, volume overload etc.) and hope his kidneys rally on their own. development of oliguria would portend and even worse prognosis of course. spoke with Dr. Back and hard to say whether cardiovascular status would improve any and the next couple of days will be telling not that reperfusion has been achieved. patient still adamantly against and cardiopulmonary rescuscitation or intubation, even for short term. family and patient wish to see how things unfold in the next one to two days and, if no improvement, would consider hospice which is reasonable. of course if any clinically worsening patient would consider it sooner. DVT Prophylaxis: SQ Heparin GI Prophylaxis: Protonix, other (PO diet as tolerated.) Resuscitation Status: Do Not Resuscitate (DNR/DNI and patient notes do not dialyze.) - Time spent with patient Time with patient PN: 25 minutes Sepsis Assessment - Evaluation Possible source: pulmonary Confirmed Suspected Infection: Yes SIRS Criteria: RR > or equal to 20 Severe Sepsis: Creatinine >2.0 mg/dL
[2017-05-05] MEDS: ATORVASTATIN 40 MG TABLET PO SCH (21:07)
[2017-05-06] MEDS: HEPARIN SUB-Q 5,000units/0.5ml INJECTION SQ SCH ×3 (01:07→18:00)
[2017-05-06] MEDS: METHYLPREDNISOLONE SOD SUCC 40mg/ml INJECTION IVP SCH ×3 (01:07→17:59)
[2017-05-06] MEDS: PIPERACILLIN/TAZOBACTAM 2.25 GM in NS 100 ML IV SCH ×3 (03:48→21:20)
[2017-05-06] MEDS: ALBUTEROL/IPRATROPIUM 2.5mg-0.5mg/3ml NEB AEROSOL PRN (05:15)
[2017-05-06] MEDS: INSULIN ASPART 100unit/ml INJECTION SQ PRN ×4 (06:05→22:55)
[2017-05-06] MEDS: LEVOTHYROXINE 50 MCG TABLET PO SCH (06:37)
[2017-05-06] MEDS: ASPIRIN *EC* 81 MG TABLET PO SCH (08:09)
[2017-05-06] MEDS: PANTOPRAZOLE 40 MG INJECTION IVP SCH (08:10)
[2017-05-06] MEDS: CALCITRIOL 0.25 MCG CAPSULE PO SCH (08:11)
[2017-05-06] MEDS: OMEGA-3 ACID ESTERS 1 GM CAPSULE PO SCH ×2 (08:11→21:20)
[2017-05-06] MEDS: BENZONATATE 100 MG CAPSULE PO SCH ×3 (08:13→21:20)
[2017-05-06] MEDS: CLOPIDOGREL 75 MG TABLET PO SCH (08:13)
[2017-05-06] MEDS: SALINE FLUSH 10ml SYRINGE IVF PRN ×2 (08:15→12:02)
[2017-05-06] MEDS: BUDESONIDE INH.SOLN 0.5mg/2ml NEB AEROSOL SCH (08:28)
[2017-05-06] MEDS: ALBUTEROL/IPRATROPIUM 2.5mg-0.5mg/3ml NEB AEROSOL SCH ×4 (08:28→20:43)
--- NOTE | 2017-05-06 08:29 | XRay Report ---
Indication: hypoxia PROCEDURE: XR chest 1V: Encounter: Initial Comparison: May 04, 2017 Findings: Continued airspace consolidation in the right lower lobe without significant change. No new areas of airspace disease. No pneumothorax or significant pleural effusion. Heart size and mediastinal contours are stable. Pulmonary vascular congestion has improved. Impression: Improved pulmonary vascular congestion with continued right lower lobe pneumonia. .
--- NOTE | 2017-05-06 10:39 | Pulmonology Consult Note ---
<Stephany Goodman - Last Filed: 05/06/17 10:28> History of Present Illness Consult date: 05/06/17 Reason for consult: COPD, pneumonia Chief complaint: SOA History of present illness: Mr. Roque is an 86 year old who presented to his PCP office with BROOKS/SOA and not feeling well x 2 weeks. He had passed out the night before. At the PCPs office his sats were in the 80s with ambulation and he was dyspneic. He reports having a non-productive cough and night sweats. He did not have chest pain, nausea or edema. An EKG showed some abnormalities and he was sent to the ED. The patient has a history of COPD and intermittently wears O2 at 4L/NC at home. He also has a Spiriva inhaler prescribed to him, but forgets to use it. He has a 58PHY of smoking. Quit 40 years ago. Patient was diagnosed with NSTEMI and underwent PCI on 05/03/17 with PTCA and sent placement to the RCA. CXR on admit showed bibasilar infiltrates R>L, and sputum cx was + for Klebsiella pneum. Patient currently in Acute on chronic kidney failure, refusing dialysis at this time. On 4L sats 97%, has BiPAP 16, 12/6 to assist with distress, and has been using nightly without issues. We have been consulted for his respiratory issues and appreciate the consult. Review of Systems - Constitutional Constitutional: Present: as per HPI, fatigue, weakness - EENT Mouth/Throat: Present: mucosa moist - Respiratory Respiratory: Present: cough, dyspnea, wheezing - Gastrointestinal Gastrointestinal: Present: as per HPI - Genitourinary Genitourinary: Present: as per HPI - Musculoskeletal Musculoskeletal: Present: as per HPI - Integumentary/Breasts Integumentary: Present: as per HPI - Neurological Neurological: Present: as per HPI - Psychiatric Psychiatric: Present: as per HPI - Endocrine Endocrine: Present: as per HPI [facility] Medical History NSTEMI (non-ST elevated myocardial infarction) (Acute Medical) Myocardial infarction acute (Acute Medical) Myocardial infarction complications (Acute Medical) 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 cholecystectomy. ERCP and removal of gallstone from common bile duct. possible prostate surgery in past - Social History Smoking status: Former smoker Current residence: [facility] Medications Home Medications Medication Instructions Recorded Confirmed Type Atenolol 50 mg PO DAILY #0 06/18/09 05/02/17 History Simvastatin [Zocor] 80 mg PO HS #0 06/18/09 05/02/17 History Aspirin [Aspirin EC] 81 mg PO DAILY 04/27/17 05/02/17 History Calcitriol [Rocaltrol] 0.25 mcg PO DAILY 04/27/17 05/02/17 History Insulin Aspart [Novolog Flexpen] 8 unit SQ WB 04/27/17 05/02/17 History Insulin Aspart [Novolog Flexpen] 10 unit SQ WS 04/27/17 05/02/17 History Insulin Aspart [Novolog Flexpen] 14 unit SQ WL 04/27/17 05/02/17 History Insulin Glargine,Hum.rec.anlog 60 unit SQ HS 04/27/17 05/02/17 History [Lantus Solostar] Levothyroxine Sodium 50 mcg PO DAILY 04/27/17 05/02/17 History NIFEdipine [Nifedipine ER] 90 mg PO DAILY 04/27/17 05/02/17 History [place]-3S/Dha/Epa/Fish Oil [Fish 300 mg PO BID 04/27/17 05/02/17 History Oil [place]-3 Softgel] Aspirin [Aspirin EC] 243 mg PO O 05/02/17 05/02/17 History D-Methorphan/PE/Acetaminophen 2 tab PO BID PRN 05/02/17 05/02/17 History [Tylenol Cold Multi-Symp Caplet] Allergies Allergy/AdvReac Type Severity Reaction Status Date / Time No Known Drug Allergies Allergy Unknown Verified 05/02/17 12:41 Exam Vital signs: Temperature 97.8 F 05/06/17 04:00 Pulse Rate 67 05/06/17 08:00 Respiratory Rate 24 05/06/17 08:30 Blood Pressure 110/58 05/06/17 07:00 Pulse Oximetry 97 05/06/17 08:30 - Constitutional mild distress, well nourished, well developed - Routine HEENT Exam Head: Present: normocephalic, atraumatic Eye: Present: EOMI ENT: Present: mucous membranes moist - Routine Neck Exam Present: supple, full ROM, trachea midline - Routine Respiratory Exam Present: dyspnea, wheezes, crackles - Routine Cardiovascular Exam Present: RRR, S1, S2, no murmur - Routine Abdominal Exam Present: soft, normoactive bowel sounds, non distended, non tender - Routine Extremities Exam Present: no edema, full ROM, normal capillary refill - Routine Back/Spine/Pelvis Exam Back/Spine: Present: full ROM - Routine Skin Exam Present: intact, dry, warm, normal turgor - Routine Neurological Exam Present: alert, oriented X3, CN II-XII intact, moving all extremities, normal tone - Routine Psychiatric Exam Present: normal affect, normal thought process Results - Laboratory Findings CBC and BMP: 05/06/17 04:44 05/06/17 04:44 PT/INR, D-dimer D-Dimer 1002 NG/ML (0-230) H 05/02/17 12:41 Abnormal lab findings: Abnormal Labs 05/03/17 05/03/17 05/03/17 09:56 16:13 22:36 WBC RBC Hgb Hct Neutrophils % (Manual) Lymphocytes % (Manual) Neutrophils # (Manual) Lymphocytes # (Manual) Monocytes # (Manual) Potassium Carbon Dioxide Anion Gap BUN Creatinine Glucose Calculated Osmolality Calcium AST Troponin I 53.300 H 54.800 H 64.900 H B-Natriuretic Peptide Albumin Globulin Albumin/Globulin Ratio Urine Protein Urine Ketones 05/04/17 05/04/17 05/04/17 05:02 05:02 05:02 WBC 15.4 H RBC 3.52 L Hgb 9.9 L Hct 31.1 L Neutrophils % (Manual) 74.0 H Lymphocytes % (Manual) 19.0 L Neutrophils # (Manual) 11.4 H Lymphocytes # (Manual) Monocytes # (Manual) 1.1 H Potassium Carbon Dioxide Anion Gap BUN 53.0 H* Creatinine 2.9 H D Glucose 169 H Calculated Osmolality 291 H Calcium AST Troponin I 57.900 H B-Natriuretic Peptide Albumin Globulin Albumin/Globulin Ratio Urine Protein Urine Ketones 05/04/17 05/05/17 05/05/17 05:02 04:30 04:30 WBC 16.5 H RBC 3.39 L Hgb 9.5 L Hct 29.9 L Neutrophils % (Manual) Lymphocytes % (Manual) Neutrophils # (Manual) Lymphocytes # (Manual) Monocytes # (Manual) Potassium 3.5 L Carbon Dioxide Anion Gap BUN 60.0 H* Creatinine 3.9 H D Glucose 202 H Calculated Osmolality 292 H Calcium AST 61 H Troponin I B-Natriuretic Peptide 46800 H Albumin 3.2 L Globulin 3.8 H Albumin/Globulin Ratio 0.8 L Urine Protein Urine Ketones 05/05/17 05/06/17 05/06/17 18:49 03:59 04:44 WBC 15.0 H RBC 3.17 L Hgb 8.9 L Hct 28.0 L Neutrophils % (Manual) 97.0 H Lymphocytes % (Manual) 2.0 L Neutrophils # (Manual) 14.6 H Lymphocytes # (Manual) 0.3 L Monocytes # (Manual) Potassium Carbon Dioxide 19 L Anion Gap 16 H BUN 65.0 H* Creatinine 4.3 H D Glucose 181 H Calculated Osmolality 292 H Calcium AST Troponin I 37.200 H B-Natriuretic Peptide Albumin Globulin Albumin/Globulin Ratio Urine Protein 1+ A Urine Ketones Trace A 05/06/17 04:44 WBC RBC Hgb Hct Neutrophils % (Manual) Lymphocytes % (Manual) Neutrophils # (Manual) Lymphocytes # (Manual) Monocytes # (Manual) Potassium Carbon Dioxide 18 L Anion Gap 17 H BUN 66.0 H* Creatinine 4.9 H D Glucose 244 H Calculated Osmolality 293 H Calcium 8.2 L AST Troponin I B-Natriuretic Peptide Albumin 3.2 L Globulin 3.8 H Albumin/Globulin Ratio 0.8 L Urine Protein Urine Ketones - Diagnostic Findings Chest x-ray: image reviewed (per HPI) Assessment and Plan - Assessment and Plan 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 On Pulmicort BID, A/A QID, could increase to q4hrs for wheezing, solumedrol 40mg q8hrs. CXR still with bibasilar infiltrates, cough with minimal sputum, add 3% BID, encourage deep breath and cough. Cr increasing, currently 4.9, e- lytes stable, primary spoke with patients commodity lead, and patient is currently refusing dialysis. Continue to follow for returning function. 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) Essential (primary) hypertension (Chronic Medical) Mixed hyperlipidemia (Chronic Medical) Type 2 diabetes mellitus without complications (Chronic Medical) CKD (chronic kidney disease) (Chronic Medical) COPD (chronic obstructive pulmonary disease) (Chronic Medical) Hospital-acquired pneumonia (Acute Medical) Hypoglycemia (Inactive Medical) Exam Vital signs: Temperature 98.1 F 05/07/17 12:00 Pulse Rate 68 05/07/17 13:00 Respiratory Rate 28 H 05/07/17 13:00 Blood Pressure 127/62 05/07/17 13:00 Pulse Oximetry 99 05/07/17 13:00 Results - Laboratory Findings CBC and BMP: 05/07/17 04:24 05/07/17 04:24 PT/INR, D-dimer D-Dimer 1002 NG/ML (0-230) H 05/02/17 12:41 Abnormal lab findings: Abnormal Labs 05/03/17 05/03/17 05/03/17 09:56 16:13 22:36 WBC RBC Hgb Hct Neutrophils % (Manual) Lymphocytes % (Manual) Neutrophils # (Manual) Lymphocytes # (Manual) Monocytes # (Manual) Potassium Carbon Dioxide Anion Gap BUN Creatinine Glucose Calculated Osmolality Calcium Phosphorus AST Troponin I 53.300 H 54.800 H 64.900 H B-Natriuretic Peptide Albumin Globulin Albumin/Globulin Ratio Urine Protein Urine Ketones 05/04/17 05/04/17 05/04/17 05:02 05:02 05:02 WBC 15.4 H RBC 3.52 L Hgb 9.9 L Hct 31.1 L Neutrophils % (Manual) 74.0 H Lymphocytes % (Manual) 19.0 L Neutrophils # (Manual) 11.4 H Lymphocytes # (Manual) Monocytes # (Manual) 1.1 H Potassium Carbon Dioxide Anion Gap BUN 53.0 H* Creatinine 2.9 H D Glucose 169 H Calculated Osmolality 291 H Calcium Phosphorus AST Troponin I 57.900 H B-Natriuretic Peptide Albumin Globulin Albumin/Globulin Ratio Urine Protein Urine Ketones 05/04/17 05/05/17 05/05/17 05:02 04:30 04:30 WBC 16.5 H RBC 3.39 L Hgb 9.5 L Hct 29.9 L Neutrophils % (Manual) Lymphocytes % (Manual) Neutrophils # (Manual) Lymphocytes # (Manual) Monocytes # (Manual) Potassium 3.5 L Carbon Dioxide Anion Gap BUN 60.0 H* Creatinine 3.9 H D Glucose 202 H Calculated Osmolality 292 H Calcium Phosphorus AST 61 H Troponin I B-Natriuretic Peptide 07072 H Albumin 3.2 L Globulin 3.8 H Albumin/Globulin Ratio 0.8 L Urine Protein Urine Ketones 05/05/17 05/06/17 05/06/17 18:49 03:59 04:44 WBC 15.0 H RBC 3.17 L Hgb 8.9 L Hct 28.0 L Neutrophils % (Manual) 97.0 H Lymphocytes % (Manual) 2.0 L Neutrophils # (Manual) 14.6 H Lymphocytes # (Manual) 0.3 L Monocytes # (Manual) Potassium Carbon Dioxide 19 L Anion Gap 16 H BUN 65.0 H* Creatinine 4.3 H D Glucose 181 H Calculated Osmolality 292 H Calcium Phosphorus AST Troponin I 37.200 H B-Natriuretic Peptide Albumin Globulin Albumin/Globulin Ratio Urine Protein 1+ A Urine Ketones Trace A 05/06/17 05/06/17 05/06/17 04:44 18:19 18:19 WBC RBC Hgb Hct Neutrophils % (Manual) Lymphocytes % (Manual) Neutrophils # (Manual) Lymphocytes # (Manual) Monocytes # (Manual) Potassium Carbon Dioxide 18 L 17 L Anion Gap 17 H 17 H BUN 66.0 H* 77.0 H* Creatinine 4.9 H D 5.9 H D Glucose 244 H 257 H Calculated Osmolality 293 H 292 H Calcium 8.2 L Phosphorus 8.9 H AST Troponin I B-Natriuretic Peptide Albumin 3.2 L Globulin 3.8 H Albumin/Globulin Ratio 0.8 L Urine Protein Urine Ketones 05/07/17 05/07/17 05/07/17 04:19 04:24 04:24 WBC 19.8 H RBC 3.18 L Hgb 8.9 L Hct 28.1 L Neutrophils % (Manual) 98.0 H Lymphocytes % (Manual) 2.0 L Neutrophils # (Manual) 19.4 H Lymphocytes # (Manual) 0.4 L Monocytes # (Manual) Potassium Carbon Dioxide 16 L Anion Gap 19 H BUN 84.0 H* Creatinine 6.6 H D Glucose 312 H Calculated Osmolality 298 H Calcium 8.3 L Phosphorus 9.5 H AST Troponin I B-Natriuretic Peptide Albumin 3.3 L Globulin 3.9 H Albumin/Globulin Ratio 0.8 L Urine Protein Urine Ketones - Diagnostic Findings Chest x-ray: report reviewed (RLL pneumonia/consolidation. no change on 05/07), image reviewed Assessment and Plan (1) Acute respiratory failure with hypoxemia Status: Acute Assessment and plan: Mr Roque is DNR. Currently using O2 by nc at 4 lpm but intermittently is tolerating BIPAP ventilation. We will continue BIPAP 05/11, rate 16, FIO2 30%. We will adjust IPAP/EPAP if necessary to maintain O2sat>90% and to relieve dyspnea associated with pneumonia and pulmonary edema. He will not be intubated per his request and if h8is symptoms worsen we will need to keep him as comfortable as possible with a combination of narcotics/benzodiazepines an BIPAP. At this point the greatest risk to his respiratory status is progressive pulmonary edema due to acute renal failure Current Visit: Yes (2) COPD (chronic obstructive pulmonary disease) Status: Chronic Assessment and plan: Quit smoking 40 years ago but still managed a 58 pack year history. On home O2 and Spiriva. Exam is compatible with airflow obstruction. Continue neb albuterol/ipratropium q4 and prn, O2 to keep sat > 90% and IV solumedrol at 40 iv q 8. Current Visit: Yes (3) Hospital-acquired pneumonia Status: Acute Assessment and plan: sputum culture demonstrating Klebsiella pneumoniae, sensitive to multiple antibiotics. Currently his is covered on IV Zosyn. We could deescalate his coverage at this point. CXR shows persistent, stable consolidation RLL. Will follow. Current Visit: Yes - Time Spent With Patient Total time spent is greater than 50% in coordination of care (as documented) at patient's floor/unit and/or counseling patient:
--- NOTE | 2017-05-06 14:23 | Cardiology Progress Note ---
<Leslie Zapien - Last Filed: 05/07/17 12:00> Subjective Principal diagnosis: NSTEMI Interval history: Ed is seen in follow up following NSTEMI and left heart cath 05/02/17 and . He is in bed, wearing Bi-Pap and his breathing is nonlabored at this time. His daughter and granddaughter are at the bedside. He still refuses hemodialysis and wants to wait and see how the kidney goes. He denies chest pain. Exam Vital signs: Temperature 97.6 F 05/06/17 12:05 Pulse Rate 66 05/06/17 12:30 Respiratory Rate 30 H 05/06/17 12:30 Blood Pressure 124/59 05/06/17 12:05 Pulse Oximetry 96 05/06/17 12:30 - Constitutional no acute distress, well nourished, cooperative - Routine HEENT Exam Head: Present: normocephalic ENT: Present: mucous membranes moist - Routine Neck Exam Absent: JVD, carotid bruit - Routine Chest/Breast/Axilla Exam Chest wall: Absent: tenderness - Routine Respiratory Exam Present: CTA bilaterally. Absent: rales, wheezes - Routine Cardiovascular Exam Present: no murmur, tachycardia. Absent: JVD - Routine Abdominal Exam Present: soft, normoactive bowel sounds - Routine Extremities Exam Present: no edema - Routine Skin Exam Present: intact, dry, warm - Routine Neurological Exam Present: alert, oriented X3 - Routine Psychiatric Exam Present: normal affect, normal thought process Results 05/06/17 04:44 05/06/17 04:44 Cardiac Enzymes 05/05/17 05/06/17 Range/Units 18:49 04:44 AST 37 (17-59) U/L Troponin I 37.200 H (0-0.12) ng/ml CBC 05/06/17 Range/Units 04:44 WBC 15.0 H (4.5-11.0) T/MM3 RBC 3.17 L (4.50-5.90) M/MM3 Hgb 8.9 L (13.5-17.5) GM/DL Hct 28.0 L (41-53) % Plt Count 373 (130-400) T/MM3 Neut # (Auto) Not performed Lymph # (Auto) Not performed [place] # (Auto) Not performed Eos # (Auto) Not performed Baso # (Auto) Not performed Comprehensive Metabolic Panel 05/05/17 05/06/17 Range/Units 18:49 04:44 Sodium 139 138 (134-144) MEQ/L Potassium 3.8 4.2 (3.6-5) MEQ/L Chloride 104 103 (98-107) MEQ/L Carbon Dioxide 19 L 18 L (22-30) MEQ/L BUN 65.0 H* 66.0 H* (9-20) MG/DL Creatinine 4.3 H D 4.9 H D (0.8-1.5) MG/DL Glucose 181 H 244 H (75-110) MG/DL Calcium 8.4 8.2 L (8.4-10.2) MG/DL Unconjugated Bilirubin 0.10 (0.00-1.1) MG/DL AST 37 (17-59) U/L ALT 39 (21-72) U/L Alkaline Phosphatase 95 (38-126) U/L Total Protein 7.0 (6.3-8.2) G/DL Albumin 3.2 L (3.5-5.0) G/DL Intake and Output 05/05/17 05/06/17 05/06/17 22:59 06:59 14:59 Intake Total 1028.333 / 1028.333 283.333 / 283.333 460 / 460 Output Total 50 / 50 Balance 978.333 / 978.333 283.333 / 283.333 460 / 460 Intake: IV 728.333 / 728.333 283.333 / 283.333 100 / 100 Ns 1,000 ml @ 100 mls/hr 628.333 / 628.333 183.333 / 183.333 IV .Q10H DANDRE Rx#: [id number] Piperacillin/Tazobactam 2 100 / 100 100 / 100 100 / 100 .25 gm In Ns 100 ml @ 200 mls/hr IV Q8H DANDRE Rx#: [id number] Oral 300 / 300 360 / 360 Output: Urine 50 / 50 Stool 0 / 0 Emesis 0 / 0 Other: Urine Appearance Clear Urine Color Light [place] Weight 182 lb 5.156 oz Patient Weight 05/07/17 06:59 Weight 182 lb 5.156 oz - Imaging and Cardiology Imaging & Cardiology Narrative: Date of Exam: 05/06/17 Ordering Provider: Willy Hill MD Type of Exam(s): XR chest 1V Reason for Exam(s): hypoxia Indication: hypoxia PROCEDURE: XR chest 1V: Encounter: Initial Comparison: May 04, 2017 Findings: Continued airspace consolidation in the right lower lobe without significant change. No new areas of airspace disease. No pneumothorax or significant pleural effusion. Heart size and mediastinal contours are stable. Pulmonary vascular congestion has improved. Impression: Improved pulmonary vascular congestion with continued right lower lobe pneumonia. 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 BROOKS last 2 weeks. - Troponin elevated to 3.300, repeat 3.110 - EKG with ST depression in precordial leads, ST elevation in lead III. 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 Hill, we appreciate your assistance CKD (chronic kidney disease) BUN 50/ CR 2.5 COPD (chronic obstructive pulmonary disease) Exacerbation versus pneumonia. Consult Dr. Hill, thank you for your assistance. 05/03/17 Left heart cath revealed vein graft to RCA occluded. Ballooned and Integrilin drip overnight. Continue Aspirin and Brilinta for dual anti-platelet therapy, continue home BB Plan repeat cath with possible stent placement this afternoon. trend serial troponin Bumex 2mg IV Q6h for diuresis Change simvastatin to Atorvastatin 80mg daily 05/04/17 NSTEMI: Stop Integrilin at noon. Continue Aspirin and Brilinta - Troponin trending downward. Creatinine 2.9 today, hold Bumex, get BNP and CXR - remains on 6L/NC - Change Bumex to 2mg IV Q 12h starting tomorrow - change Atenolol to Metoprolol due to renal function 05/05/17 - Stop Brilinta as can cause SOA. Change to Plavix - Stop Beta froylan due to dyspnea - Morphine 2mg IV Q2H for air hunger as needed Creatinine up to 3.9 today - Start NS at 100mL/H - Hold Bumex - Repeat BMP now and in am 05/06/17 Creatinine up to 4.9 today, Continues to refuse Dialysis, IVF stopped. Respiratory much improved with Bi-PAP and pulmonology's recommendations, thank you for your assistance. Hospital Course Summary Disclaimer: The visit summary below is not to be considered part of the above Progress Note. 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 I am involved in the formulation of the patient's plan of care. Hospital Course Summary Disclaimer: The visit summary below is not to be considered part of the above Progress Note.
[2017-05-06] MEDS: SODIUM BICARBONATE 650 MG TABLET PO SCH ×2 (15:43→21:19)
--- NOTE | 2017-05-06 19:01 | Progress Note ---
- Date 05/06/17 Subjective: patient doing better today. shortness of air significantly improved from yesterday. no chest pain since last visit per patient. no altered mentation/ sensorum/alertness. no confusion. no headaches, stroke symptoms, syncope, dizziness, falls, trauma, injuries, vision changes, URI symptoms, sinus issues, skin changes, new rashes. exertional tolerance is better than yesterday but still significant SOA on exertion. no wheezing today. no orthopnea, PND, new edema, leg asymmetery. patient euvolemic from a symptomatic standpoint at this time. very little cough and no sputum production. no hemoptysis. no abdominal pain, GERD symptoms, nausea, vomiting, diarrhea, constipation, bloody/ black stools, hematemesis, coffee ground emesis, melena, BRBPR, dysphagia. no focal neurologic deficits. no palpitations. eating ok. making very little in the way of urine at this time. no dysuria, hematuria, anuria, urinary/bowel incontinance, flank pain, other urinary symptoms. no urinary incontinance symptoms. no mood changes from previous. family present for some of encounter today. no events called to me on telemetry. no acute issues otherwise called overnight. no new issues otherwise at this time. Objective Vital signs: Temperature 97.6 F 05/06/17 12:05 Pulse Rate 63 05/06/17 16:00 Respiratory Rate 24 05/06/17 16:44 Blood Pressure 116/71 05/06/17 16:00 Pulse Oximetry 98 05/06/17 16:44 Rhythm: Normal Sinus Rhythm Height/Weight/BMI: Weight 82.7 kg - Constitutional Present: no acute distress, cooperative. Absent: cachectic, diaphoretic, disheveled, combative, agitated, somnolent, obtunded - Routine HEENT Exam Head: Present: normocephalic, atraumatic ENT: Present: mucous membranes moist - Routine Respiratory Exam Present: CTA bilaterally. Absent: accessory muscle use, patient mechanically ventilated, dyspnea, decreased breath sounds, prolonged expiratory phase, rales , respiratory distress, rhonchi, stridor, wheezes, crackles, distant breath sounds, diminished air movement Comments: lung sounds heard in all lung arambula b/l at this time. - Routine Cardiovascular Exam Comments: cardiac exam unchanged from previous. no new edema in LE's at this time. extremities warm and clinically well perfused in all 4 extremities b/l at this time. legs symmetrical and compartments soft b/l in LE's at this time. - Routine Abdominal Exam Present: soft (X4.), normoactive bowel sounds (X4.), non distended (X4.), non tender (X4.). Absent: tenderness (X4.), distended (X4.), rebound, guarding, firm, rigid, organomegaly, mass Comments: no ascites or jaundice. - Routine Exam Comments: no tenderness over bladder area. no clinical evidence of upper urinary trace information at this time. - Routine Extremities Exam Absent: cyanosis, joint swelling, pallor, extremity cold to touch Comments: see above. patient is clinically euvolemic at this time. - Routine Back/Spine/Pelvis Exam Comments: see the above. - Routine Musculoskeletal Exam Musculoskeletal: Present: no joint swelling, moving extremities well. Absent: joint erythera, joint swelling - Routine Skin Exam Present: intact Comments: no skin changes to uncovered tianna at this time. - Routine Neurological Exam Present: alert, oriented X3 no new neurologic changes from usual baseline. no photophobia. no clinical evidence of meningitis at this time. no clinical evidence of delerium, ashley, depression, anxiety, altered mentation/sensorum/alertness. no confusion. no clinical evidence of psychosis at this time. no personality changes from usual baseline. - Routine Lymphatic Exam Lymphatic: Absent: lymphedema - Routine Psychiatric Exam Present: normal affect, normal thought process, cooperative, good insight, good judgment. Absent: auditory hallucinations, visual hallucinations, tactile hallucinations, depressed, anxious, agitated, paranoid, manic Comments: affect and cognition unchanged from patient's usual baseline. Results - Labs CBC & Chem 7: 05/06/17 04:44 05/06/17 18:19 Microbiology Results: Microbiology 05/03/17 09:55 Sputum, Expectorated Gram Stain - Final 05/03/17 09:55 Sputum, Expectorated Sputum Culture - Final Klebsiella pneumoniae Normal Respiratory Annita Assessment and Plan Assessment and Plan: acute NSTEMI s/p ballooning to graft to RCA on 05/02/17. X2 drug eluting stents placed 05/03/17 acute contrast and diuresis induced acute tubular necrosis, contrast nephropathy and acute kindey injury. hospital acquired pneumonia and severe sepsis from [place]-sensitive klebsiella pneumonia multifactorial acute hypoxic respiratory failure secondary to the above T2DM chronic multifactorial anemia leukocytosis secondary to the above. HTN chronic kidney disease hyperlipidemia hypothyroid recent episodes of hypoglycemia -vital signs, telemetry, oxygen, cardiac diet, continuous pulse oximetry and other admission orders per cardiology. cath site orders and monitoring per cardiology. vitals and ICU care per cardiology. continue current oxygen and use BIPAP an other non-invasive respiratory support as needed and as tolerated. patient currently on about 3 to 4 liters. significant clinical improvement noted today. no clinical evidence of active bleeding noted. -cbc's with hgb down to 8.5 and hct down accordingly as well. otherwise cbc unremarkable. cmp with cre up to 4.9 and BUN up accordingly as well. bicarb about 19 and something of anion gap started. otherwise cmp unremarkable. GLUBS generally in 100's with outlier in 200's. mag normal. wbc count has improved some. EKG's and CXR's have been stable in general. troponins trending down into the 30's. b/l renal u/s and PVR unremarkable. oliguia noted now. he is not anuric at this time. UA yesterday normal except for trace keteones. mycoplasma serologies unremarkable. see previous notes for other testing and results from this stay. -blood cultures X2 negative thus far but are still officially pending. -cbc, cmp, mg, phos in the AM. follow EKG's and CXR's per cardiology. patient clinically euvolemic at this time. follow basic metabolic panel, mg, phos this evening. -continue current brilinta, ASA, synthroid, statin, beta-froylan, calcitriol , procardia, GLUBS, hypoglycemia protocol, IV zosyn (day 4), IV bumex, tylenol prn, dulcolax prn, morphine prn, zofran prn, atropine prn per cardiology, fish oil, nitroglycerin, tessalon perles, duonebs scheduled QID, pulmicort nebs, IV solumedrol, novolog s/s at this time. started sodium bicarbonate. continue current IV protonix for the time being. -cardiology primary. cardiac rehab consulted. infectious disease, Dr. Yancey consulted. rehab consulted. speech therapy consulted. 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 agrees with current care and with sodium bicarb noted in above. -further management pending above. all other chronic medical conditions stable and no changes to plan of care at this time. ppx -continue SQ heparin for DVT ppx. -PO diet and IV ppi for GI ppx for now. -DNR/DNI. -dispo see yesteday's notes for detail. patient still insists on DNR/DNI and no short term or assistant terminal manager dialysis no matter what and this limits us but we will certainly abide by his wishes in this regard. we will continue current plan of care and hope renal function turns around. see previous notes for other conversation on care of this patient. Hospital Course Summary Disclaimer: The visit summary below is not to be considered part of the above Progress Note.
[2017-05-06] MEDS: ATORVASTATIN 40 MG TABLET PO SCH (21:19)
[2017-05-07] MEDS: HEPARIN SUB-Q 5,000units/0.5ml INJECTION SQ SCH ×3 (00:38→17:35)
[2017-05-07] MEDS: METHYLPREDNISOLONE SOD SUCC 40mg/ml INJECTION IVP SCH ×3 (00:38→17:46)
[2017-05-07] MEDS: ALBUTEROL/IPRATROPIUM 2.5mg-0.5mg/3ml NEB AEROSOL SCH ×6 (01:02→20:56)
[2017-05-07] MEDS: BUDESONIDE INH.SOLN 0.5mg/2ml NEB AEROSOL SCH ×3 (01:03→20:56)
[2017-05-07] MEDS: PIPERACILLIN/TAZOBACTAM 2.25 GM in NS 100 ML IV SCH ×3 (04:31→19:51)
[2017-05-07] MEDS: SODIUM CL 3% INHAL.SOLN 15ml NEB AEROSOL SCH ×2 (04:59→16:10)
[2017-05-07] MEDS: LEVOTHYROXINE 50 MCG TABLET PO SCH (05:59)
[2017-05-07] MEDS: INSULIN ASPART 100unit/ml INJECTION SQ PRN ×4 (06:15→21:24)
[2017-05-07] MEDS: CLOPIDOGREL 75 MG TABLET PO SCH (08:41)
[2017-05-07] MEDS: CALCITRIOL 0.25 MCG CAPSULE PO SCH (08:41)
[2017-05-07] MEDS: OMEGA-3 ACID ESTERS 1 GM CAPSULE PO SCH ×2 (08:42→20:42)
[2017-05-07] MEDS: SODIUM BICARBONATE 650 MG TABLET PO SCH ×3 (08:42→20:41)
[2017-05-07] MEDS: SALINE FLUSH 10ml SYRINGE IVF PRN ×5 (08:44→17:46)
[2017-05-07] MEDS: BENZONATATE 100 MG CAPSULE PO SCH ×3 (08:47→20:42)
[2017-05-07] MEDS: ASPIRIN *EC* 81 MG TABLET PO SCH (08:53)
[2017-05-07] MEDS: PANTOPRAZOLE 40 MG INJECTION IVP SCH (09:01)
--- NOTE | 2017-05-07 12:47 | Cardiology Progress Note ---
<Leslie Zapien - Last Filed: 05/08/17 16:25> Subjective Principal diagnosis: NSTEMI Interval history: Ed is seen in follow up following NSTEMI and left heart cath 05/02/17 and . He is in bed, wearing Bi-Pap and his breathing is nonlabored at this time. He is able to speak to me without any difficulty. I discussed with him at length the option of temporary hemodialysis to try and remove some waste and he agrees to discuss it further with his daughter who is his DPOA. He denies chest pain or dyspnea. Exam Vital signs: Temperature 96.8 F 05/06/17 23:00 Pulse Rate 71 05/07/17 06:00 Respiratory Rate 24 05/07/17 12:10 Blood Pressure 124/60 05/07/17 06:00 Pulse Oximetry 94 05/07/17 12:10 - Constitutional no acute distress, well nourished, cooperative - Routine HEENT Exam Head: Present: normocephalic ENT: Present: mucous membranes moist - Routine Neck Exam Absent: JVD, carotid bruit - Routine Chest/Breast/Axilla Exam Chest wall: Absent: tenderness - Routine Respiratory Exam Present: CTA bilaterally, diminished air movement - Routine Cardiovascular Exam Present: RRR. Absent: JVD - Routine Abdominal Exam Present: soft, normoactive bowel sounds - Routine Extremities Exam Present: no edema - Routine Skin Exam Present: intact, dry, warm - Routine Neurological Exam Present: alert, oriented X3 - Routine Psychiatric Exam Present: normal affect, normal thought process - Additional findings Additional findings: Acetaminophen (Tylenol) 650 mg PO Q6H PRN PRN Reason: Pain Last Admin: 05/04/17 10:27 Dose: 650 mg Albuterol/Ipratropium (Duoneb) 3 ml AEROSOL Q2H PRN Last Admin: 05/06/17 05:15 Dose: 3 ml Albuterol/Ipratropium (Duoneb) 3 ml AEROSOL Q4HR [facility] [place] Last Admin: 05/07/17 12:10 Dose: 3 ml Aspirin (Ecotrin) 81 mg PO DAILY [facility] [place] Last Admin: 05/07/17 08:53 Dose: 81 mg Atorvastatin Calcium (Lipitor) 80 mg PO HS [facility] [place] Last Admin: 05/06/17 21:19 Dose: 80 mg Atropine Sulfate (Atropine) 0.5 mg IVP Q5M PRN PRN Reason: Bradycardia Benzonatate (Tessalon Perles) 100 mg PO TID [facility] [place] Last Admin: 05/07/17 08:47 Dose: 100 mg Bisacodyl (Dulcolax) 5 - 10 mg PO DAILY PRN PRN Reason: Constipation Budesonide (Pulmicort Inhalation) 0.5 mg AEROSOL RTBID [facility] [place] Last Admin: 05/07/17 07:49 Dose: 0.5 mg Bumetanide (Bumex Inj) 2 mg IVP BID [facility] [place] Last Admin: 05/05/17 08:59 Dose: 2 mg Calcitriol (Rocaltrol) 0.25 mcg PO DAILY [facility] [place] Last Admin: 05/07/17 08:41 Dose: 0.25 mcg Clopidogrel Bisulfate (Plavix) 75 mg PO DAILY [facility] [place] Last Admin: 05/07/17 08:41 Dose: 75 mg Dextrose (D50%W) 10 - 20 ml IVP PRN PRN PRN Reason: Hypoglycemia Glucose (Glutose 15) 37.5 gm PO PRN PRN PRN Reason: Hypoglycemia Heparin Sodium (Porcine) (Heparin Sq) 5,000 units SQ Q8HR [facility] [place] Last Admin: 05/07/17 08:54 Dose: 5,000 units Nitroglycerin (Nitroglycerin Drip) 50 mg in 250 mls @ 1.5 mls/hr IV .Q24H PRN; 5 MCG/MIN PRN Reason: Protocol Last Titration: 05/03/17 17:00 Dose: Infused Piperacillin Sod/Tazobactam (Sod 2.25 gm/ Sodium Chloride) 100 mls @ 200 mls/ hr IV Q8H [facility] [place] Last Admin: 05/07/17 11:33 Dose: 200 mls/hr Insulin Aspart (Novolog) 0 unit SQ SS PRN PRN Reason: Protocol Last Admin: 05/07/17 11:31 Dose: 10 unit Levothyroxine Sodium (Synthroid) 50 mcg PO ACB [facility] [place] Last Admin: 05/07/17 05:59 Dose: 50 mcg Methylprednisolone Sodium Succinate (Solu-Medrol) 40 mg IVP Q8HR [facility] [place] Last Admin: 05/07/17 08:44 Dose: 40 mg Morphine Sulfate (Morphine Sulfate Inj) 2 mg IVP Q2HR PRN PRN Reason: Air hunger Last Admin: 05/05/17 16:31 Dose: 2 mg Nifedipine (Procardia Xl) 90 mg PO DAILY [facility] [place] Last Admin: 05/07/17 08:58 Dose: 90 mg Nitroglycerin (Nitrostat) 0.4 mg SL Q5MIN3 PRN PRN Reason: Angina [id number] Ethyl Esters (Lovaza) 1 gm PO BID [facility] [place] Last Admin: 05/07/17 08:42 Dose: 1 gm Ondansetron HCl (Zofran) 4 mg IVP Q6H PRN PRN Reason: Nausea &/or vomiting Pantoprazole Sodium (Protonix Iv) 40 mg IVP DAILY [facility] [place] Last Admin: 05/07/17 09:01 Dose: 40 mg Sodium Bicarbonate (Sodium Bicarbonate) 1,300 mg PO TID [facility] [place] Last Admin: 05/07/17 08:42 Dose: 1,300 mg Sodium Chloride (Iv Flush) 10 - 80 ml IVF PRN PRN PRN Reason: Flushing Last Admin: 05/07/17 11:39 Dose: 10 ml Sodium Chloride (Sodium Chloride 3% Inhal) 15 ml AEROSOL BID [facility] [place] Last Admin: 05/07/17 04:59 Dose: Not Given Results 05/07/17 04:24 05/07/17 18:00 Cardiac Enzymes 05/07/17 Range/Units 04:24 AST 34 (17-59) U/L CBC 05/07/17 Range/Units 04:24 WBC 19.8 H (4.5-11.0) T/MM3 RBC 3.18 L (4.50-5.90) M/MM3 Hgb 8.9 L (13.5-17.5) GM/DL Hct 28.1 L (41-53) % Plt Count 398 (130-400) T/MM3 Neut # (Auto) Not performed Lymph # (Auto) Not performed [place] # (Auto) Not performed Eos # (Auto) Not performed Baso # (Auto) Not performed Comprehensive Metabolic Panel 05/06/17 05/07/17 Range/Units 18:19 04:24 Sodium 135 135 (134-144) MEQ/L Potassium 4.5 4.6 (3.6-5) MEQ/L Chloride 101 100 (98-107) MEQ/L Carbon Dioxide 17 L 16 L (22-30) MEQ/L BUN 77.0 H* 84.0 H* (9-20) MG/DL Creatinine 5.9 H D 6.6 H D (0.8-1.5) MG/DL Glucose 257 H 312 H (75-110) MG/DL Calcium 8.4 8.3 L (8.4-10.2) MG/DL Unconjugated Bilirubin 0.00 (0.00-1.1) MG/DL AST 34 (17-59) U/L ALT 39 (21-72) U/L Alkaline Phosphatase 108 (38-126) U/L Total Protein 7.2 (6.3-8.2) G/DL Albumin 3.3 L (3.5-5.0) G/DL Intake and Output 05/06/17 05/07/17 05/07/17 22:59 06:59 14:59 Intake Total 340 / 340 340 / 340 Output Total 0 / 0 Balance 340 / 340 340 / 340 Intake: IV 100 / 100 100 / 100 Piperacillin/Tazobactam 2 100 / 100 100 / 100 .25 gm In Ns 100 ml @ 200 mls/hr IV Q8H [facility] Rx#: [id number] Oral 240 / 240 240 / 240 Output: Urine 0 / 0 Assessment and Plan - Assessment and Plan (1) NSTEMI (non-ST elevated myocardial infarction) Status: Acute (2) 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 BROOKS last 2 weeks. - Troponin elevated to 3.300, repeat 3.110 - EKG with ST depression in precordial leads, ST elevation in lead III. 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 Hill, we appreciate your assistance CKD (chronic kidney disease) BUN 50/ CR 2.5 COPD (chronic obstructive pulmonary disease) Exacerbation versus pneumonia. Consult Dr. Hill, thank you for your assistance. 11/28/17 Left heart cath revealed vein graft to RCA occluded. Ballooned and Integrilin drip overnight. Continue Aspirin and Brilinta for dual anti-platelet therapy, continue home BB Plan repeat cath with possible stent placement this afternoon. trend serial troponin Bumex 2mg IV Q6h for diuresis Change simvastatin to Atorvastatin 80mg daily 05/04/17 NSTEMI: Stop Integrilin at noon. Continue Aspirin and Brilinta - Troponin trending downward. Creatinine 2.9 today, hold Bumex, get BNP and CXR - remains on 6L/NC - Change Bumex to 2mg IV Q 12h starting tomorrow - change Atenolol to Metoprolol due to renal function 05/05/17 - Stop Brilinta as can cause SOA. Change to Plavix - Stop Beta froylan due to dyspnea - Morphine 2mg IV Q2H for air hunger as needed Creatinine up to 3.9 today - Start NS at 100mL/H - Hold Bumex - Repeat BMP now and in am 05/06/17 Creatinine up to 4.9 today, Continues to refuse Dialysis, IVF stopped. Respiratory much improved with Bi-PAP and pulmonology's recommendations, thank you for your assistance. 05/07/17 Creatinine up to 6.6 today, discussed with patient the option of dialysis again. He plans to discuss with his daughter/ DPOA later. Ed was examined by me and finding discussed with Dr. Back, we are in agreement with the patient's plan of care. Hospital Course Summary Disclaimer: The visit summary below is not to be considered part of the above Progress Note. 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 I am involved in the formulation of the patient's plan of care. Hospital Course Summary Disclaimer: The visit summary below is not to be considered part of the above Progress Note.
[2017-05-07] MEDS ORDERED: CALCIUM ACETATE 667 MG CAPSULE PO SCH (17:30)
[2017-05-07] MEDS ORDERED: SODIUM CL 3% INHAL.SOLN 15ml NEB AEROSOL SCH (20:03)
[2017-05-07] MEDS: ATORVASTATIN 40 MG TABLET PO SCH (20:42)
--- NOTE | 2017-05-07 21:27 | Progress Note ---
- Date 05/07/17 Subjective: patient feels well. breathing improved some from yesterday. on 4 to 5 liters NC and gets BIPAP intermittently at times as well but is holding his own. still tachypenic with RR's in the 30's but he's no longer using any accessory muscles and doesn't feel as though he's tiring out. cough about the same. no production. no headaches, stroke symptoms, focal neurologic deficits. no changes in baseline fatigue/weakness although when asked again later he notes he thinks he may feel a little stronger than yesterday. no URI symptoms, sinus issues, dizziness, syncope. appetite ok but he doesn't like that his food is so bland. no chest pain. he is now completely anuric today. after consultation with his family he does decide tonight he wants to pursue dialysis. no altered mentation, tremors, obtundation and ROS negative for symptoms consistent with uremia. no palpitations, hemoptysis. no symptoms consistent with fluid overload or new edema. no seizure symptoms, falls, trauma , injuries. no vision changes. no cranial nerve symptoms. no abdominal pain, nausea, vomiting, diarrhea, constipation, bloody/black stools, GERD symptoms. no hematemesis, coffee ground emesis, melena, BRBPR. no dysuria. no flank pain. no other urinary symptoms other than as noted. no mood changes or depression symptoms. no new skin changes or rashes. no new joint aches or musculoskeletal issues. no events called on telemetry. no acute issues overnight. numerous sons and daughters present for most of encounter today. no new issues otherwise at this time. Objective Vital signs: Temperature 97.5 F 05/07/17 16:00 Pulse Rate 71 05/07/17 18:00 Respiratory Rate 36 H 05/07/17 18:00 Blood Pressure 127/66 05/07/17 18:00 Pulse Oximetry 99 05/07/17 18:00 Rhythm: Normal Sinus Rhythm Height/Weight/BMI: Weight 87.5 kg - Constitutional Present: no acute distress, cooperative. Absent: cachectic, diaphoretic, disheveled, combative, agitated, somnolent, obtunded - Routine HEENT Exam Head: Present: normocephalic, atraumatic Eye: Absent: periorbital swelling, nystagmus ENT: Present: mucous membranes moist Comments: patient is clinically euvolemic at this time. - Routine Respiratory Exam Present: dyspnea (RR about 32 per minutes upon my encounter.), CTA bilaterally. Absent: accessory muscle use, patient mechanically ventilated, decreased breath sounds, prolonged expiratory phase, rales, respiratory distress, rhonchi , stridor, wheezes, crackles, distant breath sounds, diminished air movement - Routine Cardiovascular Exam Comments: cardiac exam unchanged from previous. no new edema. no leg asymmetry. compartments soft and symmetrical b/l in LE's at this time. clinically well perfused in all 4 extremities at this time. no malfunction or issues with IV sites at this time. pulses normal X4 extremities at this time. - Routine Abdominal Exam Present: soft (X4.), normoactive bowel sounds (X4.), non distended (X4.), non tender (X4.). Absent: tenderness (X4.), distended (X4.), rebound, guarding, firm, rigid, organomegaly, mass Comments: no ascites or jaundice. - Routine Exam Comments: no tenderness over bladder area. no clinical evidence of upper UTI at this time. - Routine Extremities Exam Present: pulses intact. Absent: cyanosis, joint swelling, pallor, extremity cold to touch - Routine Back/Spine/Pelvis Exam Comments: see the above. - Routine Musculoskeletal Exam Musculoskeletal: Present: no joint swelling, no tenderness, no erythema, moving extremities well. Absent: joint erythera, joint swelling - Routine Skin Exam Present: intact Comments: see the above. no changes from previous to uncovered areas. - Routine Neurological Exam Present: alert, oriented X3 neurologically at his usual baseline at this time X4 extremities. affect and cognition unchanged from his usual baseline. no clinical evidence of delerium, ashley, confusion, poor concentration, altered mentation/sensorum/alertness, psychosis, hallucinations, delusions at this time. he is certainly able to make his own decisions at this time. no photophobia. no clinical evidence of meningitis at this time. no tremors. no clinical evidence of uremia at this time. - Routine Lymphatic Exam Lymphatic: Absent: lymphedema - Routine Psychiatric Exam Present: normal affect, normal thought process, cooperative, good insight, good judgment. Absent: suicidal ideation, homicidal ideation, auditory hallucinations, visual hallucinations, tactile hallucinations, depressed, anxious, agitated, paranoid, manic Comments: see the above. Results - Labs CBC & Chem 7: 05/07/17 04:24 05/07/17 18:00 Microbiology Results: Microbiology 05/03/17 09:55 Sputum, Expectorated Gram Stain - Final 05/03/17 09:55 Sputum, Expectorated Sputum Culture - Final Klebsiella pneumoniae Normal Respiratory Annita Assessment and Plan Assessment and Plan: acute NSTEMI s/p ballooning to graft to RCA on 05/02/17. X2 drug eluting stents placed 05/03/17 acute contrast and diuresis induced acute tubular necrosis, contrast nephropathy and acute kidney injury. hospital acquired pneumonia and severe sepsis from [place]-sensitive klebsiella pneumonia multifactorial acute hypoxic respiratory failure secondary to the above hyperphosphatemia and high anion gap metabolic acidosis from acute on chronic renal insufficiency T2DM chronic multifactorial anemia steroid induced leukocytosis chronic kidney disease with baseline creatinine around 2.0 hyperlipidemia hypothyroid recent episodes of hypoglycemia -patient now wishing to give dialysis a try. will transfer to [facility]. continue current oxygen and intermitant BIPAP. patient currently on 4 liters. no clinical evidence of uremia. patient completely anuric today. patient is clinically euvolemic at this time. -cbc's with stable hgb in 8's and hct about the same. wbc elevated to 18, 000 but this is likely from steroids. otherwise cbc's unremarkable. cmp's and bmp's now with cre up to 7.7. calcium 8.0 but albumin a bit low. bicarb hovering in mid-teen's for the last couple of draws and anion gap in high teens as well over last couple of draws. phos now at about 10.7. magnesiums have been ok. EKG's and CXR's stable in general. GLUBS range from 100's to 300's. troponins trending down. see previous notes for other testing and results from this stay. -blood cultures X2 negative thus far but are still officially pending -continue current plavix, ASA, synthroid, statin, calcitriol, procardia, GLUBS, hypoglycemia protocol, IV zosyn (day 5), IV bumex, tylenol prn, dulcolax prn, morphine prn, zofran prn, atropine prn per cardiology, fish oil, nitroglycerin, tessalon perles, duonebs scheduled QID, saline nebulizer, pulmicort nebs, IV solumedrol, high dose novolog s/s, IV protonix, sodium bicarb at this time. started PhosLo today. -beta froylan on hold as Dr. Back hoped it would help his bronchospasm. it appears it has. patient cannot have SCOTT inhibitor secondary to renal dysfunction. -cardiology (Wong), infectious disease ([facility]), pulmonology (Dr. Guevara ) have seen and followed patient during this stay. speech therapy consulted. rehab consulted as well and PT/OT have worked with patient as well. Dr. Leyva is patient's processing lead and he has graciously been available by phone for questions. all other chronic medical conditions stable and no changes to plan of care at this time. ppx -continue SQ heparin for DVT ppx. -PO diet and IV ppi for GI ppx for now. -DNR/DNI. -dispo patient wishing to pursue dialysis now. transfer to [facility] as above care of Dr. Becky Esquivel of the hospitalist team there. doctor to doctor sign out has been performed. DVT Prophylaxis: SCD's, SQ Heparin GI Prophylaxis: Protonix, other (continue current PO diet.) Resuscitation Status: Do Not Resuscitate (DNR/DNI.) - Time spent with patient Time with patient PN: 50 minutes Sepsis Assessment - Evaluation Possible source: pulmonary SIRS Criteria: WBC > or equal to 12,000, RR > or equal to 20 Severe Sepsis: cardiac dysfunction, SpO2 <90% or ventilated
[2017-05-07 22:16] VITALS: TEMP 97.8
[2017-05-07 22:18] VITALS: BP 126/71; PULSE 70; RESP 32; O2SAT 97
--- NOTE | 2017-05-08 09:22 | XRay Report ---
Indication: pneumonia PROCEDURE: XR chest 1V: Encounter: Initial Comparison: May 06, 2017 Findings: Continued airspace consolidation in the right lung base. Mild motion artifact. Pulmonary vascularity is mildly congested. Air bronchograms and bronchial wall thickening in the upper lobes. No pneumothorax. Cardiac silhouette and mediastinal contours are stable. Prior CABG. Impression: Continued right-sided pneumonia with mild pulmonary edema. .
--- NOTE | 2017-05-09 08:49 | Transfer Summary ---
DISCHARGE/TRANSFER SUMMARY MODE OF ADMISSION Inpatient and ICU. ATTENDING PHYSICIAN Attending physician for the first 5 days of the patient's stay was Dr. Back of Cardiology and this was switched to Dr. Hill right on discharge. DATE OF ADMISSION 05/02/2017 DATE OF DISCHARGE 05/07/2017 ANCILLARY SERVICES WHILE HERE Physical Therapy did see and work with the patient. Speech Therapy was also consulted CONSULTING PHYSICIANS WHILE HERE Dr. Martinez of Pulmonology as well as Dr. Stefanie Yancey of Infectious Disease as well as myself, Dr. Hill. Of course, Dr. Hill became primary on the last day. DISCHARGE DIAGNOSES 1. Acute non-ST elevation myocardial infarction status post ballooning to the patient's graft to his right coronary artery on 05/02/2017. The patient did have x 2 drug-eluding stents placed on 05/03/2017. 2. Acute contrast and diuresis-induced acute tubular necrosis, contrast nephropathy and acute kidney injury. The patient is anuric. 3. Hospital-acquired pneumonia and severe sepsis from pansensitive Klebsiella pneumonia. 4. Ischemic cardiomyopathy and bbyal-hy-jwbbgtd systolic congestive heart failure with an ejection fraction of 40%. 5. Multifactorial acute hypoxic respiratory failure secondary to the above. 6. Xiuba-ku-epaatho COPD exacerbation. 7. Hyperphosphatemia and elevated anion gap metabolic acidosis from acute-on- chronic renal insufficiency as noted above. 8. Type 2 diabetes. 9. Chronic multifactorial anemia. 10. Steroid-induced leukocytosis. 11. Chronic kidney disease with baseline creatinine around 2.0. 12. Hypothyroidism. 13. Recent, rather frequent episodes of hypoglycemia. 14. Nonspecific AST elevation during the stay which has since resolved. The patient is discharged and transferred to [facility] under the care of Dr. Becky Esquivel of the [facility] hospitalist service there. Doctor-to- doctor has been completed. Condition is stable. DISCHARGE MEDICATIONS 1. DuoNeb q.4h. scheduled. 2. DuoNeb q.2h. p.r.n. breakthrough shortness of air. 3. Tessalon Perles 100 mg p.o. t.i.d. 4. Dulcolax 5-10 mg p.o. daily p.r.n. constipation. 5. Bumex 2 mg IV b.i.d. 6. PhosLo 1,334 mg p.o. t.i.d. with meals. 7. D50, 10-20 ml IV p.r.n. hypoglycemia. 8. Glucose Orajel 40%, 37.5 g p.o. as needed for hypoglycemia. 9. NovoLog high-dose sliding scale as needed for hyperglycemia. 10. Solu-Medrol 40 mg IV q.8h. 11. Nitrostat, 0.4 mg sublingual q. 5 minutes x 3 p.r.n. chest pain. 12. Protonix 40 mg IV daily. 13. Sodium bicarbonate 1300 mg p.o. t.i.d. 14. Sodium chloride 3% 15 ml nebulizer inhaled b.i.d. 15. Zosyn 2.25 g IV q.8h. The patient is on day 5 of this. 16. Tylenol 650 mg p.o. q.6h. p.r.n. pain. 17. Atropine 0.5 mg IV push q. 5 minutes p.r.n. bradycardia. He has not required this. 18. Pulmicort nebulizer 0.5 mg b.i.d. inhaled. 19. Plavix 75 mg p.o. daily. 20. Subcutaneous heparin 5000 units subcutaneously q.8h. for DVT prophylaxis. 21. Zofran 4 mg IV push q.6h. p.r.n. nausea/vomiting. 22. Fish Oil 300 mg p.o. b.i.d. 23. Synthroid 50 mcg p.o. daily. 24. Aspirin 81 mg p.o. daily. 25. Nifedipine extended release 90 mg p.o. daily. 26. Calcitriol 0.25 mcg p.o. daily. 26. Zocor 80 mg p.o. q.h.s. Please note the patient's atenolol was stopped secondary to renal issues and the patient is currently not on a beta froylan as Dr. Back held it for the patient's bronchospasm. This did appear to improve. Next, the patient is on NovoLog before meals at home; however, this has been held secondary to the patient's bouts of hypoglycemia. Next, the patient's Lantus has been held since admission for the same reason. Please note that the patient is not on lisinopril or another SCOTT inhibitor secondary to renal dysfunction. DISCHARGE DIET Discharge diet is as per hospitalist at [facility]. He has currently been on renal/diabetic/cardiac diet here. ACTIVITY As per hospitalist at [facility]. He has generally been on bedrest while here. PAIN MANAGEMENT Please see discharge medication list. WOUND CARE Wound care for cath site will be as per Cardiology and Hospitalist at [facility]. Currently this is stable. EXPECTED SIGNS/SYMPTOMS This will be as per [facility] providers upon discharge from that facility. RETURN TO CARE/NOTIFY PHYSICIAN Orders will be per [facility] providers upon discharge from that facility. Contact numbers given for Dr. Hill for during and after business hours. For pending lab results, follow with primary care. [facility]: This is not applicable. FOLLOWUPS Followups with Dr. Back of Cardiology as well as Dr. Hill of Primary Care as well as Dr. Leyva of Nephrology as well as other necessary followups will be as per the [facility] hospitalist staff and other providers there. PERTINENT LABS DURING THE STAY The patient's white count was 13,500 on admission. It did trend up to 19,800 by discharge. This was likely secondary to steroids. Hemoglobin was 10.2 on admission and 8.9 by discharge. It did trend down gently while here. A lot of this was likely dilutional. There was no clinical evidence of bleeding while here. Hematocrit ranged anywhere from 28.0 to the 32's. Platelets were normal while here. Differential did show a predominance of neutrophils which is not unexpected on the steroids. As far as metabolic panels go: The patient's sodium and potassium was normal throughout. The patient's chloride was normal throughout. Bicarbonate was normal initially but did get as low as 16. An anion gap climbed up to high teens as well. This was from the renal dysfunction. BUN did eventually climb as high as 94 and creatinine was 7.7 on discharge. It was in the low to mid 2's on admission. Blood sugars were generally in the 100s to 200s while here. There were some outliers in the 300s. Given his low blood sugars from previous to admission, a lot of his insulin was held as is noted above. Calcium has generally been normal throughout when corrected for albumin. Phosphorus was 3.1 on admission. It had climbed to 10.7 by discharge. Magnesiums were normal while here. Magnesium was normal on the day of discharge. AST did bump to 103 on 2016. It was normal by discharge. ALT was normal throughout. Alkaline phosphatase was a little elevated initially on the admission but had come down to normal. Troponins peaked at 64.9. It was trending down throughout the rest of his stay. Albumin was 3.3 on discharge. Lipid panel was notable for a total cholesterol 147, LDL of 100, HDL of 24. Lactic acid was normal x 5 while here. Urinalysis on admission showed 1+ blood, trace glucose, 2+ protein, 5-10 RBCs and trace bacteria. UA on showed a trace amount of ketones but was surprisingly otherwise normal except for 1+ protein. Creatinine kinase on admission was normal. Procalcitonin on admission was normal. TSH on admission was 3.21 and normal. Brain natriuretic peptide on admission was 16,500 and trended up to 36,300 by 05/04/2017. Respiratory PCR on admission was negative. Mycoplasma serologies were unremarkable. D-dimer on admission was not surprisingly elevated at 1,002. Sputum gram stain on admission showed several different bacteria. Sputum culture showed Klebsiella pneumoniae, heavy growth. It was resistant to ampicillin but sensitive to cefazolin, cefepime, ceftriaxone, ertapenem, gentamicin, Levaquin, meropenem, tigecycline, tobramycin, Bactrim, Zosyn. The patient is currently on Zosyn. Blood cultures x 2 from admission are negative to date. Urine for Strep pneumoniae and Legionella were negative. PERTINENT IMAGING WHILE HERE Chest x-ray on admission showed a hazy asymmetric right basilar airspace consolidation suggesting developing pneumonia as well as some congestive changes on top of this. Chest CT scan done the day of admission showed a right- sided airspace consolidation with small bilateral pleural effusion secondary to pneumonia and aspiration was a consideration. Next, there is some pneumobilia presumably related to a prior biliary intervention. A couple of months previous to this the patient had had issues with gallstones and had reportedly had an ERCP. His gallbladder had of course been removed. Subsequent chest x- rays did show resolution of the congestion; however, the infiltrate remained. This is not uncommon as changes in the chest x-ray do lag behind symptoms frequently. Bilateral renal ultrasound done without Doppler on 05/05/2017 showed mild cortical thinning and normal echogenicity. There was no hydronephrosis. This was otherwise unremarkable. Next, bedside postvoid residual demonstrated only a few milliliters of urine in the bladder and no evidence of retention. EKG on the day of admission demonstrated diffuse T-wave inversions in the inferior and precordial leads. There was about [address] depression in V4/V5/ V6. EKGs throughout the rest of the patient's stay showed persistence of the T- wave inversions in the inferior leads. The ST/T-wave changes in the precordial leads had effectively resolved. QT intervals were generally normal while here except for one EKG in which it was a little long. There were no apparent issues on telemetry. Echocardiogram done while here showed the left ventricle was globally hypokinetic. There was moderate elevation in pulmonary artery pressure as well as for 4-valve regurgitation. The tricuspid regurgitation was moderate. The pulmonary artery pressure was about 53 on systole. The pulmonary valve insufficiency was mild. The ejection fraction was 40%. There was biatrial dilatation. There was mitral annulus calcification with moderate mitral regurgitation. There was aortic sclerosis with a trace of aortic insufficiency. Cardiac catheterization done 05/02/2017 showed occlusion to the graft to the right coronary artery. There was successful recanalization and thrombectomy and PTCA of the graft of the RCA. This was ballooned. The patient was put on Integrilin to decrease the thrombus burden and he was brought back the day thereafter on 05/03/2017. There was successful PTCA and stent of the vein graft to the RCA using 3.0 x 26 and 3.5 x 18 drug-eluding Resolute [place] stents, so two stents were placed. PERTINENT VITAL SIGNS DURING THE STAY The patient did initially require as high as 6 liters of high-flow nasal cannula. He has since been weaned down to 4 liters currently and saturating in the high 90s as far as his percent. His respirations have remained in the 30s for most of the time. He was requiring accessory muscles the first couple days of admission; however, has not the past couple of days. Heart rates have been normal. Blood pressures have been unremarkable. He has been afebrile while here. HISTORY OF PRESENT ILLNESS AND HOSPITAL COURSE This is a pleasant 86-year-old male who just established in my clinic over the past couple of months. He has a known history of coronary artery disease and is status post coronary artery bypass. He has a known history of type 2 diabetes as well as chronic kidney disease and his baseline creatinine appears to hover around 2.0. He also has a history of hypertension and hyperlipidemia. His drawer in hand is Dr. Back. He was seen in the emergency room a few days previous to our visit in the office and was noted to have low blood sugars and weakness. He didn't have any other focal issues at that time. They did adjust his insulin. The next day, after leaving the ER he was noted to be progressively short of air on exertion as well as lightheaded. He eventually developed symptoms like that at rest. He was seen in clinic for a followup and review of systems did note he had a near-syncopal episode on exertion and progressive dyspnea on exertion. For further details on this please see the history of present illness. He did fall and bump his left temporomandibular area slightly. He was able to catch himself. He had no concussion/ postconcussion symptoms then or throughout. He had no residual pain by the time he was seen by me, but the main issue was clearly his cardiorespiratory status. An EKG done the clinic showed the EKG changes mentioned above. He was immediately sent to the ER where he was noted to have elevated troponin. Dr. Back admitted the patient and performed a cardiac catheterization with results that are as noted above. There was a significant clot burden in the ascending vessel and thus it was ballooned and the patient was put on Integrilin. The next day Dr. Back went back in with another catheterization and applied the stents noted above. The patient's troponin did get as high as 64. Please see above for the other extensive imaging and laboratory evaluation done on this patient's behalf while here. He was optimized on his antiplatelets with Plavix and aspirin. He was on the aspirin at home. He was maintained on a statin as noted above. He cannot be on an SCOTT inhibitor right now secondary to his renal issues. His beta froylan was held secondary to bronchospasm and the bronchospasm did improve. This may be started at a later date. It was held by Dr. Back. The patient was noted to have some bronchospasm while here; however, the above-listed medications which included IV steroids, nebulizers, inhaled 3% saline, Tessalon Perles and the other meds noted above did help this. Dr. Martinez of Pulmonology and Intensive Care Medicine was consulted as well. The patient's troponins trended down in subsequent days. His cardiorespiratory status on discharge was gradually improving. The patient does have a known history of chronic kidney disease with his baseline creatinines being about 2.0. He has followed with Dr. Leyva of Nephrology in the past. He obviously received several insults to his kidneys while here which were unavoidable I'm afraid. He has been adamantly against dialysis and was consulted on this several times. As his creatinine trended up , the patient apparently rethought this and on the day of discharge decided he wanted to pursue dialysis and was thus transferred to [facility] as noted. Dr. Leyva of Nephrology was available, graciously, on the phone. We were left with trying to do our best to treat the results of the kidney dysfunction. He did become mildly to moderately acidotic and sodium bicarbonate was started. His phosphorus went up and the PhosLo was started. The patient was already on calcitriol. The patient's review of systems was negative for uremia, as was his physical exam. His other electrolytes were generally unremarkable while here. His postvoid residual at the bedside as well as a renal ultrasound were unremarkable. He will be sent to [facility] to be evaluated for renal replacement therapy. Hopefully, he will not need this chronically. In regards to the patient's COPD. Please see above for treatment of this. He was bronchospastic for a period time while here but, by discharge, this had resolved. The patient was noted to have a pneumonia as listed above. This did grow out Klebsiella pneumoniae with the sensitivities as noted above. The patient was on Zosyn while here. He can probably be converted to Rocephin or another of the antibiotics noted above, but will defer this to the hospitalist staff at [facility]. In regards to the patient's heart failure. Clinically, the patient was not fluid overloaded by discharge. Please see the above for extensive imaging and laboratory as well as other workup and medications. Dr. Back is managing this. The patient was oliguric for the last couple days and actually completely anuric by discharge. In regards to the patient's chronic multifactorial anemia. The patient did get fluids on admission which likely caused a dilutional effect. It was trending down gently while here. Fluids were stopped eventually as the patient became completely oliguric by discharge. In regards to the patient's leukocytosis while here. This was initially likely secondary to the pneumonia but was likely a result of the steroids by discharge. In regards to the patient's hypothyroidism. This was stable and under control. In regards to the patient's recent episodes of hypoglycemia and history of type 2 diabetes. His insulin was held as noted above. His blood sugars were generally in the 100s initially but did trend up to the 200s when put on the steroids. His NovoLog sliding scale was increased to a high dose and we hadn't had quite enough time to figure out if this was going to work. His sugars were still a little high and it is a consideration that some of his other insulin be reinstituted, but will defer this to the staff at [facility]. For DVT prophylaxis, the patient was actually on Integrilin for a period of time in trying to break down the clot in the graft to his RCA. He was also on subcutaneous heparin thereafter. For GI prophylaxis, the patient was on an oral diet while here as noted above. He was also started on IV Protonix as he wasn't eating much initially. The patient is a DO NOT RESUSCITATE and DO NOT INTUBATE and he is very adamant about this. Disposition is to [facility] in stable condition at this time. ARTHUR
== END 2017-05-07 23:15 | disposition short-term general hospital (02) | DRG 246 ==
LOC: ED 12:12 → CCU 12:12
PROVIDERS: ADMIT Internal Medicine Cardiovascular Disease; ATTEND Internal Medicine Cardiovascular Disease